=== PATIENT | male | born 1935 ===

== ENCOUNTER 2016-10-01 15:17 | Inpatient (IN) | payer MEDICARE, OTHER ==
[2016-10-01] MEDS ORDERED: Iohexol 240 (50 ml) PO STA (16:13)
[2016-10-01] MEDS ORDERED: Sodium Chloride 0.9% 1,000 ML IV ONE (16:13)
[2016-10-01 16:47] LABS: BASO % 0.3 % (0.0-2.0); EOS % 0.1 % (0.0-4.0); HEMATOCRIT 36.5 % (35.0-51.0); LYMPH # 0.8 K/uL (1.0-4.3); LYMPH % 5.9 % (20.0-40.0); MEAN CORPUSCULAR HEMOGLOBIN 22.5 pg (27.0-31.0); MEAN CORPUSCULAR HGB CONC 31.4 g/dL (33.0-37.0); MEAN PLATELET VOLUME 8.8 fL (7.2-11.7); MONO # 0.7 K/uL (0.0-0.8); MONO % 5.5 % (0.0-10.0); NRBC % 0.1 % (0.0-2.0); PLATELET COUNT 252 K/uL (130-400); RED CELL DISTRIBUTION WIDTH 20.3 % (11.5-14.5)
[2016-10-01 16:48] LABS: MEAN CELL VOLUME 71.8 fL (80.0-94.0); WHITE BLOOD COUNT 13.5 K/uL (4.8-10.8)
[2016-10-01] MEDS ORDERED: Iohexol 240 (50 ml) ONE (16:52)
[2016-10-01] MEDS ORDERED: Sodium Chloride 0.9% 1,000 ML ONE (16:53)
[2016-10-01 16:55] LABS: INR 1.1
[2016-10-01 16:58] LABS: CHLORIDE 99 mmol/L (98-107)
[2016-10-01 16:59] LABS: POTASSIUM 4.8 mmol/L (3.6-5.2); SODIUM 137 mmol/L (132-148)
[2016-10-01 17:01] LABS: ALKALINE PHOSPHATASE 78 U/L (38-126); AST/SGOT 60 U/L (17-59); BILIRUBIN,TOTAL 1.4 mg/dL (0.2-1.3); BLOOD UREA NITROGEN 16 mg/dL (9-20); CARBON DIOXIDE 27 mmol/L (22-30); GFR AFRICAN-AMERICAN > 60; TOTAL PROTEIN 8.8 g/dL (6.3-8.3)
[2016-10-01 17:02] LABS: ALT/SGPT 32 U/L (21-72); CALCIUM 9.3 mg/dl (8.6-10.4); GLUCOSE,RANDOM 104 mg/dL (75-110)
[2016-10-01 17:06] LABS: ALB/GLOB RATIO 1.1 (1.0-2.1)
--- NOTE | 2016-10-01 17:27 | C.PDOC ---
Time Seen by Provider: 10/01/16 15:50 Chief Complaint (Nursing): Abdominal Pain History Per: Patient, Family Onset/Duration Of Symptoms: Hrs (since 11am this morning) Current Symptoms Are (Timing): Still Present Severity: Moderate Location Of Pain/Discomfort: Diffuse Quality Of Discomfort: Unable To Describe, "Pain" Associated Symptoms: Nausea, Vomiting Alleviating Factors: None Last Bowel Movement: Today Additional History Per: Prior Records Past Medical History Reviewed: Historical Data, Nursing Documentation, Vital Signs Vital Signs: Last Vital Signs Temp 98 F 10/01/16 20:00 Pulse 85 10/01/16 20:00 Resp 16 10/01/16 20:00 BP 185/89 H 10/01/16 20:00 Pulse Ox 98 10/01/16 20:38 - Medical History PMH: Asthma, Bronchitis, HTN, Hypercholesterolemia, Pneumonia (2010) Surgical History: Appendectomy, Endoscopy, Hernia Repair Other Surgeries: Colon resection. - [facility] Procedures INSPECTION OF LOWER INTESTINAL TRACT, ENDO (02/18/16) Family History: States: Unknown Family Hx - Social History Hx Tobacco Use: No Hx Alcohol Use: Yes (social ,last drink yesterday,3 beers) Hx Substance Use: No - Immunization History Hx Tetanus Toxoid Vaccination: No Hx Influenza Vaccination: Yes Hx Pneumococcal Vaccination: Yes Review Of Systems Except As Marked, All Systems Reviewed And Found Negative. Constitutional: Negative for: Fever, Weakness Cardiovascular: Negative for: Chest Pain Respiratory: Negative for: Shortness of Breath, Hemoptysis Gastrointestinal: Positive for: Nausea, Vomiting, Abdominal Pain. Negative for : Diarrhea, Constipation, Melena, Hematochezia, Hematemesis Genitourinary: Negative for: Dysuria Musculoskeletal: Positive for: Back Pain. Negative for: Neck Pain Skin: Negative for: Rash Neurological: Negative for: Weakness, Numbness, Seizures, Altered Mental Status , Headache Physical Exam - Physical Exam Appears: Non-toxic, No Acute Distress Skin: Normal Color, Warm, Dry, No Rash Head: Atraumatic, Normacephalic Eye(s): bilateral: PERRL, EOMI Neck: Normal ROM, Supple Cardiovascular: Rhythm Regular Respiratory: Normal Breath Sounds, No Accessory Muscle Use Gastrointestinal/Abdominal: Soft, Tenderness (nonspecific) Back: No CVA Tenderness Male Genital: No Testicular Tenderness, No Testicular Swelling, No Scrotal Swelling Extremity: Normal ROM Neurological/Psych: Oriented x3, Normal Motor, Normal Sensation ED Course And Treatment - Laboratory Results Result Diagrams: 10/01/16 16:42 10/01/16 16:42 O2 Sat by Pulse Oximetry: 98 Pulse Ox Interpretation: Normal - CT Scan/US CT abd/pelv Other Rad Studies (CT/US): Read By Radiologist, Radiology Report Reviewed CT/US Interpretation: SBO. - Physician Consult Information Physician Contacted: Kishore Gracia (Surg.) Outcome Of Conversation: He will consult. Pt also signed out to the neurosurgical nurse practitioner loss prevention representative. Progress - Interventions Interventions:: Observation, Intravenous fluid - Medications Administered Intravenous: Antiemetic, Other (PPI) - Data Reviewed Data Reviewed: Lab, Diagnostic imaging, Old records - Patient Status Patient status: Partially improved - Continuity of Care Discussed patient case with:: Patient, Family-HIPPA compliant, ED Nurse, PMD Discussed pt. case with computer consultant/specialty: General Surgery - Patient Plan Patient Plan: Admission Disposition Discussed With Dr.: Russell Fairbanks Comment: He accepted pt on his service and requested Dr. Gracia be consulted for surgery. Doctor Will See Patient In The: Hospital Counseled Patient/Family Regarding: Studies Performed, Diagnosis - Disposition Disposition: HOSPITALIZED Disposition Time: 21:03 Condition: GUARDED - Clinical Impression Clinical Impression: SBO (small bowel obstruction)
[2016-10-01 17:41] LABS: RBC URINE 3 /hpf (0-3); URINE BACTERIA RARE (<OCC); URINE BILIRUBIN NEGATIVE (NEGATIVE); URINE BLOOD NEGATIVE (NEGATIVE); URINE COLOR Yellow (YELLOW); URINE GLUCOSE (UA) NORMAL (Normal); URINE KETONE NEGATIVE (NEGATIVE); URINE LEUKOCYTE ESTERASE NEG Leu/uL (Negative); URINE PROTEIN 1+ mg/dL (NEGATIVE); URINE UROBILINOGEN NORMAL mg/dL (0.2-1.0); WBC URINE 3 /hpf (0-5)
[2016-10-01 17:50] LABS: EOSINOPHIL 1 % (0-4); NEUTROPHIL 87 % (50-75); TOTAL CELLS COUNTED 100
[2016-10-01] MEDS ORDERED: Iodixanol 320 MG/ML 100 ML BOTTLE IV ONE (18:38)
--- NOTE | 2016-10-01 22:09 | CP.PCM.CON ---
History of Present Illness - History of Present Illness History of Present Illness: Surgery: Dr. Gracia Reason for consult: SBO CC: vomiting, multiple episodes HPI: Patient is an 81 y/o male w/ extensive past surgical history who presents complaining of diffuse abdominal pain, nausea, and multiple episodes of vomiting that started this morning. Patient describes the emesis is bilious, nonbloody. He reports the vomiting started spontaneously this morning without provocating event. He complains of excessive belching and abdominal bloating. He describes the pain in his stomach as dull mostly in the epigastric area radiating to remainder of abdomen and right flank. He reports similar symptoms in the past which required a tube in his nose back in 2014. Eventually his obstruction resolved with conservative treatment only. PMH: HTN, HLD, asthma, colon ca s/p partial colectomy and chemotherapy PSH: partial colectomy w/ reanastomosis, at some point patient had ostomy, possible diverting (patient unsure), in which he developed a para-stomal hernia requiring repair,lap appendectomy, colonoscopy social: lives at home alone, performs all ADLS, denies tobacco use, social ETOH use PMD: Dr. Fairbanks Review of Systems - Review of Systems All systems: reviewed and no additional remarkable complaints except Review of Systems: unless stated in HPI - Constitutional Constitutional: absent: Chills, Fever - EENT Eyes: absent: Blurred Vision, Change in Vision Ears: Dizziness. absent: Disequilibrium Nose/Mouth/Throat: absent: Nasal Congestion, Nasal Trauma - Cardiovascular Cardiovascular: absent: Chest Pain, Syncope - Respiratory Respiratory: absent: Cough, Wheezing - Gastrointestinal Gastrointestinal: Abdominal Pain, Belching, Bloating, Constipation, Cramping, Nausea, Vomiting. absent: Coffee Ground Emesis, Diarrhea - Genitourinary Genitourinary: absent: Dysuria, Hematuria - Musculoskeletal Musculoskeletal: absent: Numbness, Tingling - Psychiatric Psychiatric: absent: Confusion, Depression - Endocrine Endocrine: absent: Polydipsia, Polyphagia - Hematologic/Lymphatic Hematologic: absent: Easy Bleeding, Easy Bruising Past Patient History - Infectious Disease Hx of Infectious Diseases: None - Past Medical History & Family History Past Medical History?: Yes - Past Social History Smoking Status: Never Smoked - CARDIAC Hx Hypercholesterolemia: Yes Hx Hypertension: Yes - PULMONARY Hx Asthma: Yes Hx Bronchitis: Yes Hx Pneumonia: Yes (2010) - NEUROLOGICAL Hx Neurological Disorder: No - HEENT Hx HEENT Problems: Yes Other/Comment: Difficulty hearing of R Ear - RENAL Hx Chronic Kidney Disease: No - ENDOCRINE/METABOLIC Hx Endocrine Disorders: No - HEMATOLOGICAL/ONCOLOGICAL Hx Blood Disorders: Yes Hx Cancer: Yes (colorectal) Hx Chemotherapy: Yes (2002) - INTEGUMENTARY Hx Dermatological Problems: No - MUSCULOSKELETAL/RHEUMATOLOGICAL Hx Musculoskeletal Disorders: No Hx Falls: No - GASTROINTESTINAL Hx Gastrointestinal Disorders: Yes Other/Comment: COLON CANCER - GENITOURINARY/GYNECOLOGICAL Hx Genitourinary Disorders: No - PSYCHIATRIC Hx Substance Use: No - SURGICAL HISTORY Hx Appendectomy: Yes - ANESTHESIA Hx Anesthesia: Yes Hx Anesthesia Reactions: No Hx Malignant Hyperthermia: No Meds Allergies/Adverse Reactions: Allergies Allergy/AdvReac Type Severity Reaction Status Date / Time diphenhydramine HCl AdvReac SHORTNESS Verified 02/19/16 17:11 [From Benadryl] OF BREATH Physical Exam - Constitutional Appears: Non-toxic, No Acute Distress - Head Exam Head Exam: ATRAUMATIC, NORMOCEPHALIC - Eye Exam Eye Exam: EOMI, Normal appearance - ENT Exam ENT Exam: Mucous Membranes Moist - Respiratory Exam Respiratory Exam: NORMAL BREATHING PATTERN. absent: Respiratory Distress - Cardiovascular Exam Cardiovascular Exam: REGULAR RHYTHM. absent: Tachycardia - GI/Abdominal Exam GI & Abdominal Exam: Distended, Soft, Tenderness (mainly epigastric ). absent: Guarding, Rebound, Rigid Additional comments: midline surgical incisions scar noted - Extremities Exam Extremities exam: Positive for: normal inspection. Negative for: calf tenderness - Neurological Exam Neurological exam: Alert - Psychiatric Exam Psychiatric exam: Normal Affect, Normal Mood - Skin Skin Exam: Dry, Intact, Warm Results - Vital Signs Recent Vital Signs: Last Vital Signs Temp 98 F 10/01/16 20:00 Pulse 85 10/01/16 20:00 Resp 16 10/01/16 20:00 BP 185/89 H 10/01/16 20:00 Pulse Ox 98 10/01/16 21:04 - Labs Result Diagrams: 10/01/16 16:42 10/01/16 16:42 Assessment & Plan - Assessment and Plan (Free Text) Assessment: 81 y/o male w/ small bowel obstruction Plan: -CT shows SBO, w/ moderate hiatal hernia -NGT on low continuous suction -NPO -IVFs -electrolyte repletion prn -serial abdominal exams -am labs -zofran for nausea -d/w Dr. Basil Oro
[2016-10-01] MEDS ORDERED: HYDROmorphone 0.5 mg/0.5 ml ISec IVP PRN (22:19)
[2016-10-01] MEDS: Lactated Ringer's 1,000 ML IV SCH (22:50)
[2016-10-02] MEDS: Lactated Ringer's 1,000 ML IV SCH ×3 (06:30→23:30)
--- NOTE | 2016-10-02 07:56 | CP.PCM.PN ---
Subjective - Date & Time of Evaluation Date of Evaluation: 10/02/16 Time of Evaluation: 07:53 - Subjective Subjective: Surgery: Dr. Gracia Pt seen and examined Resting comfortably in bed. Pain controlled. No N/V. Passing flatus no BM. Objective - Vital Signs/Intake and Output Vital Signs (last 24 hours): Temp Pulse Resp BP Pulse Ox 98.3 F 80 20 156/73 H 96 10/02/16 00:00 10/02/16 00:00 10/02/16 00:00 10/02/16 00:00 10/02/16 00:00 Intake and Output: 10/02/16 10/02/16 06:59 18:59 Output Total 1200 Balance -1200 - Medications Medications: Current Medications Heparin Sodium (Porcine) (Heparin) 5,000 units SC Q12 [facility] Hydromorphone HCl (Dilaudid) 0.5 mg IVP Q4H PRN PRN Reason: Pain, moderate (4-7) Lactated Ringer's (Lactated Ringer's) 1,000 mls @ 120 mls/hr IV .Q8H20M [facility] Last Admin: 10/02/16 06:30 Dose: 120 mls/hr Ondansetron HCl (Zofran Inj) 4 mg IVP Q4 [facility] Last Admin: 10/02/16 05:00 Dose: 4 mg Pantoprazole Sodium (Protonix Inj) 40 mg IVP DAILY [facility] - Labs Labs: PT 12.3 SECONDS (9.7-12.2) H 10/01/16 16:42 INR 1.1 10/01/16 16:42 APTT 30 SECONDS (21-34) 10/01/16 16:42 - Constitutional Appears: Non-toxic, No Acute Distress - Head Exam Head Exam: ATRAUMATIC, NORMOCEPHALIC - Eye Exam Eye Exam: EOMI - ENT Exam ENT Exam: Mucous Membranes Moist, Normal External Ear Exam (NGT in place) - Neck Exam Neck Exam: Full ROM - Respiratory Exam Respiratory Exam: NORMAL BREATHING PATTERN. absent: Accessory Muscle Use, Respiratory Distress - GI/Abdominal Exam GI & Abdominal Exam: Firm (B/L lower quadrants), Soft. absent: Distended, Guarding, Rigid, Tenderness, Rebound - Extremities Exam Extremities Exam: absent: Calf Tenderness, Pedal Edema - Neurological Exam Neurological Exam: Alert, Awake, Oriented x3 - Psychiatric Exam Psychiatric exam: Normal Mood Assessment and Plan - Assessment and Plan (Free Text) Assessment: 81M w. SBO -NGT 1100cc initially in ED, 300cs overnight, non-bilious -Keep NGT to suction -NPO -IVF -pain meds -serial exams -monitor bowel fxn -d/w attending Mary PGY2
[2016-10-02 08:20] LABS: BASO % 0.3 % (0.0-2.0); EOS % 0.3 % (0.0-4.0); HEMATOCRIT 32.8 % (35.0-51.0); LYMPH # 1.1 K/uL (1.0-4.3); MEAN CELL VOLUME 70.8 fL (80.0-94.0); MEAN CORPUSCULAR HEMOGLOBIN 22.8 pg (27.0-31.0); MEAN CORPUSCULAR HGB CONC 32.3 g/dL (33.0-37.0); MEAN PLATELET VOLUME 9.1 fL (7.2-11.7); MONO % 11.5 % (0.0-10.0); NRBC % 0.1 % (0.0-2.0); RED CELL DISTRIBUTION WIDTH 20.3 % (11.5-14.5); WHITE BLOOD COUNT 8.5 K/uL (4.8-10.8)
--- NOTE | 2016-10-02 08:54 | CT ---
PROCEDURE: CT Abdomen and Pelvis with contrast HISTORY: Abd pain and vomiting. COMPARISON: None. TECHNIQUE: Contrast dose: 100 mL Visipaque 320 Radiation dose: Total exam DLP = 489.65 mGy-cm. This CT exam was performed using one or more of the following dose reduction techniques: Automated exposure control, adjustment of the mA and/or kV according to patient size, and/or use of iterative reconstruction technique. FINDINGS: LOWER THORAX: Moderate hiatal hernia. 2 mm subpleural nodule anterior segment right upper lobe. 4 mm subpleural nodule in right middle lobe. The 4 mm nodule is evident on prior examinations dating back to 06/24/2014. 4 mm nodule abutting or within the left major fissure, in the superior segment left lower lobe. Possible intrapulmonary lymph node. This is not included on prior examinations. By a Fleischner society criteria, no followup is advised for these nodules, given their size. LIVER: Unremarkable. No gross lesion or ductal dilatation. GALLBLADDER AND BILE DUCTS: Cholelithiasis. No mural thickening or pericholecystic fluid. 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 Unchanged compared to several prior examinations. No other pancreatic mass. No evidence of pancreatitis. No ductal dilatation. . SPLEEN: Unremarkable. ADRENALS: Unremarkable. No mass. KIDNEYS AND URETERS: Right upper pole cortical cyst, 1.6 cm. 10 mm cyst mid left kidney, stable. No calculus or hydronephrosis. VASCULATURE: Unremarkable. No aortic aneurysm. BOWEL: Mechanical small-bowel obstruction. Point of obstruction identified. This can be demonstrated on series 3, image 125 and series 601, image 30. This is approximately at the level of the distal jejunum or jejunoileal junction. Decompressed small bowel loops distal to this point of caliber change. Status post sigmoidectomy with colo rectal anastomosis. Evidence of prior appendectomy. APPENDIX: Status post appendectomy PERITONEUM: Right ventral abdominal mesh noted. No ascites. LYMPH NODES: Unremarkable. No enlarged lymph nodes. BLADDER: Unremarkable. REPRODUCTIVE: Normal prostate BONES: Stable small rounded lucent lesion in the left side of the L1 vertebral body, unchanged compared to 06/24/2014. 6 mm diameter. No other lytic or blastic lesions identified. Nonspecific finding. OTHER FINDINGS: None. IMPRESSION: Mechanical small-bowel obstruction at approximately the level of the jejunoileal junction. Moderate hiatal hernia. Cholelithiasis without evidence of cholecystitis. Additional minor findings as detailed above. Preliminary interpretation of this examination was reported by [facility] at 8:03 p.m. on 10/01/2016. There is concurrence of this report with the preliminary interpretation.
[2016-10-02 09:20] LABS: CHLORIDE 102 mmol/L (98-107); POTASSIUM 3.6 mmol/L (3.6-5.2)
[2016-10-02 09:22] LABS: ALB/GLOB RATIO 1.2 (1.0-2.1); AST/SGOT 29 U/L (17-59); BILIRUBIN,TOTAL 0.9 mg/dL (0.2-1.3); CARBON DIOXIDE 25 mmol/L (22-30); GFR AFRICAN-AMERICAN > 60
[2016-10-02 09:23] LABS: ALKALINE PHOSPHATASE 67 U/L (38-126); ALT/SGPT 30 U/L (21-72); BLOOD UREA NITROGEN 12 mg/dL (9-20); CALCIUM 8.6 mg/dl (8.6-10.4); GLUCOSE,RANDOM 87 mg/dL (75-110); MAGNESIUM 2.3 mg/dL (1.6-2.3)
[2016-10-02 09:36] LABS: SODIUM 137 mmol/L (132-148)
[2016-10-03 07:19] LABS: BASO % 0.4 % (0.0-2.0); EOS # 0.1 K/uL (0.0-0.7); EOS % 2.5 % (0.0-4.0); HEMATOCRIT 32.8 % (35.0-51.0); LYMPH % 17.6 % (20.0-40.0); MEAN CELL VOLUME 71.1 fL (80.0-94.0); MEAN CORPUSCULAR HEMOGLOBIN 22.6 pg (27.0-31.0); MEAN CORPUSCULAR HGB CONC 31.8 g/dL (33.0-37.0); MEAN PLATELET VOLUME 8.8 fL (7.2-11.7); MONO # 0.7 K/uL (0.0-0.8); MONO % 11.7 % (0.0-10.0); RED CELL DISTRIBUTION WIDTH 19.7 % (11.5-14.5); WHITE BLOOD COUNT 5.9 K/uL (4.8-10.8)
--- NOTE | 2016-10-03 07:45 | CARD ---
APPROVED REPORT EKG Measurement Heart [id number] <Conclusion> Normal sinus rhythm Nonspecific ST and T wave abnormality Abnormal ECG
[2016-10-03 07:48] LABS: CHLORIDE 107 mmol/L (98-107); POTASSIUM 3.9 mmol/L (3.6-5.2); SODIUM 138 mmol/L (132-148)
[2016-10-03 07:51] LABS: ALB/GLOB RATIO 1.2 (1.0-2.1); ALKALINE PHOSPHATASE 65 U/L (38-126); ALT/SGPT 24 U/L (21-72); AST/SGOT 28 U/L (17-59); BILIRUBIN,TOTAL 0.8 mg/dL (0.2-1.3); BLOOD UREA NITROGEN 9 mg/dL (9-20); CALCIUM 8.5 mg/dl (8.6-10.4); CARBON DIOXIDE 26 mmol/L (22-30); GFR AFRICAN-AMERICAN > 60; GLUCOSE,RANDOM 83 mg/dL (75-110); TOTAL PROTEIN 6.9 g/dL (6.3-8.3)
[2016-10-03] MEDS: Lactated Ringer's 1,000 ML IV SCH (08:02)
--- NOTE | 2016-10-03 08:19 | HP ---
HISTORY OF PRESENT ILLNESS: This is an 81-years old male with history of multiple medical problems who presented to Emergency Room with abdominal pain and vomiting for 1 days duration. The patient had previous similar presentation CAT scan of the abdomen and pelvis was done in the Emergency Room and was diagnosed with small-bowel obstruction , cholelithiasis without evidence of cholecystitis . REVIEW OF SYSTEMS: Other review of systems is negative. ALLERGIES: NKA. MEDICATIONS: Norvasc 5 mg daily, Ultram 50 mg daily, fenofibrate 200 mg daily, Crestor 10 mg daily and aspirin 81 mg daily. SOCIAL HISTORY: No history of smoking, ETOH or substance abuse. FAMILY HISTORY: Not contributory. PAST MEDICAL HISTORY: History of hypertension . PHYSICAL EXAMINATION: GENERAL: The patient is in bed, comfortable, not in cardiopulmonary distress. VITAL SIGNS: BP 120/70 temperature 98.2, respiratory rate 20 and pulse is 71. HEENT: Pupils equal and reactive to light. Normal-appearing mucosa of the conjunctivae, oropharyngeal and nasal membrane mucosa. NECK: Supple, no JVD, no carotid bruit, no lymph node and no thyromegaly. CHEST AND LUNGS: Bilateral symmetrical expansion, good air exchange, no rales and no rhonchi. CARDIOVASCULAR: PMI not localized. S1, S2. No additional sounds. ABDOMEN: Normoactive bowel sounds, no tenderness, no organomegaly and no masses. EXTREMITIES: No cyanosis, no clubbing , no edema ASSESSMENT: 1. Small bowel obstruction. 2. History of hypertension. 3. Hypertriglyceridemia. PLAN: At this point, we will remove the nasogastric tube as the patient passed flatus and abdominal pain is less. We will advanc diet to clear liquids as tolerated. Russell Fairbanks MD cc: 167 TT: 10/02/2016 21:04:20 sn MTDD
--- NOTE | 2016-10-03 09:20 | CP.PCM.PN ---
Subjective - Date & Time of Evaluation Date of Evaluation: 10/03/16 Time of Evaluation: 09:45 - Subjective Subjective: Surgery: Dr. Gracia Patient doing well today. Patient denies abdominal pain, n/v/f/c. He reports 2 BMs, one last night and 1 this am. + flatus. Tolerating clears. Objective - Vital Signs/Intake and Output Vital Signs (last 24 hours): Temp Pulse Resp BP Pulse Ox 97.8 F 67 20 164/78 H 97 10/03/16 00:00 10/03/16 06:00 10/03/16 06:00 10/03/16 06:00 10/03/16 06:00 Intake and Output: 10/03/16 10/03/16 06:59 18:59 Intake Total 1300 Output Total 900 Balance 400 - Medications Medications: Current Medications Heparin Sodium (Porcine) (Heparin) 5,000 units SC Q12 [facility] Last Admin: 10/02/16 22:26 Dose: 5,000 units Hydromorphone HCl (Dilaudid) 0.5 mg IVP Q4H PRN PRN Reason: Pain, moderate (4-7) Lactated Ringer's (Lactated Ringer's) 1,000 mls @ 120 mls/hr IV .Q8H20M [facility] Last Admin: 10/02/16 23:30 Dose: Not Given Ondansetron HCl (Zofran Inj) 4 mg IVP Q4 [facility] Last Admin: 10/03/16 04:45 Dose: 4 mg Pantoprazole Sodium (Protonix Inj) 40 mg IVP DAILY [facility] Last Admin: 10/02/16 11:35 Dose: 40 mg - Labs Labs: 10/03/16 07:04 10/03/16 07:04 PT 12.3 SECONDS (9.7-12.2) H 10/01/16 16:42 INR 1.1 10/01/16 16:42 APTT 30 SECONDS (21-34) 10/01/16 16:42 - Constitutional Appears: Non-toxic, No Acute Distress - Head Exam Head Exam: ATRAUMATIC, NORMOCEPHALIC - Eye Exam Eye Exam: EOMI, Normal appearance - ENT Exam ENT Exam: Mucous Membranes Moist - Respiratory Exam Respiratory Exam: NORMAL BREATHING PATTERN. absent: Respiratory Distress - Cardiovascular Exam Cardiovascular Exam: REGULAR RHYTHM. absent: Tachycardia - GI/Abdominal Exam GI & Abdominal Exam: Soft. absent: Distended, Guarding, Tenderness, Rebound - Neurological Exam Neurological Exam: Alert, Awake Assessment and Plan - Assessment and Plan (Free Text) Assessment: 81 y/o male w/ SBO-resolving Plan: -ADAT -encourage ambulation -serial abdominal exams -if continues to tolerate diet and have bowel function, is cleared from surgical standpoint -further recs per Dr. Basil Oro PGY1
--- NOTE | 2016-10-03 23:58 | PN ---
DATE: 10/03/2016 SUBJECTIVE: The patient is seen today. He has less abdominal pain, and he is still on liquid diet and IV fluids. PHYSICAL EXAMINATION: VITAL SIGNS: Blood pressure 135/75, temperature 98.7, respiratory rate 20, and pulse 67. HEENT: Pupils equal, reactive to light. Normal-appearing mucosa of the conjunctivae, oropharyngeal, and nasal membrane mucosa. NECK: Supple. No JVD. No carotid bruit. No lymph node. No thyromegaly. CHEST AND LUNGS: Bilateral symmetrical expansion. No rhonchi. CARDIOVASCULAR: PMI not localized. S1, S2. No additional sounds. ABDOMEN: Normoactive bowel sounds. No tenderness. No organomegaly. No masses. EXTREMITIES: No cyanosis. No clubbing. No edema. CENTRAL NERVOUS SYSTEM: Alert, awake, oriented x 3. No neurological deficits could be appreciated. ASSESSMENT: Small-bowel obstruction, which is resolving, and currently the patient is tolerating liquid diet. PLAN: We will advance to regular diet, and if the patient is tolerating, we will discharge home. We will discontinue IV fluid. [facility] cc: 167 TT: 10/03/2016 23:57:56 Confirmation # [id number] Dictation # [id number]
[2016-10-04 00:26] VITALS: RESP 20
[2016-10-04 08:11] VITALS: BP 160/74; PULSE 72; TEMP 98.1; O2SAT 95
--- NOTE | 2016-10-04 08:33 | CP.PCM.PN ---
Subjective - Date & Time of Evaluation Date of Evaluation: 10/04/16 Time of Evaluation: 08:30 - Subjective Subjective: PGY1 Progress Note for Dr. Gracia: Patient seen and examined. Patient states he feels well and denies abdominal pain, nausea, vomiting. Patient reports BM this morning and states he is eating well. Objective - Vital Signs/Intake and Output Vital Signs (last 24 hours): Temp Pulse Resp BP Pulse Ox 98.1 F 72 20 160/74 H 95 10/04/16 08:10 10/04/16 08:10 10/04/16 08:10 10/04/16 08:10 10/04/16 08:10 Intake and Output: 10/04/16 10/04/16 06:59 18:59 Intake Total 240 Balance 240 - Medications Medications: Current Medications Heparin Sodium (Porcine) (Heparin) 5,000 units SC Q12 [facility] Last Admin: 10/03/16 22:00 Dose: 5,000 units Ondansetron HCl (Zofran Inj) 4 mg IVP Q4 [facility] Last Admin: 10/04/16 08:03 Dose: 4 mg Pantoprazole Sodium (Protonix Inj) 40 mg IVP DAILY [facility] Last Admin: 10/04/16 08:03 Dose: 40 mg - Labs Labs: 10/03/16 07:04 10/03/16 07:04 PT 12.3 SECONDS (9.7-12.2) H 10/01/16 16:42 INR 1.1 10/01/16 16:42 APTT 30 SECONDS (21-34) 10/01/16 16:42 - Constitutional Appears: Non-toxic, No Acute Distress - Head Exam Head Exam: ATRAUMATIC, NORMOCEPHALIC - Eye Exam Eye Exam: EOMI - ENT Exam ENT Exam: Mucous Membranes Moist - Respiratory Exam Respiratory Exam: NORMAL BREATHING PATTERN - GI/Abdominal Exam GI & Abdominal Exam: Soft. absent: Distended, Guarding, Tenderness - Neurological Exam Neurological Exam: Alert, Awake - Psychiatric Exam Psychiatric exam: Normal Affect - Skin Skin Exam: Warm Assessment and Plan - Assessment and Plan (Free Text) Assessment: 81 year old male with resolving SBO -patient tolerating regular diet -patient cleared for discharge from surgical standpoint -D/W Dr. Gracia
--- NOTE | 2016-10-04 15:32 | CP.PCM.PN ---
Subjective - Date & Time of Evaluation Date of Evaluation: 10/04/16 Time of Evaluation: 11:00 - Subjective Subjective: Awake, alert, no abdominal pain, tolerating regular diet, NAD. Objective - Vital Signs/Intake and Output Vital Signs (last 24 hours): Temp Pulse Resp BP Pulse Ox 98.1 F 72 20 160/74 H 95 10/04/16 08:10 10/04/16 08:10 10/04/16 08:10 10/04/16 08:10 10/04/16 08:10 Intake and Output: 10/04/16 10/04/16 06:59 18:59 Intake Total 240 500 Balance 240 500 - Labs Labs: 10/03/16 07:04 10/03/16 07:04 PT 12.3 SECONDS (9.7-12.2) H 10/01/16 16:42 INR 1.1 10/01/16 16:42 APTT 30 SECONDS (21-34) 10/01/16 16:42 Assessment and Plan - Assessment and Plan (Free Text) Assessment: Patient admitted with small bowel obstruction, seen and examined, tolerating regular diet, no abdominal pain. Cleared by surgery. D/W DR Fairbanks, plan for discharge home today. Advised to follow up in the office in 1 week.
--- NOTE | 2016-10-06 09:14 | DS ---
This is a late entry for discharge summary done on 10/04/2016. REASON FOR ADMISSION: This is an 81-year-old male with history of multiple medical problems including previous abdominal surgeries who was admitted for small-bowel obstruction. COURSE OF HOSPITALIZATION: The patient was admitted to medical floor, and he had a nasogastric tube placed. The patient had a surgical consultation done by Dr. Gracia. The patient's abdominal pain was relieved, and the patient started to have flatus. The patient's nasogastric tube was removed, a nd started on liquid diet that he tolerated well. Diet was advanced to regular diet, and the patient tolerated and discharged home in a stable condition to continue the preadmission medications. FINAL DIAGNOSES: Mechanical small-bowel obstruction. Vitamin D deficiency. Hypertriglyceridemia. Russell Fairbanks MD cc: 167 TT: 10/06/2016 09:13:56 jn
== END 2016-10-04 15:12 | disposition home or self-care (01) | DRG 390 ==
LOC: C.ER 15:17 → C.3T 21:04
PROVIDERS: ADMIT Internal Medicine; ATTEND Internal Medicine
DX: K56.60 Unspecified intestinal obstruction (principal); I10 Essential (primary) hypertension; E78.1 Pure hyperglyceridemia; E78.5 Hyperlipidemia, unspecified; J45.909 Unspecified asthma, uncomplicated; E55.9 Vitamin D deficiency, unspecified; Z90.49 Acquired absence of other specified parts of digestive tract; Z85.038 Personal history of other malignant neoplasm of large intestine

== ENCOUNTER 2017-01-27 22:34 | Emergency (ER) | payer MEDICARE, OTHER ==
[2017-01-27] MEDS ORDERED: Iohexol 240 (50 ml) PO STA (23:04)
[2017-01-27] MEDS ORDERED: Sodium Chloride 0.9% 500 ML IV ONE (23:04)
[2017-01-27 23:23] LABS: RBC URINE 1 /hpf (0-3); URINE BACTERIA OCC (<OCC); URINE BILIRUBIN NEGATIVE (NEGATIVE); URINE BLOOD NEGATIVE (NEGATIVE); URINE COLOR Yellow (YELLOW); URINE GLUCOSE (UA) NORMAL (Normal); URINE KETONE NEGATIVE (NEGATIVE); URINE LEUKOCYTE ESTERASE NEG Leu/uL (Negative); URINE PROTEIN NEGATIVE (NEGATIVE); URINE UROBILINOGEN NORMAL mg/dL (0.2-1.0); WBC URINE 1 /hpf (0-5)
[2017-01-27] MEDS ORDERED: Iohexol 240 (50 ml) ONE (23:23)
[2017-01-27 23:24] LABS: BASO % 0.2 % (0.0-2.0); EOS % 0.3 % (0.0-4.0); HEMATOCRIT 33.7 % (35.0-51.0); LYMPH # 0.7 K/uL (1.0-4.3); LYMPH % 7.1 % (20.0-40.0); MEAN CELL VOLUME 71.8 fL (80.0-94.0); MEAN CORPUSCULAR HEMOGLOBIN 23.5 pg (27.0-31.0); MEAN CORPUSCULAR HGB CONC 32.7 g/dL (33.0-37.0); MONO # 0.8 K/uL (0.0-0.8); MONO % 8.1 % (0.0-10.0); PLATELET COUNT 245 K/uL (130-400); RED CELL DISTRIBUTION WIDTH 18.9 % (11.5-14.5); WHITE BLOOD COUNT 10.4 K/uL (4.8-10.8)
[2017-01-27] MEDS ORDERED: Sodium Chloride 0.9% 1,000 ML ONE (23:25)
[2017-01-27 23:33] LABS: CHLORIDE 106 mmol/L (98-107); POTASSIUM 4.1 mmol/L (3.6-5.2); SODIUM 144 mmol/L (132-148)
[2017-01-27 23:35] LABS: GFR AFRICAN-AMERICAN > 60
[2017-01-27 23:36] LABS: ALB/GLOB RATIO 1.2 (1.0-2.1); ALKALINE PHOSPHATASE 67 U/L (38-126); ALT/SGPT 28 U/L (21-72); AST/SGOT 24 U/L (17-59); BILIRUBIN,TOTAL 0.6 mg/dL (0.2-1.3); BLOOD UREA NITROGEN 13 mg/dL (9-20); CALCIUM 9.6 mg/dl (8.6-10.4); CARBON DIOXIDE 20 mmol/L (22-30); GLUCOSE,RANDOM 134 mg/dL (75-110); TOTAL PROTEIN 7.6 g/dL (6.3-8.3)
--- NOTE | 2017-01-27 23:39 | C.PDOC ---
Time Seen by Provider: 01/27/17 22:54 Chief Complaint (Nursing): Abdominal Pain History Per: Patient, Family Onset/Duration Of Symptoms: Hrs (this afternoon) Current Symptoms Are (Timing): Better Severity: Moderate Location Of Pain/Discomfort: Periumbilical Quality Of Discomfort: "Pain" Associated Symptoms: Nausea, Vomiting (x2) Alleviating Factors: None Last Bowel Movement: Today Additional History Per: Prior Records Past Medical History Reviewed: Historical Data, Nursing Documentation, Vital Signs Vital Signs: Last Vital Signs Temp 97.4 F L 01/27/17 22:42 Pulse 84 01/28/17 01:30 Resp 16 01/28/17 01:30 BP 158/80 H 01/28/17 01:30 Pulse Ox 98 01/28/17 01:30 - Medical History PMH: Asthma, Bronchitis, HTN, Hypercholesterolemia, Pneumonia (2010) Surgical History: Appendectomy, Endoscopy, Hernia Repair - [facility] Procedures INSPECTION OF LOWER INTESTINAL TRACT, ENDO (02/18/16) Family History: States: Unknown Family Hx - Social History Hx Tobacco Use: No Hx Alcohol Use: No Hx Substance Use: No - Immunization History Hx Tetanus Toxoid Vaccination: Yes Hx Influenza Vaccination: Yes Hx Pneumococcal Vaccination: Yes Review Of Systems Except As Marked, All Systems Reviewed And Found Negative. Constitutional: Negative for: Fever, Weakness Cardiovascular: Negative for: Chest Pain Respiratory: Negative for: Shortness of Breath Gastrointestinal: Negative for: Constipation, Melena, Hematochezia, Hematemesis Genitourinary: Negative for: Dysuria Musculoskeletal: Negative for: Neck Pain, Back Pain Skin: Negative for: Rash Neurological: Negative for: Weakness, Numbness, Seizures, Altered Mental Status Physical Exam - Physical Exam Appears: Non-toxic, No Acute Distress Skin: Normal Color, Warm, Dry Head: Atraumatic, Normacephalic Eye(s): bilateral: PERRL, EOMI Oral Mucosa: Moist Neck: Normal ROM, Supple Cardiovascular: Rhythm Regular Respiratory: Normal Breath Sounds, No Accessory Muscle Use Gastrointestinal/Abdominal: Soft, No Tenderness Back: No CVA Tenderness Extremity: Normal ROM Neurological/Psych: Oriented x3, Normal Motor, Normal Sensation ED Course And Treatment - Laboratory Results Result Diagrams: 01/27/17 23:21 01/27/17 23:21 ECG: Interpreted By Me, Viewed By Me ECG Rhythm: Sinus Rhythm ECG Interpretation: No Acute Changes Rate From EC O2 Sat by Pulse Oximetry: 99 Pulse Ox Interpretation: Normal - CT Scan/US CT abd/pelv Other Rad Studies (CT/US): Read By Radiologist, Radiology Report Reviewed CT/US Interpretation: IMPRESSION: There are a few nondistended loops of small bowel in the pelvis and lower abdomen but it is unclear. if these are peristaltic or represent short strictures. There is however, no holdup of enteric contrast. Additional findings as described above. Progress Note: Pt is tolerating PO. No vomiting or abdominal pain during ED stay. Reassessment Condition: Improved Progress - Interventions Interventions:: Observation, Intravenous fluid - Medications Administered Oral: Antihypertensive Intravenous: Antiemetic - Data Reviewed Data Reviewed: Lab, Diagnostic imaging, EKG, Old records - Patient Status Patient status: Mostly improved - Continuity of Care Discussed patient case with:: Patient, Family-HIPPA compliant, ED Nurse - Patient Plan Patient Plan: Discharge, F/U with PCP, Continue present meds Disposition Counseled Patient/Family Regarding: Studies Performed, Diagnosis, Need For Followup, Rx Given - Disposition Referrals: Russell Fairbanks MD [Staff Provider] - Disposition: HOME/ ROUTINE Disposition Time: 02:09 Condition: IMPROVED Additional Instructions: Follow up with your doctor this week. Return to the ER if you develop fever, vomiting, abdominal pain, worsening of symptoms or if you have any other concerns. Prescriptions: Ondansetron [Zofran] 4 mg PO Q8H PRN #15 tab PRN Reason: Nausea/Vomiting Pantoprazole Sodium [Protonix] 40 mg PO DAILY #14 ect Instructions: Acute Nausea and Vomiting (ED) Forms: [employer] ([place]) Print Language: CHADIAN - Clinical Impression Clinical Impression: Vomiting
[2017-01-27 23:45] LABS: BASOPHIL 1 % (0-2); NEUTROPHIL 85 % (50-75); TOTAL CELLS COUNTED 100
[2017-01-28] MEDS ORDERED: Iodixanol 320 MG/ML 100 ML BOTTLE IV ONE (00:22)
[2017-01-28 02:58] VITALS: BP 139/73; PULSE 76; RESP 18; TEMP 97.9; O2SAT 98
--- NOTE | 2017-01-28 11:14 | CT ---
PROCEDURE: CT abdomen and pelvis dated 2016 HISTORY: Abdominal and vomiting, h/o SBO COMPARISON: Comparison made with the CT scan of the abdomen and pelvis 02/18/2016. TECHNIQUE: Contiguous axial images of the abdomen and performed following oral and intravenous injection of approximately 100 cc Visipaque 320 contrast material. Given. Coronal and Sagittal reformats generated. Radiation dose: Total exam DLP = 444.12 mGy-cm. This CT exam was performed using one or more of the following dose reduction techniques: Automated exposure control, adjustment of the mA and/or kV according to patient size, and/or use of iterative reconstruction technique. FINDINGS: LOWER THORAX: Re- demonstrated small subpleural nodules within the anteromedial aspect of the medial segment right middle lobe and another along the anterolateral convexity. Mild bibasilar atelectasis. No evidence of basilar effusion or pneumothorax. Large hiatal hernia again noted. Heart size within range of normal. No pericardial effusion. LIVER: The liver exhibits normal size measuring 12.4 cm in CC dimension. Mild fatty hepatic infiltration. Portal and splenic veins are opacified. No obvious hepatic mass or collection seen. GALLBLADDER AND BILE DUCTS: Multiple intraluminal gallbladder calculi. Gallbladder appears contracted. No obvious pericholecystic fluid collections seen. . PANCREAS: Unremarkable. No mass. No ductal dilatation. SPLEEN: Spleen exhibits normal size and attenuation pattern. ADRENALS: No adrenal masses. KIDNEYS AND URETERS: . The kidneys demonstrate relatively symmetric nephrograms. No evidence of nephrolithiasis. Prominent extrarenal pelves bilaterally right larger than left. There is mild columnization of both proximal and mid ureters. No evidence of intraluminal urinary. There is a small partially exophytic cyst posterior upper pole left kidney. BLADDER: Urinary bladder is physiologically distended. No evidence of intraluminal urinary bladder calculi. Prostate gland measures REPRODUCTIVE: Prostate gland measures approximately 3.4 cm. APPENDIX: Appendix is not visualized on this study. Clinic correlation with surgical history recommended. BOWEL: Evaluation of the bowel is limited due to incomplete opacification. Stomach is incompletely distended which may in part account thick-walled appearance. Gastritis not excluded. . . Few loops of nondistended small bowel in the lower abdomen exhibit minimal wall thickening nonspecific. This could represent peristaltic waves . Possibility of localized wall thickening due to inflammatory process or stricture not excluded. Clinical correlation recommended. . No evidence of acute complete mechanical small bowel obstruction. There appears to be an anastomosis involving the distal descending/sigmoid colon. Moderate amount. . Moderate amount of stool fluid present within the cecum ascending colon nonspecific. Rule out diarrheal illness. PERITONEUM: No gross free intraperitoneal air. No free fluid. LYMPH NODES: No significant adenopathy. VASCULATURE: Mild atherosclerotic plaque changes seen along the abdominal aorta and iliac arteries. No evidence of abdominal aortic or iliac artery aneurysm. BONES: Mild multilevel degenerative spondylosis of the lumbar and to a lesser degree lower thoracic spine OTHER FINDINGS: None. IMPRESSION: Moderate size hiatal hernia. Mild bibasilar atelectasis. 2 small vague nodular densities right middle lobe. Mild fatty hepatic infiltration. Cholelithiasis. There are a few narrowed the loops of small bowel on the lower abdomen/ pelvis with wall thickening. Findings could represent peristalsis however nonspecific localized inflammatory process/ enteritis or stricture not excluded however there is no evidence of complete small bowel obstruction. Stool fluid and air is present within the large bowel nonspecific. Rule out a diarrheal illness. Apparent postoperative changes of anastomosis involving the distal descending/ proximal sigmoid colon. Correlation with surgical history recommended.
--- NOTE | 2017-01-29 00:16 | CARD ---
APPROVED REPORT EKG Measurement Heart [id number] <Conclusion> Normal sinus rhythm Normal ECG
== END 2017-01-28 02:57 | disposition home or self-care (01) ==
LOC: C.ER 22:34
DX: R11.10 Vomiting, unspecified (principal); I10 Essential (primary) hypertension
CPT/HCPCS: 74177; 80053; 81001; 83690; 85025; 93005; 96374; 96375; 99284; C9113; J2405; J7040; Q9966; Q9967

== ENCOUNTER 2017-04-17 15:58 | Inpatient (IN) | payer MEDICARE, OTHER ==
[2017-04-17] MEDS ORDERED: Sodium Chloride 0.9% 1,000 ML IV ONE (16:44)
[2017-04-17] MEDS ORDERED: Iohexol 240 (50 ml) PO STA (16:44)
--- NOTE | 2017-04-17 16:44 | C.PDOC ---
History Of Present Illness 81-year-old male, presents to the emergency department with complaints of vomiting and epigastric abdominal pain that started at 03:00 this morning, Patient states he has a Hx of appendectomy, colon resection due to colon CA and hernia repair. Denies any fevers or chills. No other complaints at this time. Patient NPO since 12:00 Time Seen by Provider: 04/17/17 16:05 History Per: Patient History/Exam Limitations: no limitations Onset/Duration Of Symptoms: Hrs Past Medical History Reviewed: Historical Data, Nursing Documentation, Vital Signs Vital Signs: Last Vital Signs Temp 97.6 F 04/17/17 16:08 Pulse 78 04/17/17 19:16 Resp 19 04/17/17 18:13 BP 201/88 H 04/17/17 19:16 Pulse Ox 93 L 04/17/17 21:20 - Medical History PMH: Asthma, Bronchitis, HTN, Hypercholesterolemia, Pneumonia (2010) Surgical History: Appendectomy, Endoscopy, Hernia Repair - [facility] Procedures INSPECTION OF LOWER INTESTINAL TRACT, ENDO (02/18/16) Family History: States: No Known Family Hx - Social History Hx Tobacco Use: No Hx Alcohol Use: No Hx Substance Use: No - Immunization History Hx Tetanus Toxoid Vaccination: Yes Hx Influenza Vaccination: Yes Hx Pneumococcal Vaccination: Yes Review Of Systems Except As Marked, All Systems Reviewed And Found Negative. Constitutional: Negative for: Fever, Chills Cardiovascular: Negative for: Chest Pain Respiratory: Negative for: Shortness of Breath Gastrointestinal: Positive for: Nausea, Vomiting, Abdominal Pain. Negative for : Diarrhea Musculoskeletal: Negative for: Back Pain Physical Exam - Physical Exam Appears: Non-toxic, No Acute Distress Skin: Warm, Dry, No Rash Head: Atraumatic, Normacephalic Eye(s): bilateral: Normal Inspection, PERRL Nose: Normal Oral Mucosa: Moist Lips: Normal Appearing Neck: Normal ROM Chest: Symmetrical Cardiovascular: Rhythm Regular, No Murmur Respiratory: Normal Breath Sounds, No Accessory Muscle Use Gastrointestinal/Abdominal: Soft, Tenderness (mild, epigastric), Distention ( mild), No Guarding, No Rebound Extremity: Normal ROM Neurological/Psych: Oriented x3, Normal Speech ED Course And Treatment - Laboratory Results Result Diagrams: 04/17/17 16:53 04/17/17 16:50 O2 Sat by Pulse Oximetry: 93 - Radiology CXR: Interpreted by Me CXR Interpretation: Yes: No Acute Disease Progress - Re-Evaluation Re-evaluation Note: 04/17/17 17:30 APPEARS COMFORTABLE NAD NO VOMIT SINCE PRIOR EXAM 04/17/17 17:57 +VOMIT. LIMITED PO CONTRAST INTAKE. PHENERGAN GIVEN 04/17/17 19:30 RECUR PAIN. UNABLE TO COMPLETE PO CONTRAST. 04/17/17 21:15 CT REPORT REVIEWED. POSSIBLE OBSTRUCTION? PRIOR HO BOWEL OBSTRUCTION D/W DR FAIRBANKS WILL ADMIT - Data Reviewed Data Reviewed: Lab, Diagnostic imaging, EKG, Old records Disposition Counseled Patient/Family Regarding: Studies Performed, Diagnosis - Disposition Disposition: HOSPITALIZED Disposition Time: 21:18 Condition: STABLE - POA Present On Arrival: None - Clinical Impression Clinical Impression: Abdominal pain, Abnormal abdominal CT scan, Vomiting - Scribe Statement The provider has reviewed the documentation as recorded by the Scribe (Agustina Smith) All medical record entries made by the Scribe were at my direction and personally dictated by me. I have reviewed the chart and agree that the record accurately reflects my personal performance of the history, physical exam, medical decision making, and the department course for this patient. I have also personally directed, reviewed, and agree with the discharge instructions and disposition. Decision To Admit - Pt Status Changed To: Hospital Disposition Of: Observation - . Bed Request Type: Regular Admitting Physician: Russell Fairbanks Patient Diagnosis: Abdominal pain, Abnormal abdominal CT scan, Vomiting
[2017-04-17] MEDS ORDERED: Lactated Ringer's 1,000 ML IV ONE (16:51)
[2017-04-17] MEDS ORDERED: Iohexol 240 (50 ml) ONE (16:55)
[2017-04-17 16:56] LABS: BASO % 0.4 % (0.0-2.0); EOS # 0.2 K/uL (0.0-0.7); EOS % 2.5 % (0.0-4.0); LYMPH # 1.3 K/uL (1.0-4.3); LYMPH % 16.6 % (20.0-40.0); MEAN CELL VOLUME 73.4 fL (80.0-94.0); MEAN CORPUSCULAR HEMOGLOBIN 23.8 pg (27.0-31.0); MEAN CORPUSCULAR HGB CONC 32.4 g/dL (33.0-37.0); MEAN PLATELET VOLUME 8.7 fL (7.2-11.7); MONO # 0.7 K/uL (0.0-0.8); MONO % 9.3 % (0.0-10.0); NRBC % 0.1 % (0.0-2.0); RED CELL DISTRIBUTION WIDTH 18.8 % (11.5-14.5); WHITE BLOOD COUNT 7.6 K/uL (4.8-10.8)
[2017-04-17 17:07] LABS: ALB/GLOB RATIO 1.3 (1.0-2.1); ALKALINE PHOSPHATASE 89 U/L (38-126); ALT/SGPT 42 U/L (21-72); AST/SGOT 31 U/L (17-59); BILIRUBIN,TOTAL 0.8 mg/dL (0.2-1.3); BLOOD UREA NITROGEN 12 mg/dL (9-20); CALCIUM 8.9 mg/dl (8.6-10.4); CARBON DIOXIDE 23 mmol/L (22-30); CHLORIDE 100 mmol/L (98-107); GFR AFRICAN-AMERICAN > 60; GLUCOSE,RANDOM 109 mg/dL (75-110); POTASSIUM 3.8 mmol/L (3.6-5.2); SODIUM 136 mmol/L (132-148); TOTAL PROTEIN 8.2 g/dL (6.3-8.3)
[2017-04-17 17:09] LABS: RBC URINE 2 /hpf (0-3); URINE BILIRUBIN NEGATIVE (NEGATIVE); URINE COLOR Yellow (YELLOW); URINE GLUCOSE (UA) NORMAL (Normal); URINE KETONE NEGATIVE (NEGATIVE); URINE LEUKOCYTE ESTERASE NEG Leu/uL (Negative); URINE PROTEIN 1+ mg/dL (NEGATIVE); URINE UROBILINOGEN NORMAL mg/dL (0.2-1.0); WBC URINE < 1 /hpf (0-5)
[2017-04-17 17:10] LABS: URINE BLOOD TRACE (NEGATIVE)
--- NOTE | 2017-04-17 17:37 | RAD ---
PROCEDURE: CHEST RADIOGRAPH, 1 VIEW HISTORY: abd pain COMPARISON: Comparison is made to 02/18/2016 FINDINGS: LUNGS: No evidence of acute pulmonary disease. PLEURA: No pneumothorax or pleural fluid seen. CARDIOVASCULAR: Normal. OSSEOUS STRUCTURES: No significant abnormalities. VISUALIZED UPPER ABDOMEN: Possible retrocardiac hiatus hernia. OTHER FINDINGS: None. IMPRESSION: No evidence of acute pulmonary disease.
[2017-04-17] MEDS ORDERED: Iodixanol 320 MG/ML 100 ML BOTTLE IV ONE (18:16)
[2017-04-17] MEDS ORDERED: Morphine 4 MG/ML VIAL ONE (19:08)
--- NOTE | 2017-04-17 21:09 | CT ---
EXAM: CT Abdomen and Pelvis With Intravenous Contrast CLINICAL HISTORY: 81 years old, male; Pain; Abdominal pain; Generalized; Additional info: Abd pain TECHNIQUE: Axial computed tomography images of the abdomen and pelvis with intravenous contrast. All CT scans at this facility use one or more dose reduction techniques, viz.: automated exposure control; ma/kV adjustment per patient size (including targeted exams where dose is matched to indication; i.e. head); or iterative reconstruction technique. Coronal and sagittal reformatted images were created and reviewed. CONTRAST: 100 mL of VISIPAQUE 320 administered intravenously. COMPARISON: No relevant prior studies available. FINDINGS: Lower thorax: Mild atelectasis/scarring. 0.3 cm subpleural nodule vs focal scarring RIGHT middle lobe. Coronary artery calcifications. Moderate-sized hiatal hernia. ABDOMEN: Liver: Unremarkable. No mass. Gallbladder and bile ducts: Calcified gallstones. No ductal dilation. Pancreas: No ductal dilation. No mass. Spleen: No splenomegaly. Adrenals: No mass. Kidneys and ureters: Few probable renal cysts. No hydronephrosis. Stomach and bowel: Postsurgical changes of sigmoid colon. [id number] stool within nondilated colon proximal to anastomosis. Collapse of sigmoid colon distal to anastomosis. Few scattered diverticula within colon. No associated inflammatory stranding. No definite mural thickening. No obstruction. Appendix: Appendectomy. PELVIS: Bladder: Unremarkable. Reproductive: Unremarkable as visualized. ABDOMEN and PELVIS: Intraperitoneal space: No significant fluid collection. No free air. Bones/joints: Degenerative changes of spine. No acute fracture. Soft tissues: Probable scarring midline anterior abdominal wall. Postsurgical changes of RIGHT anterior abdominal wall. Vasculature: Moderate atherosclerotic disease. No aneurysm. Lymph nodes: No pathologically enlarged lymph nodes. IMPRESSION: 1. Diverticulosis without CT evidence of diverticulitis. 2. Postsurgical changes of sigmoid colon with collapsed bowel distal to anastomosis. Stricture not entirely excluded. Clinical correlation is needed. 3. Cholelithiasis. 4. Incidental/non-acute findings are described above.
[2017-04-18] MEDS: Dextrose 5%/0.9% NS 1,000 ML IV SCH ×2 (02:27→15:19)
--- NOTE | 2017-04-18 02:50 | CP.PCM.CON ---
History of Present Illness - History of Present Illness History of Present Illness: General Surgery Consult Note for Dr. 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 General surgery consulted for suspected SBO based on CT findings. Patient states he has had this pain in the past where he was diagnosed with SBO. He states pain occurred suddenly. He also reported multiple episodes of nonbloody, nonbilious vomiting. Patient reports that symptoms resolved when he arrived at the hospital. He rated pain as moderate. He described the pain as constant as sharp located in the epigastric region. He is currently denying pain and other symptoms. Denies alleviating and exacerbating factors. Patient is having flatus. No other complaints at this time. PMD: Dr. Fairbanks PMH: Smal bowel CA, Asthma, HTN, Hypercholesterolemia Meds: as per EMR Allergy: Diphenhydramine PSH: Appendectomy, Endoscopy, Hernia Repair, small bowel resection FH: unknown Social: denies tobacco/EtOH/illicit drug use Review of Systems - Constitutional Constitutional: absent: Chills, Fever - EENT Eyes: absent: Change in Vision, Discharge, Requires Corrective Lenses Ears: absent: Ear Discharge, Tinnitus, Dizziness Nose/Mouth/Throat: absent: Nasal Discharge, Sore Throat, Neck Mass - Cardiovascular Cardiovascular: absent: Chest Pain, Chest Pain at Rest, Chest Pain with Activity , Diaphoresis, Dyspnea, Dyspnea on Exertion - Respiratory Respiratory: absent: Cough, Dyspnea, Hemoptysis, Wheezing - Gastrointestinal Gastrointestinal: Abdominal Pain, Nausea, Vomiting. absent: Diarrhea - Genitourinary Genitourinary: absent: Change in Urinary Stream, Difficulty Urinating, Dysuria - Musculoskeletal Musculoskeletal: absent: Back Pain, Numbness, Tingling - Integumentary Integumentary: absent: Changing Lesions, New Lesions - Neurological Neurological: absent: Numbness, Tingling, Vertigo, Weakness - Psychiatric Psychiatric: absent: Anxiety, Depression, Homicidal Ideation, Suicidal Ideation - Endocrine Endocrine: absent: Fatigue, Palpitations - Hematologic/Lymphatic Hematologic: absent: Easy Bleeding, Easy Bruising, Lymphadenopathy Past Patient History - Infectious Disease Hx of Infectious Diseases: None - Past Medical History & Family History Past Medical History?: Yes - Past Social History Smoking Status: Never Smoked - CARDIAC Hx Hypercholesterolemia: Yes Hx Hypertension: Yes - PULMONARY Hx Asthma: Yes Hx Bronchitis: Yes Hx Pneumonia: Yes (2010) - NEUROLOGICAL Hx Neurological Disorder: No - HEENT Hx HEENT Problems: Yes Other/Comment: Difficulty hearing of R Ear - RENAL Hx Chronic Kidney Disease: No - ENDOCRINE/METABOLIC Hx Endocrine Disorders: No - HEMATOLOGICAL/ONCOLOGICAL Hx Blood Disorders: Yes Hx Cancer: Yes (colorectal) Hx Chemotherapy: Yes (2002) - INTEGUMENTARY Hx Dermatological Problems: No - MUSCULOSKELETAL/RHEUMATOLOGICAL Hx Musculoskeletal Disorders: No Hx Falls: No - GASTROINTESTINAL Hx Gastrointestinal Disorders: Yes Other/Comment: COLON CANCER - GENITOURINARY/GYNECOLOGICAL Hx Genitourinary Disorders: No - PSYCHIATRIC Hx Substance Use: No - SURGICAL HISTORY Hx Appendectomy: Yes - ANESTHESIA Hx Anesthesia: Yes Hx Anesthesia Reactions: No Hx Malignant Hyperthermia: No Meds Allergies/Adverse Reactions: Allergies Allergy/AdvReac Type Severity Reaction Status Date / Time diphenhydramine HCl AdvReac Verified 04/17/17 16:11 [From Ruben] - Medications Medications: Current Medications Amlodipine Besylate (Norvasc) 5 mg PO DAILY [facility] Aspirin (Ecotrin) 81 mg PO DAILY [facility] Home Med (Fenofibrate) 200 mg PO DAILY [facility] Dextrose/Sodium Chloride (Dextrose 5%/0.9% Ns 1000 Ml) 1,000 mls @ 100 mls/hr IV .Q10H [facility] Last Admin: 04/18/17 02:27 Dose: 100 mls/hr Ondansetron HCl (Zofran Tab) 4 mg PO Q8H PRN PRN Reason: Nausea/Vomiting Pantoprazole Sodium (Protonix Ec Tab) 40 mg PO DAILY [facility] Rosuvastatin Calcium (Crestor) 10 mg PO DAILY [facility] Physical Exam - Constitutional Appears: Non-toxic, No Acute Distress - Head Exam Head Exam: ATRAUMATIC, NORMOCEPHALIC - Eye Exam Eye Exam: Normal appearance - ENT Exam ENT Exam: Mucous Membranes Moist - Respiratory Exam Respiratory Exam: NORMAL BREATHING PATTERN - Cardiovascular Exam Cardiovascular Exam: REGULAR RHYTHM - GI/Abdominal Exam GI & Abdominal Exam: Normal Bowel Sounds, Soft. absent: Distended, Firm, Guarding, Rebound, Rigid, Tenderness Additional comments: midline scar from bowel rection laparoscopic scars from appendectomy - Extremities Exam Extremities exam: Negative for: calf tenderness - Back Exam Back exam: absent: CVA tenderness (L), CVA tenderness (R) - Neurological Exam Neurological exam: Alert, CN II-XII Intact, Oriented x3 - Psychiatric Exam Psychiatric exam: Normal Affect, Normal Mood - Skin Skin Exam: Dry, Intact, Normal Color, Warm Results - Vital Signs Recent Vital Signs: Last Vital Signs Temp 97.7 F 04/18/17 00:25 Pulse 90 04/18/17 00:25 Resp 18 04/18/17 00:25 BP 158/75 H 04/18/17 00:25 Pulse Ox 98 04/18/17 00:25 - Labs Result Diagrams: 04/17/17 16:53 04/17/17 16:50 Labs: Laboratory Results - last 24 hr 04/17/17 04/17/17 04/17/17 16:50 16:50 16:53 WBC 7.6 RBC 4.91 Hgb 11.7 L Hct 36.0 MCV 73.4 L MCH 23.8 L MCHC 32.4 L RDW 18.8 H Plt Count 237 MPV 8.7 Neut % (Auto) 71.2 Lymph % (Auto) 16.6 L [place] % (Auto) 9.3 Eos % (Auto) 2.5 Baso % (Auto) 0.4 Neut # 5.4 Lymph # 1.3 [place] # 0.7 Eos # 0.2 Baso # 0.0 Sodium 136 Potassium 3.8 Chloride 100 Carbon Dioxide 23 Anion Gap 16 BUN 12 Creatinine 1.0 Est GFR ( Amer) > 60 Est GFR (Non-Af Amer) > 60 Random Glucose 109 Calcium 8.9 Total Bilirubin 0.8 AST 31 ALT 42 Alkaline Phosphatase 89 Troponin I < 0.0120 Total Protein 8.2 Albumin 4.6 Globulin 3.6 Albumin/Globulin Ratio 1.3 Lipase 84 Urine Color Yellow Urine Clarity Clear Urine pH 6.0 Ur Specific [place] 1.013 Urine Protein 1+ H Urine Glucose (UA) Normal Urine Ketones Negative Urine Blood Trace H Urine Nitrate Negative Urine Bilirubin Negative Urine Urobilinogen Normal Ur Leukocyte Esterase Neg Urine WBC (Auto) < 1 Urine RBC (Auto) 2 Ur Squamous Epith Cells < 1 Assessment & Plan - Assessment and Plan (Free Text) Plan: 81 M with abdominal pain and nausea/vomiting; CT findings of diverticulosis and collapsed small bowel at presumed anastomosis -Patient asymptomatic currently and passing flatus -ADAT -Iv fluids -Serial abdominal exams -Management as per primary -Will follow -Discussed with Dr. Liz Renee PGY1
[2017-04-18] MEDS: Pantoprazole 40 mg EC Tab PO SCH (09:44)
[2017-04-18] MEDS: Enoxaparin 40 mg Syringe SC SCH (09:44)
[2017-04-18 11:20] LABS: HEMATOCRIT 35.3 % (35.0-51.0); MEAN CELL VOLUME 73.3 fL (80.0-94.0); MEAN CORPUSCULAR HEMOGLOBIN 23.5 pg (27.0-31.0); RED CELL DISTRIBUTION WIDTH 18.1 % (11.5-14.5); WHITE BLOOD COUNT 17.6 K/uL (4.8-10.8)
[2017-04-18 11:30] LABS: INR 1.3
--- NOTE | 2017-04-18 11:38 | CP.PCM.PN ---
Subjective - Date & Time of Evaluation Date of Evaluation: 04/18/17 Time of Evaluation: 11:37 - Subjective Subjective: gb ct scan shows stones this might be cause of pain Objective - Vital Signs/Intake and Output Vital Signs (last 24 hours): Temp Pulse Resp BP Pulse Ox 99.1 F 87 20 150/68 97 04/18/17 09:31 04/18/17 09:31 04/18/17 09:31 04/18/17 09:31 04/18/17 09:31 Intake and Output: 04/18/17 04/18/17 06:59 18:59 Intake Total 500 Output Total 1100 Balance -600 - Medications Medications: Current Medications Amlodipine Besylate (Norvasc) 5 mg PO DAILY [facility] Last Admin: 04/18/17 09:44 Dose: 5 mg Aspirin (Ecotrin) 81 mg PO DAILY [facility] Last Admin: 04/18/17 09:44 Dose: 81 mg Enoxaparin Sodium (Lovenox) 40 mg SC DAILY [facility] Last Admin: 04/18/17 09:44 Dose: 40 mg Fenofibrate (Tricor) 145 mg PO DAILY [facility] Last Admin: 04/18/17 09:45 Dose: 145 mg Dextrose/Sodium Chloride (Dextrose 5%/0.9% Ns 1000 Ml) 1,000 mls @ 100 mls/hr IV .Q10H [facility] Last Admin: 04/18/17 02:27 Dose: 100 mls/hr Ondansetron HCl (Zofran Tab) 4 mg PO Q8H PRN PRN Reason: Nausea/Vomiting Pantoprazole Sodium (Protonix Ec Tab) 40 mg PO DAILY [facility] Last Admin: 04/18/17 09:44 Dose: 40 mg Rosuvastatin Calcium (Crestor) 10 mg PO DAILY [facility] - Labs Labs: 04/18/17 11:15 04/17/17 16:50
[2017-04-18 11:56] LABS: BLOOD UREA NITROGEN 11 mg/dL (9-20); CALCIUM 8.3 mg/dl (8.6-10.4); CARBON DIOXIDE 24 mmol/L (22-30); CHLORIDE 98 mmol/L (98-107); GFR AFRICAN-AMERICAN > 60; GLUCOSE,RANDOM 104 mg/dL (75-110); POTASSIUM 3.7 mmol/L (3.6-5.2); SODIUM 132 mmol/L (132-148)
--- NOTE | 2017-04-18 17:03 | CP.PCM.PN ---
Subjective - Date & Time of Evaluation Date of Evaluation: 04/18/17 Time of Evaluation: 17:01 - Subjective Subjective: DISCUSSED PT CASE W DR. GUILLEN VIA TELEPHONE. PT SEEN BY SURGICAL TEAM. WILL ORDER FULL LIQUIDS PER DR. GUILLEN. ALSO NOTIFIED DR. GUILLEN OF WBC 17.6 FROM 7.6 YESTERDAY (SEE OFFICIAL LAB RESULTS). DR. GUILLEN WAS NEVER INFORMED OF LAB RESULTS. ONE DOSE OF BOTH CIPRO 400 MG IV AND FLAGYL 500 MG IV ORDERED PER MD REQUEST. STAT CBC AND BLOOD CULTURES ORDERED AND DR. GUILLEN TO BE NOTIFIED THIS EVENING OF CBC RESULTS. DISCUSSED THIS WITH PREVIOUS RN DANYELL AND ONCOMING RN KEYSHA. NO FURTHER ORDERS AT THIS TIME. Objective - Vital Signs/Intake and Output Vital Signs (last 24 hours): Temp Pulse Resp BP Pulse Ox 99.1 F 87 20 150/68 97 04/18/17 09:31 04/18/17 09:31 04/18/17 09:31 04/18/17 09:31 04/18/17 09:31 Intake and Output: 04/18/17 04/18/17 06:59 18:59 Intake Total 500 800 Output Total 1100 0 Balance -600 800 - Medications Medications: Current Medications Amlodipine Besylate (Norvasc) 5 mg PO DAILY [facility] Last Admin: 04/18/17 09:44 Dose: 5 mg Aspirin (Ecotrin) 81 mg PO DAILY [facility] Last Admin: 04/18/17 09:44 Dose: 81 mg Enoxaparin Sodium (Lovenox) 40 mg SC DAILY [facility] Last Admin: 04/18/17 09:44 Dose: 40 mg Fenofibrate (Tricor) 145 mg PO DAILY [facility] Last Admin: 04/18/17 09:45 Dose: 145 mg Dextrose/Sodium Chloride (Dextrose 5%/0.9% Ns 1000 Ml) 1,000 mls @ 100 mls/hr IV .Q10H [facility] Last Admin: 04/18/17 15:19 Dose: Not Given Ciprofloxacin (Cipro 400mg/200ml Dsw) 400 mg in 200 mls @ 133 mls/hr IVPB STAT STA Stop: 04/18/17 18:23 Metronidazole (Flagyl) 500 mg in 100 mls @ 100 mls/hr IVPB STAT STA Stop: 04/18/17 17:52 Ondansetron HCl (Zofran Tab) 4 mg PO Q8H PRN PRN Reason: Nausea/Vomiting Pantoprazole Sodium (Protonix Ec Tab) 40 mg PO DAILY [facility] Last Admin: 04/18/17 09:44 Dose: 40 mg Rosuvastatin Calcium (Crestor) 10 mg PO DAILY [facility] - Labs Labs: 04/18/17 11:15 04/18/17 11:15 PT 14.4 SECONDS (9.7-12.2) H 04/18/17 11:15 INR 1.3 04/18/17 11:15 APTT 32 SECONDS (21-34) 04/18/17 11:15
[2017-04-18] MEDS ORDERED: Ciprofloxacin 400mg/200ml D5W 400 MG/200 ML BAG IVPB STA (17:25)
[2017-04-18] MEDS ORDERED: metroNIDAZOLE IV 500 mg/100 ml 500 MG/100 ML BAG IVPB STA (17:26)
[2017-04-18 18:10] LABS: BASO # 0.1 K/uL (0.0-0.2); BASO % 0.5 % (0.0-2.0); EOS % 0.1 % (0.0-4.0); HEMATOCRIT 34.9 % (35.0-51.0); LYMPH % 5.5 % (20.0-40.0); MEAN CORPUSCULAR HEMOGLOBIN 23.3 pg (27.0-31.0); MEAN CORPUSCULAR HGB CONC 31.9 g/dL (33.0-37.0); MONO # 1.8 K/uL (0.0-0.8); MONO % 9.6 % (0.0-10.0); PLATELET COUNT 211 K/uL (130-400); RED CELL DISTRIBUTION WIDTH 18.5 % (11.5-14.5); WHITE BLOOD COUNT 18.5 K/uL (4.8-10.8)
[2017-04-18 18:39] LABS: NEUTROPHIL 83 % (50-75); TOTAL CELLS COUNTED 100
[2017-04-19] MEDS: metroNIDAZOLE IV 500 mg/100 ml 500 MG/100 ML BAG IVPB SCH ×3 (00:22→17:18)
[2017-04-19] MEDS ORDERED: HYDROmorphone 0.5 mg/0.5 ml ISec IVP STA (02:31)
[2017-04-19] MEDS: Ciprofloxacin 400mg/200ml D5W 400 MG/200 ML BAG IVPB SCH ×2 (04:24→17:18)
[2017-04-19] MEDS: Dextrose 5%/0.9% NS 1,000 ML IV SCH ×2 (04:25→10:27)
--- NOTE | 2017-04-19 09:59 | CP.PCM.PN ---
Subjective - Date & Time of Evaluation Date of Evaluation: 04/19/17 Time of Evaluation: 07:15 - Subjective Subjective: General Surgery- Dr. Hill Patient seen and examined at bedside this AM. No acute events overnight. patient abdominal pain localized to RUQ. pain managable w/ current pain regiment. Denies current fevers, chills, chest pain, SOB, N/V/D Objective - Vital Signs/Intake and Output Vital Signs (last 24 hours): Temp Pulse Resp BP Pulse Ox 99.5 F 90 20 147/69 96 04/19/17 08:54 04/19/17 08:54 04/19/17 08:54 04/19/17 08:54 04/19/17 08:54 Intake and Output: 04/19/17 04/19/17 06:59 18:59 Intake Total 800 Output Total 800 Balance 0 - Medications Medications: Current Medications Acetaminophen (Tylenol 325mg Tab) 650 mg PO Q6 PRN PRN Reason: Temperature Last Admin: 04/18/17 17:56 Dose: 650 mg Amlodipine Besylate (Norvasc) 5 mg PO DAILY [facility] Last Admin: 04/18/17 09:44 Dose: 5 mg Aspirin (Ecotrin) 81 mg PO DAILY [facility] Last Admin: 04/18/17 09:44 Dose: 81 mg Enoxaparin Sodium (Lovenox) 40 mg SC DAILY [facility] Last Admin: 04/18/17 09:44 Dose: 40 mg Fenofibrate (Tricor) 145 mg PO DAILY [facility] Last Admin: 04/18/17 09:45 Dose: 145 mg Dextrose/Sodium Chloride (Dextrose 5%/0.9% Ns 1000 Ml) 1,000 mls @ 100 mls/hr IV .Q10H [facility] Last Admin: 04/19/17 04:25 Dose: 100 mls/hr Ciprofloxacin (Cipro 400mg/200ml Dsw) 400 mg in 200 mls @ 133 mls/hr IVPB Q12H [facility] Last Admin: 04/19/17 04:24 Dose: 133 mls/hr Metronidazole (Flagyl) 500 mg in 100 mls @ 100 mls/hr IVPB Q8H [facility] Last Admin: 04/19/17 08:09 Dose: 100 mls/hr Ondansetron HCl (Zofran Tab) 4 mg PO Q8H PRN PRN Reason: Nausea/Vomiting Pantoprazole Sodium (Protonix Ec Tab) 40 mg PO DAILY [facility] Last Admin: 04/18/17 09:44 Dose: 40 mg Rosuvastatin Calcium (Crestor) 10 mg PO DAILY [facility] Last Admin: 04/18/17 21:29 Dose: 10 mg - Labs Labs: 04/18/17 18:06 04/18/17 11:15 PT 14.4 SECONDS (9.7-12.2) H 04/18/17 11:15 INR 1.3 04/18/17 11:15 APTT 32 SECONDS (21-34) 04/18/17 11:15 - Constitutional Appears: Non-toxic, No Acute Distress - Head Exam Head Exam: ATRAUMATIC - Eye Exam Eye Exam: EOMI. absent: Scleral icterus - ENT Exam ENT Exam: Mucous Membranes Moist - Respiratory Exam Respiratory Exam: absent: Accessory Muscle Use, Respiratory Distress - Cardiovascular Exam Cardiovascular Exam: +S1, +S2 - GI/Abdominal Exam GI & Abdominal Exam: Distended, Soft, Tenderness. absent: Firm, Guarding, Rigid Additional comments: tender to palpation in RUQ - Neurological Exam Neurological Exam: Alert, Awake, Oriented x3 - Psychiatric Exam Psychiatric exam: Normal Affect - Skin Skin Exam: Intact, Warm Assessment and Plan - Assessment and Plan (Free Text) Assessment: 81M w/ RUQ pain, cholelithiasis vs acute cholecystitis Plan: - f/u GB US and HIDA scan - pain control and anti-emetic PRN - IVF and Abx - medical management per primary team - further recs per Dr. Liz Ortiz PGY1
[2017-04-19] MEDS: Enoxaparin 40 mg Syringe SC SCH (10:36)
[2017-04-19] MEDS: Pantoprazole 40 mg EC Tab PO SCH (10:36)
--- NOTE | 2017-04-19 13:58 | US ---
HISTORY: Abdominal pain r/o cholecystitis COMPARISON: None. TECHNIQUE: Sonographic evaluation of the right upper quadrant of the abdomen. Study is somewhat limited due to body habitus and bowel gas. FINDINGS: LIVER: Measures approximately 14 cm in length. Liver demonstrates smooth contour though somewhat decreased echotexture nonspecific. Echogenicity of the liver parenchyma. No mass. No intrahepatic bile duct dilatation. GALLBLADDER: The gallbladder is physiologically distended. Intraluminal gallbladder calculi. Gallbladder wall is mildly thickened and edematous in appearance measuring approximately 6 mm. No pericholecystic fluid collections. Technologist indicates positive sonographic Torrez sign elicited during this procedure. COMMON BILE DUCT: Mildly dilated measuring approximately 7.2 mm. Mm. No stones. No dilatation. PANCREAS: Unremarkable as visualized. No mass. No ductal dilatation. RIGHT KIDNEY: Measures approximately 9.9 x 5.8 x 4.7 cm in length. Normal echogenicity. No calculus, mass, or hydronephrosis. AORTA: Poorly visualized IVC: Not visualized OTHER FINDINGS: None . IMPRESSION: Cholelithiasis with mild gallbladder wall edema/thickening and positive sonographic Torrez sign.
[2017-04-20] MEDS: metroNIDAZOLE IV 500 mg/100 ml 500 MG/100 ML BAG IVPB SCH ×3 (00:01→17:40)
--- NOTE | 2017-04-20 00:24 | PN ---
DAILY PROGRESS NOTE DATE: 04/19/2017 SUBJECTIVE: The patient is seen today 04/19/2017. He stated that he is not nauseous and he was given liquid diet, without any nausea or vomiting. PHYSICAL EXAMINATION: VITAL SIGNS: Blood pressure is 146/72, temperature 99.5, respiratory rate 20 and pulse 99. HEENT: Pupils equal, reactive to light. Normal-appearing mucosa of the conjunctivae, oropharyngeal and nasal membrane mucosa. NECK: Supple. No JVD. No carotid bruit. No lymph node. No thyromegaly. CHEST AND LUNGS: Bilateral symmetrical expansion. Good air exchange. No rales, no rhonchi. CARDIOVASCULAR SYSTEM: PMI not localized. S1 and S2. No additional sounds. ABDOMEN: Slightly distended, but good bowel sounds. No tenderness. No organomegaly. No masses. EXTREMITIES: No cyanosis, no clubbing. No edema. CENTRAL NERVOUS SYSTEMS: Alert, awake, oriented x2. No neurological deficit could be appreciated. ASSESSMENT: 1. Possible small bowel obstruction with leukocytosis. 2. Hypertension. 3. Hypercholesterolemia. PLAN: Will follow surgical recommendations. Advance diet as tolerated. Continue current IV antibiotics and repeat blood work in the morning. Russell Fairbanks MD
[2017-04-20] MEDS: Ciprofloxacin 400mg/200ml D5W 400 MG/200 ML BAG IVPB SCH ×2 (04:57→17:40)
[2017-04-20] MEDS: Dextrose 5%/0.9% NS 1,000 ML IV SCH ×3 (04:58→21:01)
--- NOTE | 2017-04-20 06:49 | HP ---
LATE ENTRY FOR HISTORY AND PHYSICAL HISTORY OF PRESENT ILLNESS: The patient was seen on 04/18/2017. He is an 81-year-old male with history of multiple medical problems including multiple admissions for small bowel obstruction. Patient presented to the emergency room with symptoms of abdominal pain and vomiting. Patient was evaluated in the emergency room and he was found to have; 1. Diverticulosis without CT evidence of diverticulitis, post-surgical changes of sigmoid colon with collapsed bowel, distal to the anastomosis; stricture not entirely excluded. 2. Cholelithiasis. Patient was complaining of these symptoms for 1 day. Patient was admitted for further management after he was started on IV fluid and was kept n.p.o. Surgical consult also was called by emergency room doctor. REVIEW OF SYSTEMS: Other review of systems is negative. ALLERGIES: NO KNOWN ALLERGIES. HOME MEDICATIONS: Norvasc 5 mg daily, Crestor 10 mg daily, Protonix 40 mg daily, fenofibrate 200 mg daily, aspirin 81 mg daily. SOCIAL HISTORY: No history of smoking, EtOH or substance abuse. FAMILY HISTORY: Noncontributory. ASSESSMENT: 1. Hypercholesterolemia. 2. Gastritis/gastroesophageal reflux disease. 3. Hypertension. 4. Status post partial colectomy. 5. Small bowel obstruction symptoms that have been happened intermittently. PLAN: Follow surgical recommendations. We will give the patient Cipro and Flagyl IV due to the leukocytosis. We will repeat blood work. Resume patient's home medications. Russell Fairbanks MD
[2017-04-20 09:12] LABS: BASO % 0.3 % (0.0-2.0); EOS % 0.1 % (0.0-4.0); HEMATOCRIT 31.3 % (35.0-51.0); LYMPH # 0.8 K/uL (1.0-4.3); LYMPH % 5.3 % (20.0-40.0); MEAN CELL VOLUME 72.8 fL (80.0-94.0); MEAN CORPUSCULAR HEMOGLOBIN 23.6 pg (27.0-31.0); MEAN CORPUSCULAR HGB CONC 32.5 g/dL (33.0-37.0); MONO # 1.2 K/uL (0.0-0.8); MONO % 7.6 % (0.0-10.0); PLATELET COUNT 185 K/uL (130-400); RED CELL DISTRIBUTION WIDTH 18.7 % (11.5-14.5); WHITE BLOOD COUNT 16.1 K/uL (4.8-10.8)
[2017-04-20 09:13] LABS: ALB/GLOB RATIO 1.1 (1.0-2.1); ALKALINE PHOSPHATASE 79 U/L (38-126); ALT/SGPT 42 U/L (21-72); AST/SGOT 31 U/L (17-59); BILIRUBIN,TOTAL 1.2 mg/dL (0.2-1.3); BLOOD UREA NITROGEN 8 mg/dL (9-20); CALCIUM 7.9 mg/dl (8.6-10.4); CARBON DIOXIDE 20 mmol/L (22-30); CHLORIDE 104 mmol/L (98-107); GFR AFRICAN-AMERICAN > 60; GLUCOSE,RANDOM 100 mg/dL (75-110); POTASSIUM 3.6 mmol/L (3.6-5.2); SODIUM 134 mmol/L (132-148); TOTAL PROTEIN 6.2 g/dL (6.3-8.3)
[2017-04-20] MEDS: Pantoprazole 40 mg EC Tab PO SCH (09:24)
[2017-04-20] MEDS: Enoxaparin 40 mg Syringe SC SCH (09:24)
[2017-04-20 10:58] LABS: NEUTROPHIL 84 % (50-75); TOTAL CELLS COUNTED 100
--- NOTE | 2017-04-20 12:05 | CP.PCM.PN ---
Subjective - Date & Time of Evaluation Date of Evaluation: 04/20/17 Time of Evaluation: 06:15 - Subjective Subjective: General Surgery- Dr. Hill Patient seen and examined at bedside this AM. NAEO. tolerating diet, passing flatus. pain localized in RUQ well controlled on current pain regiment. Denies F /C CP/SOB N/V/D Objective - Vital Signs/Intake and Output Vital Signs (last 24 hours): Temp Pulse Resp BP Pulse Ox 98.7 F 91 H 20 145/71 97 04/20/17 09:57 04/20/17 09:57 04/20/17 09:57 04/20/17 09:57 04/20/17 09:57 Intake and Output: 04/20/17 04/20/17 06:59 18:59 Intake Total 1000 Output Total 150 Balance 850 - Medications Medications: Current Medications Acetaminophen (Tylenol 325mg Tab) 650 mg PO Q6 PRN PRN Reason: Temperature Last Admin: 04/19/17 18:51 Dose: 650 mg Amlodipine Besylate (Norvasc) 5 mg PO DAILY [facility] Last Admin: 04/20/17 09:24 Dose: 5 mg Aspirin (Ecotrin) 81 mg PO DAILY [facility] Last Admin: 04/20/17 09:24 Dose: 81 mg Docusate Sodium (Colace) 100 mg PO BID [facility] Last Admin: 04/20/17 09:24 Dose: 100 mg Enoxaparin Sodium (Lovenox) 40 mg SC DAILY [facility] Last Admin: 04/20/17 09:24 Dose: 40 mg Fenofibrate (Tricor) 145 mg PO DAILY [facility] Last Admin: 04/20/17 09:24 Dose: 145 mg Dextrose/Sodium Chloride (Dextrose 5%/0.9% Ns 1000 Ml) 1,000 mls @ 100 mls/hr IV .Q10H [facility] Last Admin: 04/20/17 04:58 Dose: 100 mls/hr Ciprofloxacin (Cipro 400mg/200ml Dsw) 400 mg in 200 mls @ 133 mls/hr IVPB Q12H [facility] Last Admin: 04/20/17 04:57 Dose: 133 mls/hr Metronidazole (Flagyl) 500 mg in 100 mls @ 100 mls/hr IVPB Q8H [facility] Last Admin: 04/20/17 08:39 Dose: 100 mls/hr Ondansetron HCl (Zofran Tab) 4 mg PO Q8H PRN PRN Reason: Nausea/Vomiting Last Admin: 04/19/17 17:18 Dose: 4 mg Pantoprazole Sodium (Protonix Ec Tab) 40 mg PO DAILY [facility] Last Admin: 04/20/17 09:24 Dose: 40 mg Rosuvastatin Calcium (Crestor) 10 mg PO HS [facility] Last Admin: 04/19/17 21:44 Dose: 10 mg - Labs Labs: 04/20/17 08:49 04/20/17 08:49 PT 14.4 SECONDS (9.7-12.2) H 04/18/17 11:15 INR 1.3 04/18/17 11:15 APTT 32 SECONDS (21-34) 04/18/17 11:15 - Constitutional Appears: Non-toxic, No Acute Distress - Head Exam Head Exam: ATRAUMATIC - Eye Exam Eye Exam: EOMI - ENT Exam ENT Exam: Mucous Membranes Moist - Respiratory Exam Respiratory Exam: NORMAL BREATHING PATTERN. absent: Accessory Muscle Use, Respiratory Distress - Cardiovascular Exam Cardiovascular Exam: +S1, +S2. absent: Bradycardia, Tachycardia - GI/Abdominal Exam GI & Abdominal Exam: Soft, Tenderness. absent: Distended, Firm, Guarding, Rigid , Rebound Additional comments: tender to palpation in right upper quadrant - Extremities Exam Extremities Exam: Normal Inspection. absent: Calf Tenderness - Neurological Exam Neurological Exam: Alert, Awake, Oriented x3 - Skin Skin Exam: Intact, Warm Assessment and Plan - Assessment and Plan (Free Text) Assessment: 81M RUQ pain; cholelithiasis vs cholecystitis Plan: - HIDA scan pending - continue CLD - will make NPO at midnight - anti-emetic and pain control PRN - IVR - GI/DVT ppx - d/w Dr. Liz Ortiz PGY1
--- NOTE | 2017-04-20 14:56 | CP.PCM.PN ---
Subjective - Date & Time of Evaluation Date of Evaluation: 04/20/17 Time of Evaluation: 14:55 - Subjective Subjective: awaiting hida scan Objective - Vital Signs/Intake and Output Vital Signs (last 24 hours): Temp Pulse Resp BP Pulse Ox 98.7 F 91 H 20 145/71 97 04/20/17 09:57 04/20/17 09:57 04/20/17 09:57 04/20/17 09:57 04/20/17 09:57 Intake and Output: 04/20/17 04/20/17 06:59 18:59 Intake Total 1000 1050 Output Total 150 600 Balance 850 450 - Medications Medications: Current Medications Acetaminophen (Tylenol 325mg Tab) 650 mg PO Q6 PRN PRN Reason: Temperature Last Admin: 04/19/17 18:51 Dose: 650 mg Amlodipine Besylate (Norvasc) 5 mg PO DAILY [facility] Last Admin: 04/20/17 09:24 Dose: 5 mg Aspirin (Ecotrin) 81 mg PO DAILY [facility] Last Admin: 04/20/17 09:24 Dose: 81 mg Docusate Sodium (Colace) 100 mg PO BID [facility] Last Admin: 04/20/17 09:24 Dose: 100 mg Enoxaparin Sodium (Lovenox) 40 mg SC DAILY [facility] Last Admin: 04/20/17 09:24 Dose: 40 mg Fenofibrate (Tricor) 145 mg PO DAILY [facility] Last Admin: 04/20/17 09:24 Dose: 145 mg Dextrose/Sodium Chloride (Dextrose 5%/0.9% Ns 1000 Ml) 1,000 mls @ 100 mls/hr IV .Q10H [facility] Last Admin: 04/20/17 14:47 Dose: Not Given Ciprofloxacin (Cipro 400mg/200ml Dsw) 400 mg in 200 mls @ 133 mls/hr IVPB Q12H [facility] Last Admin: 04/20/17 04:57 Dose: 133 mls/hr Metronidazole (Flagyl) 500 mg in 100 mls @ 100 mls/hr IVPB Q8H [facility] Last Admin: 04/20/17 08:39 Dose: 100 mls/hr Ondansetron HCl (Zofran Tab) 4 mg PO Q8H PRN PRN Reason: Nausea/Vomiting Last Admin: 04/19/17 17:18 Dose: 4 mg Pantoprazole Sodium (Protonix Ec Tab) 40 mg PO DAILY [facility] Last Admin: 04/20/17 09:24 Dose: 40 mg Rosuvastatin Calcium (Crestor) 10 mg PO HS [facility] Last Admin: 04/19/17 21:44 Dose: 10 mg - Labs Labs: 04/20/17 08:49 04/20/17 08:49 PT 14.4 SECONDS (9.7-12.2) H 04/18/17 11:15 INR 1.3 04/18/17 11:15 APTT 32 SECONDS (21-34) 04/18/17 11:15
[2017-04-21] MEDS: Dextrose 5%/0.9% NS 1,000 ML IV SCH
[2017-04-21] MEDS: metroNIDAZOLE IV 500 mg/100 ml 500 MG/100 ML BAG IVPB SCH ×3 (00:35→17:37)
[2017-04-21] MEDS: Ciprofloxacin 400mg/200ml D5W 400 MG/200 ML BAG IVPB SCH ×2 (04:45→17:38)
[2017-04-21] MEDS: Enoxaparin 40 mg Syringe SC SCH (10:49)
--- NOTE | 2017-04-21 12:06 | CP.PCM.PN ---
Subjective - Date & Time of Evaluation Date of Evaluation: 04/21/17 Time of Evaluation: 12:05 - Subjective Subjective: Surgery: Dr. Hill Pt seen and examined. Resting comfortably in bed. No complaints of pain. No N/ V. No F/C. Objective - Vital Signs/Intake and Output Vital Signs (last 24 hours): Temp Pulse Resp BP Pulse Ox 98.5 F 86 20 146/57 L 96 04/21/17 08:25 04/21/17 08:25 04/21/17 08:25 04/21/17 08:25 04/21/17 08:25 Intake and Output: 04/21/17 04/21/17 06:59 18:59 Intake Total 900 Output Total 850 40 Balance -850 860 - Medications Medications: Current Medications Acetaminophen (Tylenol 325mg Tab) 650 mg PO Q6 PRN PRN Reason: Temperature Last Admin: 04/19/17 18:51 Dose: 650 mg Amlodipine Besylate (Norvasc) 5 mg PO DAILY [facility] Last Admin: 04/20/17 09:24 Dose: 5 mg Aspirin (Ecotrin) 81 mg PO DAILY [facility] Last Admin: 04/20/17 09:24 Dose: 81 mg Docusate Sodium (Colace) 100 mg PO BID [facility] Last Admin: 04/21/17 10:56 Dose: Not Given Enoxaparin Sodium (Lovenox) 40 mg SC DAILY [facility] Last Admin: 04/21/17 10:49 Dose: 40 mg Fenofibrate (Tricor) 145 mg PO DAILY [facility] Last Admin: 04/20/17 09:24 Dose: 145 mg Ciprofloxacin (Cipro 400mg/200ml Dsw) 400 mg in 200 mls @ 133 mls/hr IVPB Q12H [facility] Last Admin: 04/21/17 04:45 Dose: 133 mls/hr Metronidazole (Flagyl) 500 mg in 100 mls @ 100 mls/hr IVPB Q8H [facility] Last Admin: 04/21/17 10:50 Dose: 100 mls/hr Ondansetron HCl (Zofran Tab) 4 mg PO Q8H PRN PRN Reason: Nausea/Vomiting Last Admin: 04/19/17 17:18 Dose: 4 mg Pantoprazole Sodium (Protonix Ec Tab) 40 mg PO DAILY [facility] Last Admin: 04/20/17 09:24 Dose: 40 mg Rosuvastatin Calcium (Crestor) 10 mg PO HS [facility] Last Admin: 04/20/17 22:03 Dose: 10 mg - Labs Labs: 04/20/17 08:49 04/20/17 08:49 PT 14.4 SECONDS (9.7-12.2) H 04/18/17 11:15 INR 1.3 04/18/17 11:15 APTT 32 SECONDS (21-34) 04/18/17 11:15 - Constitutional Appears: Non-toxic, No Acute Distress - Head Exam Head Exam: ATRAUMATIC, NORMOCEPHALIC - Eye Exam Eye Exam: EOMI - ENT Exam ENT Exam: Mucous Membranes Moist - Neck Exam Neck Exam: Full ROM - Respiratory Exam Respiratory Exam: NORMAL BREATHING PATTERN. absent: Accessory Muscle Use, Respiratory Distress - GI/Abdominal Exam GI & Abdominal Exam: Soft. absent: Distended, Firm, Guarding, Rigid, Tenderness , Rebound - Extremities Exam Extremities Exam: absent: Calf Tenderness, Pedal Edema - Neurological Exam Neurological Exam: Alert, Awake, Oriented x3 - Skin Skin Exam: Dry, Normal Color, Warm Assessment and Plan - Assessment and Plan (Free Text) Assessment: 81M w. cholecystitis -HIDA scan: official read pending, appears to be positive -c/w abx -c/w pain meds -will plan for OR tomorrow -NPO at midnight -d/w attending Zemaitis PGY3
[2017-04-21] MEDS: Pantoprazole 40 mg EC Tab PO SCH (12:31)
[2017-04-21] MEDS ORDERED: Dextrose 5%/0.9% NS 1,000 ML IV SCH (16:30)
--- NOTE | 2017-04-21 17:33 | NM ---
PROCEDURE: Nuclear Medicine Hepatobiliary Scan HISTORY: ABD pain w/ gallstones COMPARISON: No prior nuclear HIDA scan available. Correlation is made with an ultrasound 10/12/2016 as well as abdomen and pelvis CT with contrast 04/17/2017. TECHNIQUE: 5.1 mCi of technetium 99m Mebrofenin was administered intravenously. Planar images of the abdomen were obtained at 5 min intervals to 60 mins. Delayed images were also obtained. FINDINGS: LIVER: Timely and homogenous uptake. COMMON BILE DUCT: identified at 5-10 mins. GALLBLADDER: Not identified up to 3 hours post isotope administration. SMALL BOWEL: Identified at 10 mins. IMPRESSION: 1. Findings suggestive of acute cystic duct obstruction. 2. No nuclear evidence of common bile duct obstruction.
[2017-04-22] MEDS: metroNIDAZOLE IV 500 mg/100 ml 500 MG/100 ML BAG IVPB SCH ×3 (01:00→17:29)
[2017-04-22] MEDS: Ciprofloxacin 400mg/200ml D5W 400 MG/200 ML BAG IVPB SCH ×2 (04:46→17:29)
[2017-04-22 07:43] LABS: BASO % 0.2 % (0.0-2.0); EOS # 0.1 K/uL (0.0-0.7); EOS % 1.5 % (0.0-4.0); HEMATOCRIT 30.4 % (35.0-51.0); LYMPH # 0.7 K/uL (1.0-4.3); LYMPH % 8.3 % (20.0-40.0); MEAN CELL VOLUME 71.8 fL (80.0-94.0); MEAN CORPUSCULAR HEMOGLOBIN 23.9 pg (27.0-31.0); MEAN CORPUSCULAR HGB CONC 33.3 g/dL (33.0-37.0); MEAN PLATELET VOLUME 8.7 fL (7.2-11.7); PLATELET COUNT 229 K/uL (130-400); RED CELL DISTRIBUTION WIDTH 18.8 % (11.5-14.5); WHITE BLOOD COUNT 8.9 K/uL (4.8-10.8)
[2017-04-22 07:57] LABS: ALB/GLOB RATIO 1.1 (1.0-2.1); ALKALINE PHOSPHATASE 104 U/L (38-126); ALT/SGPT 42 U/L (21-72); AST/SGOT 30 U/L (17-59); BILIRUBIN,TOTAL 0.8 mg/dL (0.2-1.3); BLOOD UREA NITROGEN 8 mg/dL (9-20); CALCIUM 7.9 mg/dl (8.6-10.4); CARBON DIOXIDE 20 mmol/L (22-30); CHLORIDE 105 mmol/L (98-107); GFR AFRICAN-AMERICAN > 60; GLUCOSE,RANDOM 112 mg/dL (75-110); POTASSIUM 3.2 mmol/L (3.6-5.2); SODIUM 134 mmol/L (132-148); TOTAL PROTEIN 6.2 g/dL (6.3-8.3)
[2017-04-22] MEDS ORDERED: Potassium Chloride 40 MEQ in Sodium Chloride 0.9% 500 ML IV SCH (09:00)
--- NOTE | 2017-04-22 09:27 | PN ---
DAILY PROGRESS NOTE DATE: 04/21/2017 SUBJECTIVE: The patient is seen today on 04/21/2017. He is not in any cardiopulmonary distress. PHYSICAL EXAMINATION: VITAL SIGNS: Blood pressure 146/57, temperature 98.5, respiratory rate 20 and pulse 86. HEENT: Pupils equal, reactive to light. Normal-appearing mucosa of the conjunctivae, oropharyngeal and nasal membrane mucosa. NECK: Supple. No JVD. No carotid bruit. No lymph node. No thyromegaly. CHEST AND LUNGS: Bilateral symmetrical expansion. Good air exchange. No rales. No rhonchi. CARDIOVASCULAR SYSTEM: PMI not localized. S1 and S2. No additional sounds. ABDOMEN: Normoactive bowel sounds. No tenderness. No organomegaly. No masses. EXTREMITIES: No cyanosis. No clubbing. No edema. CENTRAL NERVOUS SYSTEM: Alert, awake, oriented x2. No neurological deficit could be appreciated. LABORATORY DATA: The hepatobiliary scan today showed obstruction of the cystic duct suggestive of acute cholecystitis. ASSESSMENT: 1. Acute cholecystitis. 2. Hypertension. 3. Hypercholesterolemia. PLAN: The patient is scheduled for lap cholecystectomy by Dr. Hill tomorrow morning. Continue current medications. Russell Fairbanks MD cc:
[2017-04-22 10:26] LABS: EOSINOPHIL 5 % (0-4); NEUTROPHIL 76 % (50-75); TOTAL CELLS COUNTED 100
[2017-04-22] MEDS: Pantoprazole 40 mg EC Tab PO SCH (10:35)
[2017-04-22] MEDS ORDERED: Rocuronium 10 mg/ml (5 ml) ONE (11:51)
[2017-04-22] MEDS ORDERED: Propofol 10 mg/ml Inj (20 ML) ONE (11:51)
[2017-04-22] MEDS ORDERED: Phenylephrine 10 mg/ml Inj ONE (11:51)
[2017-04-22] MEDS ORDERED: Iohexol 240 (50 ml) ONE (12:00)
[2017-04-22] MEDS ORDERED: Lactated Ringer's 1,000 ML IV ONE (12:10)
[2017-04-22] MEDS ORDERED: Ciprofloxacin 400mg/200ml D5W 400 MG/200 ML BAG IVPB ONE (12:28)
[2017-04-22] MEDS ORDERED: Neostigmine Methylsulfate 3mg/3ml Syringe IV ONE (14:30)
[2017-04-22] MEDS ORDERED: Dexamethasone 4 mg/1 ml IVP PRN (14:45)
[2017-04-22] MEDS ORDERED: HYDROmorphone 0.5 mg/0.5 ml ISec IVP PRN (14:46)
--- NOTE | 2017-04-22 14:47 | PCM.SURG1 ---
Surgeon's Initial Post Op Note - Surgeon's Notes Surgeon: Dr. Hill Improvement Advisor: Dr. Priest PGY3, Dioni OMS3 Type of Anesthesia: General Endo Pre-Operative Diagnosis: Cholecystitis Operative Findings: Dense adhesions, bowel stuck to previous mesh, unable to visualize gallbladder causing conversion to open. Once open, gangrenous gallbadder visualized. Post-Operative Diagnosis: Gangrenous cholecystitis Operation Performed: Laparoscopic converted to open cholecystectomy with intraoperative cholangiogram. Specimen/Specimens Removed: Gallbladder with gallstones. Estimated Blood Loss: EBL {In ML}: 300 Blood Products Given: N/A Drains Used: Delroy Post-Op Condition: Fair Date of Surgery/Procedure: 04/22/17 Time of Surgery/Procedure: 14:53
[2017-04-22] MEDS ORDERED: Albuterol-Ipratrop 3 mg / 0.5 (3 ml) UD ONE (14:53)
[2017-04-22] MEDS ORDERED: Albuterol-Ipratrop 3 mg / 0.5 (3 ml) UD INH ONE (15:13)
[2017-04-22] MEDS ORDERED: Dextrose 5%/0.45% NS 1,000 ML IV SCH ×2 (15:15)
[2017-04-22] MEDS: HYDROmorphone 0.5 mg/0.5 ml ISec IVP PRN ×2 (18:40→23:38)
[2017-04-23] MEDS: metroNIDAZOLE IV 500 mg/100 ml 500 MG/100 ML BAG IVPB SCH ×3 (00:22→17:51)
--- NOTE | 2017-04-23 00:58 | PN ---
DATE: 04/22/2017 SUBJECTIVE: The patient is seen today 04/22/2017 postoperative, status post open cholecystectomy with lysis of adhesions. PHYSICAL EXAMINATION VITAL SIGNS: Blood pressure 136/74, temperature 98.0, respiratory rate 20 and pulse 90. HEENT: Pupils equal, reactive to light. Normal-appearing mucosa of the conjunctivae, oropharynx, and nasal membrane mucosa. NECK: Supple. No JVD. No carotid bruit. No lymph node. No thyromegaly. CHEST AND LUNGS: Bilateral symmetrical expansion. Good air exchange. No rales. No rhonchi. CARDIOVASCULAR SYSTEM: PMI not localized. S1, S2. No additional sounds. ABDOMEN: Normoactive bowel sounds. No tenderness. No organomegaly. No masses. EXTREMITIES: No cyanosis, no clubbing, no edema. CENTRAL NERVOUS SYSTEM: Alert, awake, oriented x2. No neurological deficit could be appreciated. ASSESSMENT: 1. Status post open cholecystectomy. 2. Status post small bowel obstruction. 3. Hypertension. 4. Hypercholesterolemia. PLAN: Continue IV fluids, monitor electrolytes, continue current antibiotics. Guarded prognosis. Repeat blood work in the morning. Russell Fairbanks MD
--- NOTE | 2017-04-23 02:41 | OP ---
PROCEDURE DATE: 04/22/2017 PREOPERATIVE DIAGNOSIS: Acute cholecystitis. POSTOPERATIVE DIAGNOSIS: Gangrenous cholecystitis. PROCEDURE CARRIED OUT: Attempted laparoscopic and then open cholecystectomy with intraoperative cholangiogram. SURGEON: Dr. Liz Dougherty. HEALTH RESEARCHER: Dr. Priest, resident. ANESTHESIOLOGIST: Stella Peguero CRNA. TYPE OF ANESTHESIA: General anesthesia. ESTIMATED BLOOD LOSS: 300 mL. HISTORY: An 81-year-old man, multiple previous abdominal operations, primarily the umbilicus descended lower. OPERATIVE FINDINGS: Gangrenous gallbladder, multiple adhesions, we were despite placing two 5 mm trocars unable to clearly visualize the gallbladder and there were numerous adhesions which prevented us from doing this further. There was a previous mesh repair at the umbilicus. PROCEDURE: The patient was given general anesthesia, intravenous antibiotics. Venodyne boots were applied. We attempted using Veress needle. We created pneumoperitoneum. We placed a 5 mm trocar in the left upper quadrant just off the midline. We then placed another one in the right upper quadrant. Despite doing this, we were unable to visualize everything satisfactorily, because of this, we converted to an open operation. We converted the subcostal incision. He had very dense adhesions around the gallbladder. We carried out a cholangiogram which showed free-flow into the duodenum, visualization of the hepatic radicals and no evidence of any stones or strictures. After this had been done, I packed the area and controlled the bleeding. We placed a drain, we irrigated this out, checked again for hemostasis on two separate occasions. Both the cystic duct and the cystic artery were clipped, although these were clipped in tandem together. We then placed the drain, closed the abdomen with running sutures of #1 PDS and closed the skin with skin clips. There was no evidence of any bowel injury. There was no evidence of any adhesions immediately in the area which would prevent us from carrying out the closure which we accomplished. Operation carried out, open cholecystectomy with cholangiogram. Baljeet Hill Jr., MD cc: Russell Fairbanks MD
[2017-04-23] MEDS: HYDROmorphone 0.5 mg/0.5 ml ISec IVP PRN ×3 (03:50→17:48)
[2017-04-23] MEDS: Ciprofloxacin 400mg/200ml D5W 400 MG/200 ML BAG IVPB SCH ×2 (04:09→17:50)
[2017-04-23 07:31] LABS: BASO % 0.1 % (0.0-2.0); HEMATOCRIT 30.7 % (35.0-51.0); LYMPH # 0.6 K/uL (1.0-4.3); LYMPH % 4.1 % (20.0-40.0); MEAN CORPUSCULAR HEMOGLOBIN 23.5 pg (27.0-31.0); MEAN CORPUSCULAR HGB CONC 32.6 g/dL (33.0-37.0); MEAN PLATELET VOLUME 8.2 fL (7.2-11.7); MONO # 1.8 K/uL (0.0-0.8); MONO % 12.8 % (0.0-10.0); NRBC % 0.2 % (0.0-2.0); PLATELET COUNT 298 K/uL (130-400); RED CELL DISTRIBUTION WIDTH 18.4 % (11.5-14.5)
[2017-04-23 07:33] LABS: WHITE BLOOD COUNT 14.1 K/uL (4.8-10.8)
[2017-04-23 07:57] LABS: ALB/GLOB RATIO 1.1 (1.0-2.1); ALKALINE PHOSPHATASE 104 U/L (38-126); ALT/SGPT 68 U/L (21-72); AST/SGOT 98 U/L (17-59); BILIRUBIN,TOTAL 0.7 mg/dL (0.2-1.3); BLOOD UREA NITROGEN 12 mg/dL (9-20); CALCIUM 7.5 mg/dl (8.6-10.4); CARBON DIOXIDE 15 mmol/L (22-30); CHLORIDE 105 mmol/L (98-107); GFR AFRICAN-AMERICAN > 60; GLUCOSE,RANDOM 143 mg/dL (75-110); POTASSIUM 3.8 mmol/L (3.6-5.2); SODIUM 134 mmol/L (132-148); TOTAL PROTEIN 6.3 g/dL (6.3-8.3)
[2017-04-23 09:35] LABS: NEUTROPHIL 83 % (50-75); TOTAL CELLS COUNTED 100
--- NOTE | 2017-04-23 09:36 | RAD ---
PROCEDURE: Intraoperative fluoroscopy HISTORY: SYMPTOMATIC CHOLEITHIASIS COMPARISON: Not available TECHNIQUE: Intraoperative fluoroscopy was provided for performance of an intraoperative cholangiogram. Total time of fluoroscopy was 30.1 seconds. FINDINGS: Multiple fluoroscopic spot films are submitted. Films are on file for review. IMPRESSION: Fluoroscopy provided.
[2017-04-23] MEDS: Pantoprazole 40 mg EC Tab PO SCH (09:44)
--- NOTE | 2017-04-23 13:39 | CP.PCM.PN ---
Subjective - Date & Time of Evaluation Date of Evaluation: 04/23/17 Time of Evaluation: 13:37 - Subjective Subjective: hct 30 wbc 14 findings discussed with patient stable Objective - Vital Signs/Intake and Output Vital Signs (last 24 hours): Temp Pulse Resp BP Pulse Ox 98.3 F 93 H 20 136/42 L 95 04/23/17 08:00 04/23/17 08:00 04/23/17 08:00 04/23/17 08:00 04/23/17 08:00 Intake and Output: 04/23/17 04/23/17 06:59 18:59 Intake Total 1600 Output Total 630 Balance 970 - Medications Medications: Current Medications Acetaminophen (Tylenol 325mg Tab) 650 mg PO Q6 PRN PRN Reason: Temperature Last Admin: 04/21/17 20:24 Dose: 650 mg Amlodipine Besylate (Norvasc) 5 mg PO DAILY [facility] Last Admin: 04/23/17 09:44 Dose: 5 mg Aspirin (Ecotrin) 81 mg PO DAILY [facility] Last Admin: 04/23/17 09:44 Dose: 81 mg Docusate Sodium (Colace) 100 mg PO BID [facility] Last Admin: 04/23/17 09:44 Dose: 100 mg Fenofibrate (Tricor) 145 mg PO DAILY [facility] Last Admin: 04/23/17 09:44 Dose: 145 mg Hydromorphone HCl (Dilaudid) 0.5 mg IVP Q4H PRN PRN Reason: Pain, moderate (4-7) Last Admin: 04/23/17 08:38 Dose: 0.5 mg Ciprofloxacin (Cipro 400mg/200ml Dsw) 400 mg in 200 mls @ 133 mls/hr IVPB Q12H [facility] Last Admin: 04/23/17 04:09 Dose: 133 mls/hr Metronidazole (Flagyl) 500 mg in 100 mls @ 100 mls/hr IVPB Q8H [facility] Last Admin: 04/23/17 08:23 Dose: 100 mls/hr Potassium Chloride 40 meq/ (Sodium Chloride) 1,020 mls @ 125 mls/hr IV .Q8H10M [facility] Last Admin: 04/23/17 03:53 Dose: 125 mls/hr Ondansetron HCl (Zofran Tab) 4 mg PO Q6 PRN PRN Reason: Nausea/Vomiting Pantoprazole Sodium (Protonix Ec Tab) 40 mg PO DAILY [facility] Last Admin: 04/23/17 09:44 Dose: 40 mg Rosuvastatin Calcium (Crestor) 10 mg PO HS [facility] Last Admin: 04/22/17 21:41 Dose: Not Given - Labs Labs: 04/23/17 07:12 04/23/17 07:12 PT 14.4 SECONDS (9.7-12.2) H 04/18/17 11:15 INR 1.3 04/18/17 11:15 APTT 32 SECONDS (21-34) 04/18/17 11:15
[2017-04-23] MEDS: Albuterol 0.042% Inhal Sol (1.25 mg/3 mL) UD INH SCH (18:47)
[2017-04-23] MEDS ORDERED: Albuterol 0.042% Inhal Sol (1.25 mg/3 mL) UD INH SCH (20:00)
[2017-04-24] MEDS: Albuterol 0.042% Inhal Sol (1.25 mg/3 mL) UD INH SCH ×5 (00:20→19:31)
[2017-04-24] MEDS: metroNIDAZOLE IV 500 mg/100 ml 500 MG/100 ML BAG IVPB SCH ×3 (00:36→17:38)
[2017-04-24] MEDS: Ciprofloxacin 400mg/200ml D5W 400 MG/200 ML BAG IVPB SCH ×2 (05:36→17:39)
[2017-04-24] MEDS: HYDROmorphone 0.5 mg/0.5 ml ISec IVP PRN (05:41)
[2017-04-24 08:14] LABS: BASO % 0.3 % (0.0-2.0); EOS % 0.1 % (0.0-4.0); HEMATOCRIT 26.3 % (35.0-51.0); LYMPH # 0.9 K/uL (1.0-4.3); LYMPH % 6.1 % (20.0-40.0); MEAN CELL VOLUME 71.9 fL (80.0-94.0); MEAN CORPUSCULAR HEMOGLOBIN 23.8 pg (27.0-31.0); MEAN CORPUSCULAR HGB CONC 33.1 g/dL (33.0-37.0); MEAN PLATELET VOLUME 8.1 fL (7.2-11.7); MONO # 1.9 K/uL (0.0-0.8); MONO % 12.5 % (0.0-10.0); PLATELET COUNT 289 K/uL (130-400); RED CELL DISTRIBUTION WIDTH 18.9 % (11.5-14.5)
[2017-04-24 09:12] LABS: BLOOD UREA NITROGEN 14 mg/dL (9-20); CALCIUM 7.6 mg/dl (8.6-10.4); CARBON DIOXIDE 20 mmol/L (22-30); CHLORIDE 104 mmol/L (98-107); GFR AFRICAN-AMERICAN > 60; GLUCOSE,RANDOM 126 mg/dL (75-110); POTASSIUM 3.7 mmol/L (3.6-5.2); SODIUM 136 mmol/L (132-148)
--- NOTE | 2017-04-24 09:17 | PN ---
DATE: 04/23/2017 SUBJECTIVE: The patient is seen today, 04/23/2017, postoperative day #1. PHYSICAL EXAMINATION VITAL SIGNS: Blood pressure 163/81, temperature 98.5, respiratory rate 20, and pulse 108. HEENT: Pupils are equal and reactive to light. Normal-appearing mucosa of the conjunctivae, oropharynx, and nasal membrane mucosa. NECK: Supple. No JVD, no carotid bruit, no lymph node, and no thyromegaly. CHEST AND LUNGS: Bilaterally symmetrical expansion. Good air exchange. No rales. No rhonchi. CARDIOVASCULAR SYSTEM: PMI is not localized. S1, S2. No additional sounds. ABDOMEN: Normoactive bowel sounds. No tenderness. No organomegaly. No masses. EXTREMITIES: No cyanosis. No clubbing. No edema. CENTRAL NERVOUS SYSTEM: Alert, awake, and oriented x2. No neurological deficits could be appreciated. ASSESSMENT: 1. Postoperative day #1, status post cholecystectomy. 2. Status post small bowel obstruction. 3. Hypertension. 4. Hypercholesterolemia. PLAN: Advance diet as tolerated as per Surgery. Physical therapy. We will discontinue IV fluid and give the patient nebulizer treatment due to shortness of breath and wheezing. Russell Fairbanks MD
[2017-04-24] MEDS: Pantoprazole 40 mg EC Tab PO SCH (09:26)
[2017-04-24 10:22] LABS: METAMYELOCYTE 1 % (0-0); NEUTROPHIL 72 % (50-75); TOTAL CELLS COUNTED 100
--- NOTE | 2017-04-24 15:37 | CP.PCM.PN ---
Subjective - Date & Time of Evaluation Date of Evaluation: 04/24/17 Time of Evaluation: 06:30 - Subjective Subjective: SURGERY PROGRESS NOTE FOR DR. HUDDLESTON Patient seen and examined at bedside. Pain is well controlled. He denies any problems with full liquid diet. Denies nausea or vomiting. He is passing flatus but denies BM after surgery. He states that he is urinating a lot. Had PT last on 04/22. Objective - Vital Signs/Intake and Output Vital Signs (last 24 hours): Temp Pulse Resp BP Pulse Ox 98.3 F 69 20 142/71 94 L 04/24/17 07:05 04/24/17 07:05 04/24/17 07:05 04/24/17 07:05 04/24/17 07:05 Intake and Output: 04/24/17 04/24/17 06:59 18:59 Intake Total 900 240 Output Total 365 300 Balance 535 -60 - Medications Medications: Current Medications Acetaminophen (Tylenol 325mg Tab) 650 mg PO Q6 PRN PRN Reason: Temperature Last Admin: 04/21/17 20:24 Dose: 650 mg Albuterol Sulfate (Albuterol 0.042% Inhal Beatrice (1.25mg/3ml) Ud) 1.25 mg INH RQ6 [facility] Last Admin: 04/24/17 13:23 Dose: 1.25 mg Amlodipine Besylate (Norvasc) 5 mg PO DAILY [facility] Last Admin: 04/24/17 09:26 Dose: 5 mg Aspirin (Ecotrin) 81 mg PO DAILY [facility] Last Admin: 04/24/17 09:26 Dose: 81 mg Docusate Sodium (Colace) 100 mg PO BID [facility] Last Admin: 04/24/17 09:26 Dose: 100 mg Fenofibrate (Tricor) 145 mg PO DAILY [facility] Last Admin: 04/24/17 09:26 Dose: 145 mg Heparin Sodium (Porcine) (Heparin) 5,000 units SC Q8 [facility] Last Admin: 04/24/17 14:54 Dose: 5,000 units Hydromorphone HCl (Dilaudid) 0.5 mg IVP Q4H PRN PRN Reason: Pain, moderate (4-7) Last Admin: 04/24/17 05:41 Dose: 0.5 mg Ciprofloxacin (Cipro 400mg/200ml Dsw) 400 mg in 200 mls @ 133 mls/hr IVPB Q12H [facility] Last Admin: 04/24/17 05:36 Dose: 133 mls/hr Metronidazole (Flagyl) 500 mg in 100 mls @ 100 mls/hr IVPB Q8H [facility] Last Admin: 04/24/17 09:27 Dose: 100 mls/hr Ondansetron HCl (Zofran Tab) 4 mg PO Q6 PRN PRN Reason: Nausea/Vomiting Pantoprazole Sodium (Protonix Ec Tab) 40 mg PO DAILY [facility] Last Admin: 04/24/17 09:26 Dose: 40 mg Rosuvastatin Calcium (Crestor) 10 mg PO HS [facility] Last Admin: 04/23/17 21:23 Dose: 10 mg - Labs Labs: 04/24/17 08:04 04/24/17 08:04 PT 14.4 SECONDS (9.7-12.2) H 04/18/17 11:15 INR 1.3 04/18/17 11:15 APTT 32 SECONDS (21-34) 04/18/17 11:15 - Constitutional Appears: Well, Non-toxic, No Acute Distress - Head Exam Head Exam: ATRAUMATIC, NORMAL INSPECTION - Respiratory Exam Respiratory Exam: NORMAL BREATHING PATTERN. absent: Respiratory Distress - Cardiovascular Exam Cardiovascular Exam: +S1, +S2 - GI/Abdominal Exam GI & Abdominal Exam: Soft. absent: Distended, Firm, Guarding, Rigid, Tenderness , Rebound Additional comments: Dressing clean/dry/intact Delroy drain with 35cc output over past 24 hours - Neurological Exam Neurological Exam: Alert, Awake, Oriented x3 - Psychiatric Exam Psychiatric exam: Normal Affect, Normal Mood - Skin Skin Exam: Dry, Normal Color, Warm Assessment and Plan - Assessment and Plan (Free Text) Assessment: 81yo M with acute gangrenous cholecystitis s/p laparoscopic converted to open cholecystectomy with IOC POD#2 - Afebrile, mild tachycardic overnight, now normal HR - Hgb 8.7 today (10.0 yesterday) - will recheck labs in AM - Continue IV Abx - Advanced to heart healthy diet - Encouraged ambulation and IS use - Possible DC drain tomorrow - Discussed plan with Dr. Liz Priest PGY-3
[2017-04-25] MEDS: HYDROmorphone 0.5 mg/0.5 ml ISec IVP PRN ×3 (00:14→13:31)
[2017-04-25] MEDS: metroNIDAZOLE IV 500 mg/100 ml 500 MG/100 ML BAG IVPB SCH ×3 (00:15→17:19)
[2017-04-25] MEDS: Albuterol 0.042% Inhal Sol (1.25 mg/3 mL) UD INH SCH ×4 (01:18→19:19)
[2017-04-25] MEDS: Ciprofloxacin 400mg/200ml D5W 400 MG/200 ML BAG IVPB SCH (05:21)
[2017-04-25 07:06] LABS: ALB/GLOB RATIO 0.8 (1.0-2.1); ALKALINE PHOSPHATASE 96 U/L (38-126); ALT/SGPT 65 U/L (21-72); AST/SGOT 56 U/L (17-59); BILIRUBIN,TOTAL 0.4 mg/dL (0.2-1.3); BLOOD UREA NITROGEN 13 mg/dL (9-20); CALCIUM 7.8 mg/dl (8.6-10.4); CARBON DIOXIDE 23 mmol/L (22-30); CHLORIDE 105 mmol/L (98-107); GFR AFRICAN-AMERICAN > 60; GLUCOSE,RANDOM 110 mg/dL (75-110); POTASSIUM 3.4 mmol/L (3.6-5.2); SODIUM 135 mmol/L (132-148); TOTAL PROTEIN 6.8 g/dL (6.3-8.3)
[2017-04-25 07:51] LABS: BASO # 0.1 K/uL (0.0-0.2); BASO % 0.5 % (0.0-2.0); EOS # 0.2 K/uL (0.0-0.7); EOS % 1.6 % (0.0-4.0); HEMATOCRIT 26.3 % (35.0-51.0); LYMPH # 1.2 K/uL (1.0-4.3); LYMPH % 10.2 % (20.0-40.0); MEAN CELL VOLUME 72.3 fL (80.0-94.0); MEAN CORPUSCULAR HEMOGLOBIN 23.3 pg (27.0-31.0); MEAN CORPUSCULAR HGB CONC 32.2 g/dL (33.0-37.0); MEAN PLATELET VOLUME 7.9 fL (7.2-11.7); MONO # 1.4 K/uL (0.0-0.8); MONO % 12.1 % (0.0-10.0); NRBC % 0.1 % (0.0-2.0); RED CELL DISTRIBUTION WIDTH 18.9 % (11.5-14.5); WHITE BLOOD COUNT 11.6 K/uL (4.8-10.8)
[2017-04-25] MEDS: Pantoprazole 40 mg EC Tab PO SCH (09:39)
--- NOTE | 2017-04-25 13:14 | CP.PCM.PN ---
Subjective - Date & Time of Evaluation Date of Evaluation: 04/25/17 Time of Evaluation: 13:12 - Subjective Subjective: Surgery progress note. Dr. Hill Pt seen and examined at bedside. no acute events overnight. Pain well tolerated. no N/V/D. Denies ambulation. No new complaints. Objective - Vital Signs/Intake and Output Vital Signs (last 24 hours): Temp Pulse Resp BP Pulse Ox 97.7 F 100 H 20 153/82 H 97 04/25/17 08:41 04/25/17 08:41 04/25/17 08:41 04/25/17 08:41 04/25/17 08:41 Intake and Output: 04/25/17 04/25/17 06:59 18:59 Output Total 205 Balance -205 - Medications Medications: Current Medications Acetaminophen (Tylenol 325mg Tab) 650 mg PO Q6 PRN PRN Reason: Temperature Last Admin: 04/21/17 20:24 Dose: 650 mg Albuterol Sulfate (Albuterol 0.042% Inhal Beatrice (1.25mg/3ml) Ud) 1.25 mg INH RQ6 [facility] Last Admin: 04/25/17 07:36 Dose: 1.25 mg Amlodipine Besylate (Norvasc) 5 mg PO DAILY [facility] Last Admin: 04/25/17 09:39 Dose: 5 mg Aspirin (Ecotrin) 81 mg PO DAILY [facility] Last Admin: 04/25/17 09:40 Dose: 81 mg Docusate Sodium (Colace) 100 mg PO BID [facility] Last Admin: 04/25/17 09:39 Dose: 100 mg Fenofibrate (Tricor) 145 mg PO DAILY [facility] Last Admin: 04/25/17 09:39 Dose: 145 mg Heparin Sodium (Porcine) (Heparin) 5,000 units SC Q8 [facility] Last Admin: 04/25/17 05:20 Dose: 5,000 units Hydromorphone HCl (Dilaudid) 0.5 mg IVP Q4H PRN PRN Reason: Pain, moderate (4-7) Last Admin: 04/25/17 05:47 Dose: 0.5 mg Ciprofloxacin (Cipro 400mg/200ml Dsw) 400 mg in 200 mls @ 133 mls/hr IVPB Q12H [facility] Last Admin: 04/25/17 05:21 Dose: 133 mls/hr Metronidazole (Flagyl) 500 mg in 100 mls @ 100 mls/hr IVPB Q8H [facility] Last Admin: 04/25/17 09:00 Dose: 100 mls/hr Ondansetron HCl (Zofran Tab) 4 mg PO Q6 PRN PRN Reason: Nausea/Vomiting Pantoprazole Sodium (Protonix Ec Tab) 40 mg PO DAILY [facility] Last Admin: 04/25/17 09:39 Dose: 40 mg Rosuvastatin Calcium (Crestor) 10 mg PO HS [facility] Last Admin: 04/24/17 21:20 Dose: 10 mg - Labs Labs: 04/25/17 06:42 04/25/17 06:42 PT 14.4 SECONDS (9.7-12.2) H 04/18/17 11:15 INR 1.3 04/18/17 11:15 APTT 32 SECONDS (21-34) 04/18/17 11:15 - Constitutional Appears: Non-toxic, No Acute Distress - Head Exam Head Exam: ATRAUMATIC, NORMAL INSPECTION, NORMOCEPHALIC - Eye Exam Eye Exam: EOMI, Normal appearance. absent: Scleral icterus - ENT Exam ENT Exam: Mucous Membranes Moist - Cardiovascular Exam Cardiovascular Exam: RRR, +S1, +S2. absent: JVD - GI/Abdominal Exam GI & Abdominal Exam: Soft. absent: Guarding, Rigid, Tenderness, Rebound Additional comments: Dressing clean, dry and intact. Drain in place with minimal output. - Extremities Exam Extremities Exam: Normal Inspection. absent: Calf Tenderness - Neurological Exam Neurological Exam: Alert, Awake, Oriented x3 Assessment and Plan - Assessment and Plan (Free Text) Assessment: 81yo M with acute gangrenous cholecystitis s/p lap converted to open cholecystectomy with IOC POD#3 - Afebrile, mild tachycardia. No distress - Leukocytosis down-trending - H/H stable. Will continue to monitor - Drain will be removed today - Continue IV Abx - Encourage ambulation and IS use Further recs as per Dr. Liz Garvin PGY1 surgery pager: [phone]
--- NOTE | 2017-04-25 15:17 | CP.PCM.PN ---
Subjective - Date & Time of Evaluation Date of Evaluation: 04/25/17 Time of Evaluation: 15:15 - Subjective Subjective: PLAN DURING ROUNDS TODAY WERE TO D/C PT TO TCU IF ACCEPTED. UPON REVIEW OF THE CHART, PT HAS LEUKOCYTOSIS, IS TACHYCARDIC, AND HAS A POSITIVE CULTURE ( SEE MICRO REPORT) FORM THE GALLBLADDER SENT FROM THE OR. SENSITIVITY REPORT REVIEWED AND DISCUSSED ALL FINDINGS WITH Ora GUILLEN. DR. BRADEN NOTIFIED FOR ID CONSULT. CIPRO D/C'D, VANCO STARTED, CONTINUE FLAGYL, BLOOD CULTURE STAT, AND AM LABS ALL ORDERED. DR. BRADEN TO SEE THE PT DURING HER ROUNDS. NO FURTHER ORDERS. Objective - Vital Signs/Intake and Output Vital Signs (last 24 hours): Temp Pulse Resp BP Pulse Ox 97.7 F 100 H 20 153/82 H 97 04/25/17 08:41 04/25/17 08:41 04/25/17 08:41 04/25/17 08:41 04/25/17 08:41 Intake and Output: 04/25/17 04/25/17 06:59 18:59 Output Total 205 Balance -205 - Medications Medications: Current Medications Acetaminophen (Tylenol 325mg Tab) 650 mg PO Q6 PRN PRN Reason: Temperature Last Admin: 04/21/17 20:24 Dose: 650 mg Albuterol Sulfate (Albuterol 0.042% Inhal Beatrice (1.25mg/3ml) Ud) 1.25 mg INH RQ6 [facility] Last Admin: 04/25/17 13:48 Dose: Not Given Amlodipine Besylate (Norvasc) 5 mg PO DAILY [facility] Last Admin: 04/25/17 09:39 Dose: 5 mg Aspirin (Ecotrin) 81 mg PO DAILY [facility] Last Admin: 04/25/17 09:40 Dose: 81 mg Docusate Sodium (Colace) 100 mg PO BID [facility] Last Admin: 04/25/17 09:39 Dose: 100 mg Fenofibrate (Tricor) 145 mg PO DAILY [facility] Last Admin: 04/25/17 09:39 Dose: 145 mg Heparin Sodium (Porcine) (Heparin) 5,000 units SC Q8 [facility] Last Admin: 04/25/17 13:30 Dose: 5,000 units Hydromorphone HCl (Dilaudid) 0.5 mg IVP Q4H PRN PRN Reason: Pain, moderate (4-7) Last Admin: 04/25/17 13:31 Dose: 0.5 mg Metronidazole (Flagyl) 500 mg in 100 mls @ 100 mls/hr IVPB Q8H [facility] Last Admin: 04/25/17 09:00 Dose: 100 mls/hr Vancomycin HCl 1 gm/ Sodium (Chloride) 250 mls @ 166.7 mls/hr IVPB Q24H [facility] Ondansetron HCl (Zofran Tab) 4 mg PO Q6 PRN PRN Reason: Nausea/Vomiting Pantoprazole Sodium (Protonix Ec Tab) 40 mg PO DAILY [facility] Last Admin: 04/25/17 09:39 Dose: 40 mg Rosuvastatin Calcium (Crestor) 10 mg PO HS [facility] Last Admin: 04/24/17 21:20 Dose: 10 mg - Labs Labs: 04/25/17 06:42 04/25/17 06:42 PT 14.4 SECONDS (9.7-12.2) H 04/18/17 11:15 INR 1.3 04/18/17 11:15 APTT 32 SECONDS (21-34) 04/18/17 11:15
--- NOTE | 2017-04-25 17:27 | CP.PCM.CON ---
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 Pain subsided once he came to the hospital but workup revealed with gallbladder sono and HIDA scan that patient has acute cystic duct obstruction and cholelithiasis. Patient was started on IV Cipro and Flagyl by the PMD. PATIENT IS S/P Laparoscopic converted to open cholecystectomy with intraoperative cholangiogram. 04/22/17. PATIENT WAS FOUND TO HAVE A GANGRENOUS GALLBLADDER WITH ADHESIONS TO THE PREVIOUS MESH REPORTED IN THE POSTOPERATIVE REPORT. TISSUE CULTURES REPORTED TODAY FOR +VE STREP VIRIDANS. INFECTIOUS DISEASE CONSULTATION THEREFORE REQUESTED BY PMD PATIENT WAS FOUND TO HAVE ALSO INCREASING LEUKOCYTOSIS POSTOPERATIVELY. PATIENT WAS STARTED ON IV VANCOMYCIN 1 G DAILY NOTED. PATIENT CONTINUES TO HAVE POSTOPERATIVE PAIN. PATIENT ALSO REPORTS THAT Jarred- Maharaj WAS REMOVED TODAY. PMD: Dr. Fairbanks PMH: Smal bowel CA, Asthma, HTN, Hypercholesterolemia Meds: as per EMR Allergy: Diphenhydramine PSH: Appendectomy, Endoscopy, Hernia Repair, small bowel resection FH: unknown Social: denies tobacco/EtOH/illicit drug use Review of Systems - Constitutional Constitutional: absent: Chills, Fever - EENT Eyes: absent: Blurred Vision Nose/Mouth/Throat: absent: Mouth Lesions - Cardiovascular Cardiovascular: absent: Chest Pain, Dyspnea, Pedal Edema - Respiratory Respiratory: absent: Cough, Hemoptysis - Gastrointestinal Gastrointestinal: Abdominal Pain (postoperative site.). absent: Nausea, Vomiting - Genitourinary Genitourinary: absent: Difficulty Urinating, Dysuria, Freq UTI - Neurological Neurological: absent: Headaches - Hematologic/Lymphatic Hematologic: As Per HPI. absent: Easy Bruising Past Patient History - Infectious Disease Hx of Infectious Diseases: None - Past Medical History & Family History Past Medical History?: Yes - Past Social History Smoking Status: Never Smoked - CARDIAC Hx Hypercholesterolemia: Yes Hx Hypertension: Yes - PULMONARY Hx Asthma: Yes Hx Bronchitis: Yes Hx Pneumonia: Yes (2010) - NEUROLOGICAL Hx Neurological Disorder: No - HEENT Hx HEENT Problems: Yes Other/Comment: Difficulty hearing of R Ear - RENAL Hx Chronic Kidney Disease: No - ENDOCRINE/METABOLIC Hx Endocrine Disorders: No - HEMATOLOGICAL/ONCOLOGICAL Hx Blood Disorders: Yes Hx Cancer: Yes (colorectal) Hx Chemotherapy: Yes (2002) - INTEGUMENTARY Hx Dermatological Problems: No - MUSCULOSKELETAL/RHEUMATOLOGICAL Hx Musculoskeletal Disorders: No Hx Falls: No - GASTROINTESTINAL Hx Gastrointestinal Disorders: Yes Other/Comment: COLON CANCER - GENITOURINARY/GYNECOLOGICAL Hx Genitourinary Disorders: No - PSYCHIATRIC Hx Substance Use: No - SURGICAL HISTORY Hx Appendectomy: Yes - ANESTHESIA Hx Anesthesia: Yes Hx Anesthesia Reactions: No Hx Malignant Hyperthermia: No Meds Allergies/Adverse Reactions: Allergies Allergy/AdvReac Type Severity Reaction Status Date / Time diphenhydramine HCl AdvReac Verified 04/17/17 16:11 [From Benadryl] - Medications Medications: Current Medications Acetaminophen (Tylenol 325mg Tab) 650 mg PO Q6 PRN PRN Reason: Temperature Last Admin: 04/21/17 20:24 Dose: 650 mg Albuterol Sulfate (Albuterol 0.042% Inhal Beatrice (1.25mg/3ml) Ud) 1.25 mg INH RQ6 [facility] Last Admin: 04/25/17 13:48 Dose: Not Given Amlodipine Besylate (Norvasc) 5 mg PO DAILY [facility] Last Admin: 04/25/17 09:39 Dose: 5 mg Aspirin (Ecotrin) 81 mg PO DAILY [facility] Last Admin: 04/25/17 09:40 Dose: 81 mg Docusate Sodium (Colace) 100 mg PO BID [facility] Last Admin: 04/25/17 09:39 Dose: 100 mg Fenofibrate (Tricor) 145 mg PO DAILY [facility] Last Admin: 04/25/17 09:39 Dose: 145 mg Heparin Sodium (Porcine) (Heparin) 5,000 units SC Q8 [facility] Last Admin: 04/25/17 13:30 Dose: 5,000 units Hydromorphone HCl (Dilaudid) 0.5 mg IVP Q4H PRN PRN Reason: Pain, moderate (4-7) Last Admin: 04/25/17 13:31 Dose: 0.5 mg Metronidazole (Flagyl) 500 mg in 100 mls @ 100 mls/hr IVPB Q8H [facility] Last Admin: 04/25/17 17:19 Dose: 100 mls/hr Piperacillin Sod/Tazobactam Sod (Zosyn 3.375 Gm Iv Premix) 3.375 gm in 50 mls @ 100 mls/hr IVPB Q8H [facility] Ondansetron HCl (Zofran Tab) 4 mg PO Q6 PRN PRN Reason: Nausea/Vomiting Pantoprazole Sodium (Protonix Ec Tab) 40 mg PO DAILY [facility] Last Admin: 04/25/17 09:39 Dose: 40 mg Rosuvastatin Calcium (Crestor) 10 mg PO HS [facility] Last Admin: 04/24/17 21:20 Dose: 10 mg Physical Exam - Constitutional Appears: No Acute Distress - Head Exam Head Exam: NORMAL INSPECTION - Eye Exam Eye Exam: EOMI, PERRL - ENT Exam ENT Exam: Normal Oropharynx - Neck Exam Neck exam: Positive for: Normal Inspection - Respiratory Exam Respiratory Exam: Clear to Auscultation Bilateral - GI/Abdominal Exam GI & Abdominal Exam: Normal Bowel Sounds, Soft, Tenderness (postoperative wound site. Dressing in place which is dry.) - Extremities Exam Extremities exam: Positive for: pedal pulses present. Negative for: calf tenderness, pedal edema - Neurological Exam Neurological exam: Alert, CN II-XII Intact, Oriented x3, Reflexes Normal - Psychiatric Exam Psychiatric exam: Normal Mood - Skin Skin Exam: Normal Color, Warm Results - Vital Signs Recent Vital Signs: Last Vital Signs Temp 98.6 F 04/25/17 15:14 Pulse 105 H 04/25/17 15:14 Resp 20 04/25/17 15:14 BP 117/62 04/25/17 15:14 Pulse Ox 94 L 04/25/17 15:14 - Labs Result Diagrams: 04/25/17 06:42 04/25/17 06:42 Labs: Laboratory Results - last 24 hr 04/25/17 04/25/17 06:42 06:42 WBC 11.6 H RBC 3.63 L Hgb 8.4 L Hct 26.3 L MCV 72.3 L MCH 23.3 L MCHC 32.2 L RDW 18.9 H Plt Count 303 MPV 7.9 Neut % (Auto) 75.6 H Lymph % (Auto) 10.2 L [place] % (Auto) 12.1 H Eos % (Auto) 1.6 Baso % (Auto) 0.5 Neut # 8.8 H Lymph # 1.2 [place] # 1.4 H Eos # 0.2 Baso # 0.1 Sodium 135 Potassium 3.4 L Chloride 105 Carbon Dioxide 23 Anion Gap 10 BUN 13 Creatinine 1.0 Est GFR ( Amer) > 60 Est GFR (Non-Af Amer) > 60 Random Glucose 110 Calcium 7.8 L Total Bilirubin 0.4 AST 56 ALT 65 Alkaline Phosphatase 96 Total Protein 6.8 Albumin 3.1 L Globulin 3.8 Albumin/Globulin Ratio 0.8 L - Imaging and Cardiology Chest x-ray Status: Report reviewed by me (chest x-ray 04/17/17 no active disease.) Assessment & Plan (1) Acute gangrenous cholecystitis Assessment and Plan: Patient Postoperative # day 3 Tissue cultures positive for Strep Viridans. DC IV vancomycin. Start IV Zosyn 3.375 every 8 hourly for broader gram-positive and strep coverage.04/25/17. Continue IV Flagyl 500 mg every 8 hourly. 04/20/17 Status: Acute (2) Status post cholecystectomy Assessment and Plan: S/P OPEN CHOLYCYSTECTOMY 04/22/17. PATIENT FOUND TO HAVE GANGRENOUS GALLBLADDER, AND MANY ADHESIONS WITH PREVIOUS MESH INSERTED. Status: Acute (3) Abdominal pain Assessment and Plan: POSTOPERATIVE PAIN. DRESSING IN PLACE Status: Acute (4) Asthma Assessment and Plan: SPIROMETRY AT BEDSIDE. Status: Acute
[2017-04-25] MEDS ORDERED: Piperacillin/Tazobact 3.375 GM in Sodium Chloride 100 ML IVPB SCH (18:00)
[2017-04-25] MEDS: Piperacill/Tazo 3.375gm in Dex 3.375 GM/50 ML BAG IVPB SCH (18:41)
[2017-04-26] MEDS: HYDROmorphone 0.5 mg/0.5 ml ISec IVP PRN (00:40)
[2017-04-26] MEDS: metroNIDAZOLE IV 500 mg/100 ml 500 MG/100 ML BAG IVPB SCH ×3 (00:41→16:41)
[2017-04-26] MEDS: Albuterol 0.042% Inhal Sol (1.25 mg/3 mL) UD INH SCH ×4 (01:07→19:44)
[2017-04-26] MEDS: Piperacill/Tazo 3.375gm in Dex 3.375 GM/50 ML BAG IVPB SCH ×3 (01:56→17:26)
[2017-04-26 08:18] LABS: BASO # 0.1 K/uL (0.0-0.2); BASO % 0.5 % (0.0-2.0); EOS # 0.2 K/uL (0.0-0.7); EOS % 2.1 % (0.0-4.0); HEMATOCRIT 26.9 % (35.0-51.0); LYMPH # 1.6 K/uL (1.0-4.3); LYMPH % 13.6 % (20.0-40.0); MEAN CELL VOLUME 71.5 fL (80.0-94.0); MEAN CORPUSCULAR HEMOGLOBIN 23.3 pg (27.0-31.0); MEAN CORPUSCULAR HGB CONC 32.5 g/dL (33.0-37.0); MEAN PLATELET VOLUME 7.3 fL (7.2-11.7); MONO # 1.2 K/uL (0.0-0.8); MONO % 10.3 % (0.0-10.0); NRBC % 0.1 % (0.0-2.0); PLATELET COUNT 392 K/uL (130-400); RED CELL DISTRIBUTION WIDTH 18.7 % (11.5-14.5); WHITE BLOOD COUNT 11.7 K/uL (4.8-10.8)
[2017-04-26 08:55] LABS: ALKALINE PHOSPHATASE 99 U/L (38-126); ALT/SGPT 60 U/L (21-72); AST/SGOT 58 U/L (17-59); BILIRUBIN,TOTAL 0.8 mg/dL (0.2-1.3); BLOOD UREA NITROGEN 13 mg/dL (9-20); CALCIUM 7.8 mg/dl (8.6-10.4); CARBON DIOXIDE 23 mmol/L (22-30); CHLORIDE 105 mmol/L (98-107); GFR AFRICAN-AMERICAN > 60; GLUCOSE,RANDOM 121 mg/dL (75-110); POTASSIUM 3.3 mmol/L (3.6-5.2); SODIUM 137 mmol/L (132-148); TOTAL PROTEIN 6.4 g/dL (6.3-8.3)
[2017-04-26] MEDS: Pantoprazole 40 mg EC Tab PO SCH (09:19)
[2017-04-26 11:15] LABS: EOSINOPHIL 4 % (0-4); METAMYELOCYTE 2 % (0-0); MYELOCYTE 4 % (0-0); NEUTROPHIL 63 % (50-75); TOTAL CELLS COUNTED 100
[2017-04-26] MEDS ORDERED: Potassium Chloride 20 mEq/15 ml LIQ UD PO ONE (12:44)
--- NOTE | 2017-04-26 21:02 | CP.PCM.PN ---
Subjective - Date & Time of Evaluation Date of Evaluation: 04/26/17 Time of Evaluation: 21:02 - Subjective Subjective: CHIEF COMPLAINTS TODAY : c/o cough /pleuritic pain rt chest posteriorly. mild postoperative pain . NO BOWEL MOVEMENT YET ROS. HEENT : N. Resp : POSITIVE COUGH, no wheezing , +ve pleuritic CP ,no hemoptysis Cardio : No anginal CP, PND, orthopnea, palpitation GI : No abd.pain, n/v ,diarrhea or GI bleeding . IN HOME SALES CONSULTANT : No headache, vertigo, focal deficit. Musculoskel : No joint swelling , Derm : No rash Psych : Normal affect. Ext : No swelling ,calf pain PE. Pt. is alert awake in no distress. V.S As noted in the chart Head ,ear nose,throat and eyes : Normal. Neck : Supple with normal carotids. Lungs: RHONCHI RIGHT SIDE POSTERIORLY. Heart : S1 & S2 normal with S4. No murmur. Abd : Soft , MILD TENDERNESS POSTOPERATIVE WOUND SITE with HYPOACTIVE bowel sounds. Neuro : Moves all ext. with no localized deficit. Ext : No edema with intact pulses.Non tender calves Derm : No rashes or decubitus ulcer. LABS/RADIOLOGY: REVIEWED ASSESSMENT/PLAN : POSTOPERATIVE S/P OPEN CHOLECYSTECTOMY. GANGRENOUS GALLBLADDER +VE STREP VIRIDANS lEUKOCYTOSIS R/O PNEUMONIA ? ASPIRATION. ASTHMA. PLAN WILL CHECK CHEST X-RAY. CONTINUE iv ANTIBIOTICS iv zOSYN 3.375 EVERY 8 HOURLY 04/26/17 iv fLAGYL 500 MG EVERY 8 HOURLY.04/26/17 PULMONARY TOILET/SPIROMETRY AT BEDSIDE. Objective - Vital Signs/Intake and Output Vital Signs (last 24 hours): Temp Pulse Resp BP Pulse Ox 97.9 F 83 20 137/75 98 04/26/17 17:40 04/26/17 17:40 04/26/17 17:40 04/26/17 17:40 04/26/17 17:40 - Medications Medications: Current Medications Acetaminophen (Tylenol 325mg Tab) 650 mg PO Q6 PRN PRN Reason: Temperature Last Admin: 04/26/17 16:42 Dose: 650 mg Albuterol Sulfate (Albuterol 0.042% Inhal Beatrice (1.25mg/3ml) Ud) 1.25 mg INH RQ6 [facility] Last Admin: 04/26/17 19:44 Dose: 1.25 mg Amlodipine Besylate (Norvasc) 5 mg PO DAILY [facility] Last Admin: 04/26/17 09:19 Dose: 5 mg Aspirin (Ecotrin) 81 mg PO DAILY [facility] Last Admin: 04/26/17 09:19 Dose: 81 mg Docusate Sodium (Colace) 100 mg PO BID [facility] Last Admin: 04/26/17 17:26 Dose: 100 mg Fenofibrate (Tricor) 145 mg PO DAILY [facility] Last Admin: 04/26/17 09:19 Dose: 145 mg Heparin Sodium (Porcine) (Heparin) 5,000 units SC Q8 [facility] Last Admin: 04/26/17 13:39 Dose: 5,000 units Hydromorphone HCl (Dilaudid) 0.5 mg IVP Q4H PRN PRN Reason: Pain, moderate (4-7) Last Admin: 04/26/17 00:40 Dose: 0.5 mg Metronidazole (Flagyl) 500 mg in 100 mls @ 100 mls/hr IVPB Q8H [facility] Last Admin: 04/26/17 16:41 Dose: 100 mls/hr Piperacillin Sod/Tazobactam Sod (Zosyn 3.375 Gm Iv Premix) 3.375 gm in 50 mls @ 100 mls/hr IVPB Q8H [facility] Last Admin: 04/26/17 17:26 Dose: 100 mls/hr Ondansetron HCl (Zofran Tab) 4 mg PO Q6 PRN PRN Reason: Nausea/Vomiting Pantoprazole Sodium (Protonix Ec Tab) 40 mg PO DAILY [facility] Last Admin: 04/26/17 09:19 Dose: 40 mg Rosuvastatin Calcium (Crestor) 10 mg PO HS [facility] Last Admin: 04/25/17 21:27 Dose: 10 mg - Labs Labs: 04/26/17 08:05 04/26/17 08:05 PT 14.4 SECONDS (9.7-12.2) H 04/18/17 11:15 INR 1.3 04/18/17 11:15 APTT 32 SECONDS (21-34) 04/18/17 11:15 Assessment and Plan (1) Acute gangrenous cholecystitis Status: Acute (2) Status post cholecystectomy Status: Acute (3) Abdominal pain Status: Acute (4) Asthma Status: Acute
--- NOTE | 2017-04-26 23:28 | CP.PCM.PN ---
Subjective - Date & Time of Evaluation Date of Evaluation: 04/26/17 Time of Evaluation: 07:25 - Subjective Subjective: Surgery Progress note. Dr. Hill Pt seen and examined at bedside. No acute events overnight. Does report some increased distention this morning. Does report flatus, no BM. No N/V/D. Abd pain well tolerated. No F/C. No new complaints. Objective - Vital Signs/Intake and Output Vital Signs (last 24 hours): Temp Pulse Resp BP Pulse Ox 97.9 F 83 20 137/75 98 04/26/17 17:40 04/26/17 17:40 04/26/17 17:40 04/26/17 17:40 04/26/17 17:40 - Medications Medications: Current Medications Acetaminophen (Tylenol 325mg Tab) 650 mg PO Q6 PRN PRN Reason: Temperature Last Admin: 04/26/17 16:42 Dose: 650 mg Albuterol Sulfate (Albuterol 0.042% Inhal Beatrice (1.25mg/3ml) Ud) 1.25 mg INH RQ6 [facility] Last Admin: 04/26/17 19:44 Dose: 1.25 mg Amlodipine Besylate (Norvasc) 5 mg PO DAILY [facility] Last Admin: 04/26/17 09:19 Dose: 5 mg Aspirin (Ecotrin) 81 mg PO DAILY [facility] Last Admin: 04/26/17 09:19 Dose: 81 mg Docusate Sodium (Colace) 100 mg PO BID [facility] Last Admin: 04/26/17 17:26 Dose: 100 mg Fenofibrate (Tricor) 145 mg PO DAILY [facility] Last Admin: 04/26/17 09:19 Dose: 145 mg Hydromorphone HCl (Dilaudid) 0.5 mg IVP Q4H PRN PRN Reason: Pain, moderate (4-7) Last Admin: 04/26/17 00:40 Dose: 0.5 mg Metronidazole (Flagyl) 500 mg in 100 mls @ 100 mls/hr IVPB Q8H [facility] Last Admin: 04/26/17 16:41 Dose: 100 mls/hr Piperacillin Sod/Tazobactam Sod (Zosyn 3.375 Gm Iv Premix) 3.375 gm in 50 mls @ 100 mls/hr IVPB Q8H [facility] Last Admin: 04/26/17 17:26 Dose: 100 mls/hr Ondansetron HCl (Zofran Tab) 4 mg PO Q6 PRN PRN Reason: Nausea/Vomiting Pantoprazole Sodium (Protonix Ec Tab) 40 mg PO DAILY [facility] Last Admin: 04/26/17 09:19 Dose: 40 mg Rosuvastatin Calcium (Crestor) 10 mg PO HS [facility] Last Admin: 04/26/17 21:57 Dose: 10 mg - Labs Labs: 04/26/17 08:05 04/26/17 08:05 PT 14.4 SECONDS (9.7-12.2) H 04/18/17 11:15 INR 1.3 04/18/17 11:15 APTT 32 SECONDS (21-34) 04/18/17 11:15 - Constitutional Appears: Well, No Acute Distress - Head Exam Head Exam: ATRAUMATIC, NORMAL INSPECTION, NORMOCEPHALIC - Eye Exam Eye Exam: EOMI, Normal appearance - ENT Exam ENT Exam: Mucous Membranes Moist - Respiratory Exam Respiratory Exam: NORMAL BREATHING PATTERN. absent: Accessory Muscle Use, Respiratory Distress - Cardiovascular Exam Cardiovascular Exam: +S1, +S2. absent: JVD - GI/Abdominal Exam GI & Abdominal Exam: Soft Additional comments: dressing clean, dry and intact. Abd soft. mildly distended. No rebound, no guarding. Mild tenderness to palpation. - Extremities Exam Extremities Exam: Normal Inspection. absent: Calf Tenderness - Neurological Exam Neurological Exam: Alert, Awake, Oriented x3 - Psychiatric Exam Psychiatric exam: Normal Affect, Normal Mood - Skin Skin Exam: Dry, Intact, Normal Color, Warm Assessment and Plan - Assessment and Plan (Free Text) Assessment: 81yo M with acute gangrenous cholecystitis s/p lap converted to open cholecystectomy with IOC POD#4 -GB tissue culture: Strep Viridans - H/H stable - Continue IV Abx as per ID - Encourage OOB to chair. Encourage ambulation and IS use Further recs as per Dr. Liz Garvin PGY1 surgery pager: [phone]
[2017-04-27] MEDS: metroNIDAZOLE IV 500 mg/100 ml 500 MG/100 ML BAG IVPB SCH ×3 (00:58→16:22)
[2017-04-27] MEDS: HYDROmorphone 0.5 mg/0.5 ml ISec IVP PRN (01:02)
[2017-04-27] MEDS: Albuterol 0.042% Inhal Sol (1.25 mg/3 mL) UD INH SCH ×4 (01:20→19:41)
[2017-04-27] MEDS: Piperacill/Tazo 3.375gm in Dex 3.375 GM/50 ML BAG IVPB SCH ×3 (02:00→18:04)
[2017-04-27] MEDS: Pantoprazole 40 mg EC Tab PO SCH (09:16)
--- NOTE | 2017-04-27 11:13 | RAD ---
HISTORY: Cough COMPARISON: Portable chest 04/17/2017. FINDINGS: LUNGS: Diminished inspiratory volume is appreciate bilaterally. Limited airspace disease seen in the left retrocardiac space. Borderline right infrahilar airspace disease identified in the interval. PLEURA: Minimal right pleural effusion is noted. None is seen at the left. No pneumothorax bilaterally. CARDIOVASCULAR: Normal. OSSEOUS STRUCTURES: No significant abnormalities. VISUALIZED UPPER ABDOMEN: Normal. OTHER FINDINGS: None. IMPRESSION: Minimal right pleural effusion identified with questionable airspace disease in the retrocardiac space well as right infrahilar space in the interval. This may be a function of limited inspiratory effort. Please see discussion above.
--- NOTE | 2017-04-27 12:25 | CP.PCM.PN ---
Subjective - Date & Time of Evaluation Date of Evaluation: 04/27/17 Time of Evaluation: 07:45 - Subjective Subjective: Surgery progress note. Dr. Hill Pt seen and examined at bedside. No acute events overnight. Patient reports large BM this morning. Denies any F/C. No N/V/D. No new complaints. Objective - Vital Signs/Intake and Output Vital Signs (last 24 hours): Temp Pulse Resp BP Pulse Ox 98.6 F 81 20 156/73 H 99 04/27/17 07:00 04/27/17 07:00 04/27/17 07:00 04/27/17 07:00 04/27/17 07:00 Intake and Output: 04/27/17 04/27/17 06:59 18:59 Intake Total 390 Output Total 600 Balance -210 - Medications Medications: Current Medications Acetaminophen (Tylenol 325mg Tab) 650 mg PO Q6 PRN PRN Reason: Temperature Last Admin: 04/26/17 16:42 Dose: 650 mg Albuterol Sulfate (Albuterol 0.042% Inhal Beatrice (1.25mg/3ml) Ud) 1.25 mg INH RQ6 [facility] Last Admin: 04/27/17 07:57 Dose: 1.25 mg Amlodipine Besylate (Norvasc) 5 mg PO DAILY [facility] Last Admin: 04/27/17 09:16 Dose: 5 mg Aspirin (Ecotrin) 81 mg PO DAILY [facility] Last Admin: 04/27/17 09:16 Dose: 81 mg Docusate Sodium (Colace) 100 mg PO BID [facility] Last Admin: 04/27/17 09:16 Dose: 100 mg Fenofibrate (Tricor) 145 mg PO DAILY [facility] Last Admin: 04/27/17 09:17 Dose: 145 mg Hydromorphone HCl (Dilaudid) 0.5 mg IVP Q4H PRN PRN Reason: Pain, moderate (4-7) Last Admin: 04/27/17 01:02 Dose: 0.5 mg Metronidazole (Flagyl) 500 mg in 100 mls @ 100 mls/hr IVPB Q8H [facility] Last Admin: 04/27/17 09:20 Dose: 100 mls/hr Piperacillin Sod/Tazobactam Sod (Zosyn 3.375 Gm Iv Premix) 3.375 gm in 50 mls @ 100 mls/hr IVPB Q8H [facility] Last Admin: 04/27/17 10:20 Dose: 100 mls/hr Ondansetron HCl (Zofran Tab) 4 mg PO Q6 PRN PRN Reason: Nausea/Vomiting Pantoprazole Sodium (Protonix Ec Tab) 40 mg PO DAILY [facility] Last Admin: 04/27/17 09:16 Dose: 40 mg Rosuvastatin Calcium (Crestor) 10 mg PO HS [facility] Last Admin: 04/26/17 21:57 Dose: 10 mg - Labs Labs: 04/26/17 08:05 04/26/17 08:05 PT 14.4 SECONDS (9.7-12.2) H 04/18/17 11:15 INR 1.3 04/18/17 11:15 APTT 32 SECONDS (21-34) 04/18/17 11:15 - Constitutional Appears: Well, No Acute Distress - Head Exam Head Exam: ATRAUMATIC, NORMAL INSPECTION, NORMOCEPHALIC - Eye Exam Eye Exam: EOMI - ENT Exam ENT Exam: Mucous Membranes Moist - Respiratory Exam Respiratory Exam: NORMAL BREATHING PATTERN. absent: Accessory Muscle Use, Respiratory Distress - Cardiovascular Exam Cardiovascular Exam: RRR, +S1, +S2. absent: JVD - GI/Abdominal Exam GI & Abdominal Exam: Soft Additional comments: periincisional tenderness. Dressings clean, dry and intact. - Extremities Exam Extremities Exam: Normal Inspection. absent: Calf Tenderness - Neurological Exam Neurological Exam: Alert, Awake, Oriented x3 - Psychiatric Exam Psychiatric exam: Normal Affect, Normal Mood - Skin Skin Exam: Dry, Intact, Normal Color, Warm Assessment and Plan - Assessment and Plan (Free Text) Assessment: 81yo M with acute gangrenous cholecystitis s/p lap converted to open cholecystectomy with IOC POD#5 -GB tissue culture: Strep Viridans - Continue Abx as per ID - Encourage OOB to chair and ambulation. Encourage IS use - Cleared for discharge from surgical standpoint. F/u with Dr. Hill in 1 week Further recs as per Dr. Liz Garvin PGY1 surgery pager: [phone]
--- NOTE | 2017-04-27 23:57 | PN ---
DAILY PROGRESS NOTE DATE: 04/27/2017 SUBJECTIVE: The patient is seen today, 04/27/2017. He is so far tolerating diet. There is abdominal pain at the site of the surgery and the patient is on vancomycin treating the strep infection of the gangrenous gallbladder. OBJECTIVE: VITAL SIGNS: Blood pressure 146/67, temperature 98.2, respiratory rate 18 and pulse 90. HEENT: Pupils equal, reactive to light. Pallor mucosa of the conjunctivae. NECK: Supple. No JVD. No carotid bruit. No lymph node. No thyromegaly. CHEST AND LUNGS: Bilateral symmetrical expansion. Good air exchange. No rales. No rhonchi. CARDIOVASCULAR SYSTEM: PMI not localized. S1, S2. No additional sounds. ABDOMEN: Normoactive bowel sounds. No tenderness. No organomegaly. No masses. EXTREMITIES: No cyanosis . No clubbing. No edema. CHANGE MANAGEMENT DIRECTOR: Alert, awake, oriented x2 and no neurological deficit could be appreciated. ASSESSMENT: 1. Status post open cholecystectomy found to have gangrenous gallbladder. 2. Anemia of acute blood loss. 3. Hypertension. 4. Hypercholesterolemia. PLAN: We will supplement iron and continue physical therapy. Continue current IV antibiotics as per ID. Kevin MD Magdi
[2017-04-28] MEDS: HYDROmorphone 0.5 mg/0.5 ml ISec IVP PRN (00:07)
[2017-04-28] MEDS: metroNIDAZOLE IV 500 mg/100 ml 500 MG/100 ML BAG IVPB SCH ×2 (00:10→09:40)
[2017-04-28] MEDS: Piperacill/Tazo 3.375gm in Dex 3.375 GM/50 ML BAG IVPB SCH ×3 (02:00→18:02)
[2017-04-28] MEDS: Albuterol 0.042% Inhal Sol (1.25 mg/3 mL) UD INH SCH ×5 (02:06→19:43)
[2017-04-28 06:36] LABS: BASO # 0.1 K/uL (0.0-0.2); BASO % 0.5 % (0.0-2.0); EOS # 0.3 K/uL (0.0-0.7); EOS % 2.3 % (0.0-4.0); HEMATOCRIT 25.6 % (35.0-51.0); LYMPH # 1.3 K/uL (1.0-4.3); LYMPH % 11.6 % (20.0-40.0); MEAN CELL VOLUME 72.1 fL (80.0-94.0); MEAN CORPUSCULAR HEMOGLOBIN 23.9 pg (27.0-31.0); MEAN CORPUSCULAR HGB CONC 33.1 g/dL (33.0-37.0); MEAN PLATELET VOLUME 7.2 fL (7.2-11.7); MONO % 8.7 % (0.0-10.0); WHITE BLOOD COUNT 11.5 K/uL (4.8-10.8)
[2017-04-28 06:52] LABS: ALB/GLOB RATIO 0.8 (1.0-2.1); ALKALINE PHOSPHATASE 90 U/L (38-126); ALT/SGPT 45 U/L (21-72); AST/SGOT 33 U/L (17-59); BILIRUBIN,DIRECT 0.2 mg/dL (0.0-0.4); BILIRUBIN,TOTAL 0.4 mg/dL (0.2-1.3); BLOOD UREA NITROGEN 10 mg/dL (9-20); CALCIUM 7.8 mg/dl (8.6-10.4); CARBON DIOXIDE 22 mmol/L (22-30); CHLORIDE 107 mmol/L (98-107); GFR AFRICAN-AMERICAN > 60; GLUCOSE,RANDOM 97 mg/dL (75-110); POTASSIUM 3.5 mmol/L (3.6-5.2); SODIUM 136 mmol/L (132-148)
[2017-04-28] MEDS: Pantoprazole 40 mg EC Tab PO SCH (09:40)
--- NOTE | 2017-04-28 09:46 | PN ---
DATE: 04/24/2017 DAILY PROGRESS NOTE SUBJECTIVE: The patient was postoperative, day #2. Still complaining of abdominal pain at the site of the surgery. PHYSICAL EXAMINATION: VITAL SIGNS: Blood pressure 142/71, temperature 98.3, respiratory rate 20 and pulse 69. HEENT: Pupils equal, reactive to light. Normal-appearing mucosa of the conjunctivae, oropharyngeal and nasal membrane mucosa. NECK: Supple. No JVD. No carotid bruit. No lymph node. No thyromegaly. CHEST AND LUNGS: Bilateral symmetrical expansion. Good air exchange. No rales. No rhonchi. CARDIOVASCULAR SYSTEM: PMI not localized. S1 and S2. No additional sounds. ABDOMEN: Normoactive bowel sounds. No tenderness. No organomegaly. No masses. EXTREMITIES: No cyanosis. No clubbing. No edema. CENTRAL NERVOUS SYSTEM: Alert, awake, oriented x2. No neurological deficit could be appreciated. ASSESSMENT: 1. Postoperative day #2, status post cholecystectomy of gangrenous gallbladder. 2. Hypertension. 3. Hypercholesterolemia. PLAN: Advance diet as per Surgery. Continue monitor electrolytes, physical therapy. Kevin MD Magdi
--- NOTE | 2017-04-28 09:48 | PN ---
DATE: 04/25/2017 SUBJECTIVE: He is having less pain and he is tolerating diet so far. PHYSICAL EXAMINATION: VITAL SIGNS: Blood pressure 117/62, temperature 98.6, respiratory rate 20 and pulse 100. HEENT: Pupils equal and reactive to light. Normal-appearing mucosa of the conjunctivae, oropharynx and nasal membrane mucosa. NECK: Supple. No JVD. No carotid bruit. No lymph node. No thyromegaly. CHEST AND LUNGS: Bilateral symmetrical expansion. Good air exchange. No rales. No rhonchi. CARDIOVASCULAR SYSTEM: PMI not localized. S1, S2. No additional sounds. ABDOMEN: Normoactive bowel sounds. No tenderness. No organomegaly. No masses. EXTREMITIES: No cyanosis. No clubbing. No edema. DOUGH MAKER: Alert, awake, oriented x3. No neurological deficit could be appreciated. ASSESSMENT: 1. Status post open cholecystectomy for gangrenous gallbladder. Culture of the gallbladder showed Streptococcus viridans which is sensitive to vancomycin. 2. Postoperative day #3 status post open cholecystectomy. 3. Hypertension. 4. Hypercholesterolemia. PLAN: ID consult. Start the patient on vancomycin. Discontinue Cipro. Advance diet as tolerated. Follow surgical recommendations. Russell Fairbanks MD
--- NOTE | 2017-04-28 17:30 | RAD ---
HISTORY: COUGH, R/O INFILTRATE COMPARISON: Chest x-ray performed 04/27/17 TECHNIQUE: Chest PA and lateral FINDINGS: LUNGS: Right lower lobe opacity may reflect consolidation and/or pleural effusion. Wedge shaped or triangular opacity abutting the left heart border in the left lower lobe, correlate for consolidation or atelectasis. Biapical pleural thickening. No definite pneumothorax. Please note that chest x-ray has limited sensitivity for the detection of pulmonary masses. CARDIOVASCULAR: Cardiomegaly. OSSEOUS STRUCTURES: Degenerative changes of the spine. Osseous proliferation at the AC joint. VISUALIZED UPPER ABDOMEN: Unremarkable. OTHER FINDINGS: Right upper quadrant surgical clips. IMPRESSION: Right lower lobe opacity may reflect consolidation and/or pleural effusion. Follow-up to complete resolution in order to exclude possibility of underlying neoplasm. Wedge shaped or triangular opacity abutting the left heart border in the left lower lobe, correlate for consolidation or atelectasis.
--- NOTE | 2017-04-28 19:18 | CP.PCM.PN ---
Subjective - Date & Time of Evaluation Date of Evaluation: 04/28/17 Time of Evaluation: 19:18 - Subjective Subjective: CHIEF COMPLAINTS TODAY : C/O PLEURITIC CHEST PAIN RIGHT/LEFT SIDE POSTERIORLY ON COUGHING mild postoperative pain ABDOMINAL WOUND +VE AMELIE. Minimal drainage from the Ramiro[place]Frank[place] site on the dressing. patient moved his bowels. ROS. HEENT : N. Resp : POSITIVE COUGH, no wheezing , +ve pleuritic CP ,no hemoptysis Cardio : No anginal CP, PND, orthopnea, palpitation GI : No abd.pain, n/v ,diarrhea or GI bleeding . GLASS CUTTING MACHINE FEEDER : No headache, vertigo, focal deficit. Musculoskel : No joint swelling , Derm : No rash Psych : Normal affect. Ext : No swelling ,calf pain PE. Pt. is alert awake in no distress. V.S As noted in the chart Head ,ear nose,throat and eyes : Normal. Neck : Supple with normal carotids. Lungs: RHONCHI RIGHT SIDE,BRONCHIAL BS AT LT BASE POSTERIORLY Heart : S1 & S2 normal with S4. No murmur. Abd : Soft , MILD TENDERNESS POSTOPERATIVE WOUND SITE with HYPOACTIVE bowel sounds. Neuro : Moves all ext. with no localized deficit. Ext : No edema with intact pulses.Non tender calves Derm : No rashes or decubitus ulcer. LABS/RADIOLOGY: CXR 04/28/17.right lower lobe opacity/consolidation ?effusion. Left side wedge- shaped opacity wbc 11.5 improving h./h 8.5/25.6. CREATININE 1.2/bun OF 10. BLOOD CULTURES 04/25/17 -VE ASSESSMENT/PLAN : POSTOPERATIVE S/P OPEN CHOLECYSTECTOMY. GANGRENOUS GALLBLADDER +VE STREP VIRIDANS pleuritic chest pain R/O PNEUMONIA vs PE ASTHMA. PLAN CASE DISCUSSED WITH DR GUILLEN. CONSIDER CT ANGIOGRAM PE- PROTOCOL R/O PE VS / PNEUMONIA CONTINUE iv ANTIBIOTICS iv ZOSYN 3.375 EVERY 8 HOURLY 04/26/17 iv fLAGYL 500 MG EVERY 8 HOURLY.04/26/17 d. dimer. PULMONARY TOILET/SPIROMETRY AT BEDSIDE. Objective - Vital Signs/Intake and Output Vital Signs (last 24 hours): Temp Pulse Resp BP Pulse Ox 98.5 F 82 20 144/70 97 04/28/17 15:40 04/28/17 15:40 04/28/17 15:40 04/28/17 15:40 04/28/17 15:40 Intake and Output: 04/28/17 04/29/17 18:59 06:59 Intake Total 630 Output Total 450 Balance 180 - Medications Medications: Current Medications Acetaminophen (Tylenol 325mg Tab) 650 mg PO Q6 PRN PRN Reason: Temperature Last Admin: 04/26/17 16:42 Dose: 650 mg Albuterol Sulfate (Albuterol 0.042% Inhal Beatrice (1.25mg/3ml) Ud) 1.25 mg INH RQ6 [facility] Last Admin: 04/28/17 13:48 Dose: 1.25 mg Amlodipine Besylate (Norvasc) 5 mg PO DAILY [facility] Last Admin: 04/28/17 09:40 Dose: 5 mg Aspirin (Ecotrin) 81 mg PO DAILY [facility] Last Admin: 04/28/17 09:40 Dose: 81 mg Docusate Sodium (Colace) 100 mg PO BID [facility] Last Admin: 04/28/17 18:02 Dose: 100 mg Fenofibrate (Tricor) 145 mg PO DAILY [facility] Last Admin: 04/28/17 10:52 Dose: 145 mg Piperacillin Sod/Tazobactam Sod (Zosyn 3.375 Gm Iv Premix) 3.375 gm in 50 mls @ 100 mls/hr IVPB Q8H [facility] Last Admin: 04/28/17 18:02 Dose: 100 mls/hr Ondansetron HCl (Zofran Tab) 4 mg PO Q6 PRN PRN Reason: Nausea/Vomiting Pantoprazole Sodium (Protonix Ec Tab) 40 mg PO DAILY [facility] Last Admin: 04/28/17 09:40 Dose: 40 mg Rosuvastatin Calcium (Crestor) 10 mg PO HS [facility] Last Admin: 04/27/17 21:30 Dose: 10 mg - Labs Labs: 04/28/17 06:24 04/28/17 06:24 PT 14.4 SECONDS (9.7-12.2) H 04/18/17 11:15 INR 1.3 04/18/17 11:15 APTT 32 SECONDS (21-34) 04/18/17 11:15 Assessment and Plan (1) Acute gangrenous cholecystitis Status: Acute (2) Status post cholecystectomy Status: Acute (3) Abdominal pain Status: Acute (4) Asthma Status: Acute
[2017-04-29] MEDS: metroNIDAZOLE IV 500 mg/100 ml 500 MG/100 ML BAG IVPB SCH ×3 (00:39→15:32)
[2017-04-29] MEDS ORDERED: Iodixanol 320 MG/ML 100 ML BOTTLE IV ONE (00:55)
[2017-04-29] MEDS: Piperacill/Tazo 3.375gm in Dex 3.375 GM/50 ML BAG IVPB SCH ×3 (02:03→16:31)
--- NOTE | 2017-04-29 08:33 | PN ---
DATE: 04/28/2017 SUBJECTIVE: Patient is seen today, 04/28/2017. He still has abdominal pain at the site of the surgery. Patient moved bowel twice today. PHYSICAL EXAMINATION: VITAL SIGNS: Blood pressure 144/70, temperature 98.5, respiratory rate 20, and pulse 82. HEENT: Pupils equal, reactive to light. Normal-appearing mucosa of the conjunctivae, oropharynx, and nasal membrane mucosa. NECK: Supple. No JVD. No carotid bruit. No lymph node. No thyromegaly. CHEST AND LUNGS: Bilateral symmetrical expansion. Good air exchange. No rales. No rhonchi. CARDIOVASCULAR SYSTEM: PMI not localized. S1 and S2. No additional sounds. ABDOMEN: Normoactive bowel sounds. No tenderness. No organomegaly. No masses. EXTREMITIES: No cyanosis, no clubbing, no edema. CENTRAL NERVOUS SYSTEM: Alert, awake, oriented x2. No neurological deficit could be appreciated. ASSESSMENT: 1. Postoperative, status post open cholecystectomy with Streptococcus viridans infected gallbladder. 2. Status post small-bowel obstruction. 3. Hypertension. 4. Hypercholesterolemia. PLAN: Continue current antibiotics and follow recommendations of ID. Monitor electrolytes. Follow surgical recommendations. Russell Fairbanks MD
--- NOTE | 2017-04-29 08:49 | CP.PCM.PN ---
Subjective - Date & Time of Evaluation Date of Evaluation: 04/29/17 Time of Evaluation: 08:49 - Subjective Subjective: Gen Surgery: Dr Hill Pt S&E. Pt reportedly had some sob and pain with inspiratio last nightn. D- dimer was ordered and pt sent for CT angio of the chest. D-dimer elevated but this is likely secondary to surgery. CT prelimary read does not show any evidence PE - awaiting final read per radiologist. Pt demonstrates no tachycardia or hypoxia. Pt reports to me the pain is above his incision site, worse with movement and inspiration. He states the pain makes it hard for him to take in deep breathes. He states this pain is not anything new since the surgery, and he actually feels it has improved significantly. He is tolerating diet, ambulating , and having BMs. Denies N/V, F/C. Pt states he wants to go home. Objective - Vital Signs/Intake and Output Vital Signs (last 24 hours): Temp Pulse Resp BP Pulse Ox 98.1 F 79 20 130/71 97 04/28/17 23:15 04/28/17 23:15 04/28/17 23:15 04/28/17 23:15 04/28/17 23:15 Intake and Output: 04/29/17 04/29/17 06:59 18:59 Intake Total 550 Output Total 750 400 Balance -750 150 - Medications Medications: Current Medications Acetaminophen (Tylenol 325mg Tab) 650 mg PO Q6 PRN PRN Reason: Temperature Last Admin: 04/26/17 16:42 Dose: 650 mg Amlodipine Besylate (Norvasc) 5 mg PO DAILY [facility] Last Admin: 04/28/17 09:40 Dose: 5 mg Aspirin (Ecotrin) 81 mg PO DAILY [facility] Last Admin: 04/28/17 09:40 Dose: 81 mg Docusate Sodium (Colace) 100 mg PO BID [facility] Last Admin: 04/28/17 18:02 Dose: 100 mg Fenofibrate (Tricor) 145 mg PO DAILY [facility] Last Admin: 04/28/17 10:52 Dose: 145 mg Heparin Sodium (Porcine) (Heparin) 5,000 units SC Q12 [facility] Last Admin: 04/29/17 00:40 Dose: 5,000 units Piperacillin Sod/Tazobactam Sod (Zosyn 3.375 Gm Iv Premix) 3.375 gm in 50 mls @ 100 mls/hr IVPB Q8H [facility] Last Admin: 04/29/17 02:03 Dose: 100 mls/hr Metronidazole (Flagyl) 500 mg in 100 mls @ 100 mls/hr IVPB Q8H [facility] Last Admin: 04/29/17 06:09 Dose: 100 mls/hr Ondansetron HCl (Zofran Tab) 4 mg PO Q6 PRN PRN Reason: Nausea/Vomiting Pantoprazole Sodium (Protonix Ec Tab) 40 mg PO DAILY [facility] Last Admin: 04/28/17 09:40 Dose: 40 mg Rosuvastatin Calcium (Crestor) 10 mg PO HS [facility] Last Admin: 04/28/17 21:17 Dose: 10 mg - Labs Labs: 04/28/17 06:24 04/28/17 06:24 PT 14.4 SECONDS (9.7-12.2) H 04/18/17 11:15 INR 1.3 04/18/17 11:15 APTT 32 SECONDS (21-34) 04/18/17 11:15 - Constitutional Appears: Non-toxic, No Acute Distress - ENT Exam ENT Exam: Mucous Membranes Moist - Respiratory Exam Respiratory Exam: Clear to Ausculation Bilateral. absent: Accessory Muscle Use , Respiratory Distress - Cardiovascular Exam Cardiovascular Exam: REGULAR RHYTHM. absent: Tachycardia - GI/Abdominal Exam GI & Abdominal Exam: Soft, Tenderness (around incision). absent: Distended Additional comments: dressing c/d/i - Neurological Exam Neurological Exam: Alert, Awake, Oriented x3 - Psychiatric Exam Psychiatric exam: Normal Affect, Normal Mood - Skin Skin Exam: Normal Color, Warm Assessment and Plan - Assessment and Plan (Free Text) Assessment: 81M s/p laparoscopic converted open cholecystectomy Plan: Pt doing well post-op wbc trending down clear for d/c home from surgery pending final CT read will d/w Dr Liz Díaz, PGY3
[2017-04-29] MEDS ORDERED: Albuterol-Ipratrop 3 mg / 0.5 (3 ml) UD INH PRN (09:01)
--- NOTE | 2017-04-29 09:15 | CT ---
PROCEDURE: CT Chest with contrast (Pulmonary Angiogram) HISTORY: Chest pain. COMPARISON: None available. TECHNIQUE: Axial computed tomography images were obtained of the chest in the pulmonary arterial phase of enhancement. Coronal and sagittal reformatted images were created and reviewed. Intravenous contrast dose: 100 ml Visipaque 320 Radiation dose: Total exam DLP = 409.67 MGy-cm. This CT exam was performed using one or more of the following dose reduction techniques: Automated exposure control, adjustment of the mA and/or kV according to patient size, and/or use of iterative reconstruction technique. FINDINGS: PULMONARY ARTERIES: Unremarkable. No pulmonary embolism. AORTA: No acute findings. No thoracic aortic aneurysm. LUNGS: Bilateral atelectasis posterior basal segments. No nodules or mass. PLEURAL SPACES: Unremarkable. No effusion or pneuomothorax. HEART: Unremarkable. No cardiomegaly. No significant pericardial effusion. LYMPH NODES: No lymphadenopathy. BONES, CHEST WALL: Unremarkable. No fracture or destructive lesion OTHER FINDINGS: There is a large hiatal hernia. IMPRESSION: No pulmonary embolus. Bilateral atelectasis.
[2017-04-29] MEDS: Pantoprazole 40 mg EC Tab PO SCH (09:31)
--- NOTE | 2017-04-29 11:57 | CP.PCM.PN ---
Subjective - Date & Time of Evaluation Date of Evaluation: 04/28/17 Time of Evaluation: 16:30 - Subjective Subjective: PT SEEN WITH DR. GUILLEN ON ROUNDS. ALSO SEEN WITH DR. BRADEN DURING HER ROUNDS. PT COMPLAINING OF LEFT AND RIGHT SIDED LATERAL AND POSTERIOR RIB PAIN UPON COUGHING. ALSO ADMITS THAT HE FEELS SHARP "KNIFE-LIKE" PAIN UPON DEEP INSPIRATION. OTHER THAN THIS PT IS IN GOOD SPIRITS. EXAMINED BY DR. BRADEN. PER HER RECOMMENDATIONS ORDER A STAT CXR PA/LAT TO R/O POSSIBILITY OF PNEUMONIA. WILL CONTINUE IV ABX. PENDING CXR PT MAY BE D/C HOME TOMORROW WITH PO ABX. 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 NO FURTHER ORDERS. Objective - Vital Signs/Intake and Output Vital Signs (last 24 hours): Temp Pulse Resp BP Pulse Ox 97.5 F L 83 20 152/69 H 96 04/29/17 08:49 04/29/17 08:49 04/29/17 08:49 04/29/17 08:49 04/29/17 08:49 Intake and Output: 04/29/17 04/29/17 06:59 18:59 Intake Total 550 Output Total 750 400 Balance -750 150 - Medications Medications: Current Medications Acetaminophen (Tylenol 325mg Tab) 650 mg PO Q6 PRN PRN Reason: Temperature Last Admin: 04/26/17 16:42 Dose: 650 mg Albuterol/Ipratropium (Duoneb 3 Mg/0.5 Mg (3 Ml) Ud) 3 ml INH RQ2 PRN PRN Reason: Shortness of Breath Amlodipine Besylate (Norvasc) 5 mg PO DAILY [facility] Last Admin: 04/29/17 09:31 Dose: 5 mg Aspirin (Ecotrin) 81 mg PO DAILY [facility] Last Admin: 04/29/17 09:31 Dose: 81 mg Docusate Sodium (Colace) 100 mg PO BID [facility] Last Admin: 04/29/17 09:31 Dose: 100 mg Fenofibrate (Tricor) 145 mg PO DAILY [facility] Last Admin: 04/29/17 09:31 Dose: 145 mg Heparin Sodium (Porcine) (Heparin) 5,000 units SC Q12 [facility] Last Admin: 04/29/17 09:33 Dose: 5,000 units Piperacillin Sod/Tazobactam Sod (Zosyn 3.375 Gm Iv Premix) 3.375 gm in 50 mls @ 100 mls/hr IVPB Q8H [facility] Last Admin: 04/29/17 09:32 Dose: 100 mls/hr Metronidazole (Flagyl) 500 mg in 100 mls @ 100 mls/hr IVPB Q8H [facility] Last Admin: 04/29/17 06:09 Dose: 100 mls/hr Ondansetron HCl (Zofran Tab) 4 mg PO Q6 PRN PRN Reason: Nausea/Vomiting Pantoprazole Sodium (Protonix Ec Tab) 40 mg PO DAILY [facility] Last Admin: 04/29/17 09:31 Dose: 40 mg Rosuvastatin Calcium (Crestor) 10 mg PO HS [facility] Last Admin: 04/28/17 21:17 Dose: 10 mg - Labs Labs: 04/28/17 06:24 04/28/17 06:24 PT 14.4 SECONDS (9.7-12.2) H 04/18/17 11:15 INR 1.3 04/18/17 11:15 APTT 32 SECONDS (21-34) 04/18/17 11:15
--- NOTE | 2017-04-29 12:02 | CP.PCM.PN ---
Subjective - Date & Time of Evaluation Date of Evaluation: 04/29/17 Time of Evaluation: 12:02 - Subjective Subjective: afebrile Feeling better today. States pain is improving bilaterally lower chest LABS NOTED; D-DIMER ELEVATED / SEC TO SURGERY/INFECTION CT ANGIO CHEST-VE fOR PULMONARY EMBOLISM. BILATERAL ATELECTASIS. CASE DISCUSSED WITH MS CORONA HANNON. PATIENT ANXIOUS TO GO HOME. SWITCHED TO BY MOUTH AUGMENTIN 875MG TWICE A DAY X 5 DAYS. Objective - Vital Signs/Intake and Output Vital Signs (last 24 hours): Temp Pulse Resp BP Pulse Ox 97.5 F L 83 20 152/69 H 96 04/29/17 08:49 04/29/17 08:49 04/29/17 08:49 04/29/17 08:49 04/29/17 08:49 Intake and Output: 04/29/17 04/29/17 06:59 18:59 Intake Total 550 Output Total 750 400 Balance -750 150 - Medications Medications: Current Medications Acetaminophen (Tylenol 325mg Tab) 650 mg PO Q6 PRN PRN Reason: Temperature Last Admin: 04/26/17 16:42 Dose: 650 mg Albuterol/Ipratropium (Duoneb 3 Mg/0.5 Mg (3 Ml) Ud) 3 ml INH RQ2 PRN PRN Reason: Shortness of Breath Amlodipine Besylate (Norvasc) 5 mg PO DAILY [facility] Last Admin: 04/29/17 09:31 Dose: 5 mg Aspirin (Ecotrin) 81 mg PO DAILY [facility] Last Admin: 04/29/17 09:31 Dose: 81 mg Docusate Sodium (Colace) 100 mg PO BID [facility] Last Admin: 04/29/17 09:31 Dose: 100 mg Fenofibrate (Tricor) 145 mg PO DAILY [facility] Last Admin: 04/29/17 09:31 Dose: 145 mg Heparin Sodium (Porcine) (Heparin) 5,000 units SC Q12 [facility] Last Admin: 04/29/17 09:33 Dose: 5,000 units Piperacillin Sod/Tazobactam Sod (Zosyn 3.375 Gm Iv Premix) 3.375 gm in 50 mls @ 100 mls/hr IVPB Q8H [facility] Last Admin: 04/29/17 09:32 Dose: 100 mls/hr Metronidazole (Flagyl) 500 mg in 100 mls @ 100 mls/hr IVPB Q8H [facility] Last Admin: 04/29/17 06:09 Dose: 100 mls/hr Ondansetron HCl (Zofran Tab) 4 mg PO Q6 PRN PRN Reason: Nausea/Vomiting Pantoprazole Sodium (Protonix Ec Tab) 40 mg PO DAILY [facility] Last Admin: 04/29/17 09:31 Dose: 40 mg Rosuvastatin Calcium (Crestor) 10 mg PO HS [facility] Last Admin: 04/28/17 21:17 Dose: 10 mg - Labs Labs: 04/28/17 06:24 04/28/17 06:24 PT 14.4 SECONDS (9.7-12.2) H 04/18/17 11:15 INR 1.3 04/18/17 11:15 APTT 32 SECONDS (21-34) 04/18/17 11:15 - Constitutional Appears: No Acute Distress - Head Exam Head Exam: NORMAL INSPECTION - Eye Exam Eye Exam: EOMI, PERRL - ENT Exam ENT Exam: Normal Oropharynx - Respiratory Exam Respiratory Exam: Decreased Breath Sounds (BASES BILATERALLY.), NORMAL BREATHING PATTERN - Cardiovascular Exam Cardiovascular Exam: REGULAR RHYTHM, +S1, +S2 - GI/Abdominal Exam GI & Abdominal Exam: Soft, Tenderness (MILD TENDERNESS POSTOPERATIVE SITE. dRESSING DRY AND CLEAN. Gideon IN PLACE.), Normal Bowel Sounds - Extremities Exam Extremities Exam: Normal Capillary Refill. absent: Calf Tenderness - Neurological Exam Neurological Exam: Awake, CN II-XII Intact, Normal Gait, Oriented x3 - Psychiatric Exam Psychiatric exam: Normal Mood - Skin Skin Exam: Normal Color, Warm Assessment and Plan (1) Acute gangrenous cholecystitis Status: Acute (2) Status post cholecystectomy Status: Acute (3) Abdominal pain Status: Acute (4) Asthma Status: Acute
[2017-04-29 14:12] LABS: BASO % 0.4 % (0.0-2.0); EOS # 0.2 K/uL (0.0-0.7); EOS % 2.2 % (0.0-4.0); HEMATOCRIT 29.9 % (35.0-51.0); LYMPH # 1.4 K/uL (1.0-4.3); LYMPH % 13.3 % (20.0-40.0); MEAN CELL VOLUME 72.2 fL (80.0-94.0); MEAN CORPUSCULAR HEMOGLOBIN 23.8 pg (27.0-31.0); MEAN CORPUSCULAR HGB CONC 32.9 g/dL (33.0-37.0); MEAN PLATELET VOLUME 7.6 fL (7.2-11.7); MONO # 0.8 K/uL (0.0-0.8); MONO % 7.9 % (0.0-10.0); NRBC % 0.2 % (0.0-2.0); RED CELL DISTRIBUTION WIDTH 19.7 % (11.5-14.5); WHITE BLOOD COUNT 10.5 K/uL (4.8-10.8)
[2017-04-29 14:25] LABS: BLOOD UREA NITROGEN 9 mg/dL (9-20); CALCIUM 8.2 mg/dl (8.6-10.4); CARBON DIOXIDE 23 mmol/L (22-30); CHLORIDE 105 mmol/L (98-107); GFR AFRICAN-AMERICAN > 60; GLUCOSE,RANDOM 119 mg/dL (75-110); POTASSIUM 3.5 mmol/L (3.6-5.2); SODIUM 138 mmol/L (132-148)
[2017-04-29] MEDS ORDERED: Potassium Chloride 20 mEq ER Tab PO ONE (15:30)
[2017-04-29 15:50] VITALS: BP 126/70; PULSE 86; RESP 18; TEMP 98.6; O2SAT 98
--- NOTE | 2017-04-29 16:47 | CP.PCM.PN ---
Subjective - Date & Time of Evaluation Date of Evaluation: 04/29/17 Time of Evaluation: 16:45 - Subjective Subjective: PT CLEARED FOR D/C BY DR. Darcy BRADEN. PER DR. SAMPSON ESCOBAR DC PT WITH PO AUGMENTIN 875 MG BID X5 DAYS. 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 GORDY PEREA PT CLEARED FOR D/C PER HIS PERSPECTIVE; TO F/U IN HIS OFFICE NEXT WEEK FOR STAPLE REMOVAL. DR. GUILLEN MADE AWARE OF PLAN AND OK TO D/C TODAY. PT ENCOURAGED TO DO INC SPIR QHOUR. RX SENT TO HIS PHARMACY. RX FOR HOME HEALTH AIDE EVAL GIVEN TO CIRCUIT RIDER FOR THE PT PER HIS REQUEST. ALL D/C, MEDS, AND F/U INFORMATION DISCUSSED WITH PT AND HE VERBALIZES UNDERSTANDING OF ALL. Objective - Vital Signs/Intake and Output Vital Signs (last 24 hours): Temp Pulse Resp BP Pulse Ox 98.6 F 86 18 126/70 98 04/29/17 15:49 04/29/17 15:49 04/29/17 15:49 04/29/17 15:49 04/29/17 15:49 Intake and Output: 04/29/17 04/29/17 06:59 18:59 Intake Total 550 Output Total 750 400 Balance -750 150 - Medications Medications: Current Medications Acetaminophen (Tylenol 325mg Tab) 650 mg PO Q6 PRN PRN Reason: Temperature Last Admin: 04/26/17 16:42 Dose: 650 mg Albuterol/Ipratropium (Duoneb 3 Mg/0.5 Mg (3 Ml) Ud) 3 ml INH RQ2 PRN PRN Reason: Shortness of Breath Amlodipine Besylate (Norvasc) 5 mg PO DAILY [facility] Last Admin: 04/29/17 09:31 Dose: 5 mg Aspirin (Ecotrin) 81 mg PO DAILY [facility] Last Admin: 04/29/17 09:31 Dose: 81 mg Docusate Sodium (Colace) 100 mg PO BID [facility] Last Admin: 04/29/17 16:32 Dose: 100 mg Fenofibrate (Tricor) 145 mg PO DAILY [facility] Last Admin: 04/29/17 09:31 Dose: 145 mg Heparin Sodium (Porcine) (Heparin) 5,000 units SC Q12 [facility] Last Admin: 04/29/17 09:33 Dose: 5,000 units Piperacillin Sod/Tazobactam Sod (Zosyn 3.375 Gm Iv Premix) 3.375 gm in 50 mls @ 100 mls/hr IVPB Q8H [facility] Last Admin: 04/29/17 16:31 Dose: 100 mls/hr Metronidazole (Flagyl) 500 mg in 100 mls @ 100 mls/hr IVPB Q8H [facility] Last Admin: 04/29/17 15:32 Dose: 100 mls/hr Ondansetron HCl (Zofran Tab) 4 mg PO Q6 PRN PRN Reason: Nausea/Vomiting Pantoprazole Sodium (Protonix Ec Tab) 40 mg PO DAILY [facility] Last Admin: 04/29/17 09:31 Dose: 40 mg Rosuvastatin Calcium (Crestor) 10 mg PO HS [facility] Last Admin: 04/28/17 21:17 Dose: 10 mg - Labs Labs: 04/29/17 14:06 04/29/17 14:06 PT 14.4 SECONDS (9.7-12.2) H 04/18/17 11:15 INR 1.3 04/18/17 11:15 APTT 32 SECONDS (21-34) 04/18/17 11:15
--- NOTE | 2017-04-29 23:55 | CARD ---
APPROVED REPORT EKG Measurement Heart [id number] DC 124P64 [id number] <Conclusion> Normal sinus rhythm Normal ECG
--- NOTE | 2017-05-01 08:57 | DS ---
REASON FOR ADMISSION: This is an 81-year-old male with history of multiple admissions for small bowel obstruction, was admitted for abdominal pain, thought to be due to obstruction. HOSPITAL COURSE: Patient was admitted to medical floor and he has his obstruction symptom resolved, but patient stated that he continued to have some abdominal pain and found to have leukocytosis. Abdominal ultrasound showed suggestion for cholecystitis and patient underwent HIDA scan that showed cystic duct occlusion. The patient had a surgical consult done by Dr. Hill and patient underwent open cholecystectomy. The patient was found to have gangrenous gallbladder for which he was continued on antibiotics and was discharged to home in a stable condition to continue p.o. antibiotics for another 5 days and follow up with both Surgery and primary care physician. FINAL DIAGNOSES: 1. Acute cholecystitis, status post cholecystectomy. 2. Hypertensin. 3. Hypercholesterolemia. 4. Small bowel obstruction. Russell Fairbanks MD
== END 2017-04-29 18:54 | disposition home or self-care (01) | DRG 415 ==
LOC: C.ER 15:58 → C.9E 21:20 → C.6T 22:40 → OBSVTOIN 04-20 20:14
PROVIDERS: ADMIT Internal Medicine; ATTEND Internal Medicine
PROC: 0FJ44ZZ Inspection of Gallbladder, Percutaneous Endoscopic Approach (ICD-10-PCS; 2017-04-22)
PROC: BF03YZZ Plain Radiography of Gallbladder and Bile Ducts using Other Contrast (ICD-10-PCS; 2017-04-22)
PROC: 0FT40ZZ Resection of Gallbladder, Open Approach (ICD-10-PCS; principal; 2017-04-22 11:30)
DX: K80.01 Calculus of gallbladder with acute cholecystitis with obstruction (principal); D62 Acute posthemorrhagic anemia; K56.50 Intestinal adhesions [bands], unspecified as to partial versus complete obstruction; J98.11 Atelectasis; E78.00 Pure hypercholesterolemia, unspecified; I10 Essential (primary) hypertension; J45.909 Unspecified asthma, uncomplicated; K21.9 Gastro-esophageal reflux disease without esophagitis; K57.90 Diverticulosis of intestine, part unspecified, without perforation or abscess without bleeding; Z85.038 Personal history of other malignant neoplasm of large intestine; Z90.49 Acquired absence of other specified parts of digestive tract; Z87.01 Personal history of pneumonia (recurrent); Z79.82 Long term (current) use of aspirin; Z79.899 Other long term (current) drug therapy

== ENCOUNTER 2017-09-29 00:52 | Inpatient (IN) | payer OTHER ==
--- NOTE | 2017-09-29 00:59 | C.PDOC ---
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 Paramedics arrived to the scene and patient complained of 7/10 pain he described as pressure. Patient was give 324 aspirin and 3 sublingual nitro enroute; on arrival patient no longer complains of chest pain. Time Seen by Provider: 09/29/17 00:58 Chief Complaint (Nursing): Chest Pain History Per: Patient History/Exam Limitations: no limitations Onset/Duration Of Symptoms: Hrs Current Symptoms Are (Timing): Gone Severity: Moderate Pain Scale Rating Of: 7 Quality: Pressure Associated Symptoms: denies: Nausea, Dyspnea, Diaphoresis, Syncope Modifying Factors: None Exacerbating Factors: None Alleviating Factors: None Nitro Therapy Administered: 3, Per EMS, Complete Relief Recent travel outside of the [place]: No Past Medical History Reviewed: Historical Data, Nursing Documentation, Vital Signs Vital Signs: Last Vital Signs Temp 98.9 F 09/29/17 00:57 Pulse 94 H 09/29/17 01:32 Resp 18 09/29/17 01:32 BP 133/65 09/29/17 01:32 Pulse Ox 94 L 09/29/17 01:35 - Medical History PMH: Asthma, Bronchitis, HTN, Hypercholesterolemia, Pneumonia (2010) Surgical History: Appendectomy, Endoscopy, Hernia Repair - [facility] Procedures INSPECTION OF GALLBLADDER, PERCUTANEOUS ENDOSCOPIC APPROACH (04/20/17) INSPECTION OF LOWER INTESTINAL TRACT, ENDO (02/18/16) RADIOGRAPHY OF GALLBLADDER & BILE DUCT USING OTH CONTRAST (04/20/17) RESECTION OF GALLBLADDER, OPEN APPROACH (04/20/17) Family History: States: No Known Family Hx - Social History Hx Tobacco Use: No Hx Alcohol Use: No Hx Substance Use: No - Immunization History Hx Tetanus Toxoid Vaccination: Yes Hx Influenza Vaccination: Yes Hx Pneumococcal Vaccination: Yes Review Of Systems Constitutional: Negative for: Fever, Chills Eyes: Negative for: Vision Change Cardiovascular: Positive for: Chest Pain. Negative for: Palpitations Respiratory: Negative for: Cough, Shortness of Breath Gastrointestinal: Negative for: Nausea, Vomiting Genitourinary: Negative for: Dysuria, Hematuria Musculoskeletal: Negative for: Neck Pain Skin: Negative for: Rash Neurological: Negative for: Weakness, Numbness Physical Exam - Physical Exam Appears: Non-toxic, Other (Awake, alert) Skin: Warm, Dry Head: Normacephalic Eye(s): bilateral: Normal Inspection Oral Mucosa: Moist Neck: Trachea Midline, No Midline Cervical Tenderness, No Paracervical Tenderness, No Step Off Deformity, Supple Lymphatic: No Adenopathy Chest: Symmetrical, No Tenderness Cardiovascular: Rhythm Regular Respiratory: No Rales, No Rhonchi, No Wheezing Gastrointestinal/Abdominal: Soft, No Tenderness, No Distention, Other (RUQ scar) Back: No CVA Tenderness Neurological/Psych: Oriented x3, Other (No focal deficits) ED Course And Treatment - Laboratory Results Result Diagrams: 09/29/17 01:12 09/29/17 01:12 ECG: Interpreted By Me, Viewed By Me ECG Rhythm: Sinus Rhythm (98), L BBB, Nonspecific Changes (changed from 04/21/17 ) O2 Sat by Pulse Oximetry: 94 Pulse Ox Interpretation: Normal - Radiology CXR: Interpreted by Me, Viewed By Me CXR Interpretation: Yes: Cardiomegaly, Other (mild chf). No: Infiltrates, Fracture Progress Note: EKG, blood work, CXR, and urinalysis ordered. 12:44AM sent ekg from original tracing to dr garduno. 12:49 sent ekg from the ed and previous one. As pt is cp free, does not meet criteria of code heart as per Dr Garduno. 1 am vitals stable, still cp free Critical Care Time - Critical Care Note Total Time (in mins): 30 Documented critical care: time excludes all time spent performing seperately billable procedures. Disposition Discussed With : Russell Fairbanks Comment: accepted the pt on his service and took over the care at 1:59AM Doctor Will See Patient In The: Hospital Counseled Patient/Family Regarding: Studies Performed, Diagnosis - Disposition Referrals: Russell Fairbanks MD [Primary Care Provider] - Disposition: HOSPITALIZED Disposition Time: 00:58 Condition: GUARDED Forms: [facility] (Telugu) - Clinical Impression Clinical Impression: Chest pain - Scribe Statement The provider has reviewed the documentation as recorded by the Scribe John Valente All medical record entries made by the Scribe were at my direction and personally dictated by me. I have reviewed the chart and agree that the record accurately reflects my personal performance of the history, physical exam, medical decision making, and the department course for this patient. I have also personally directed, reviewed, and agree with the discharge instructions and disposition. Decision To Admit - Pt Status Changed To: Hospital Disposition Of: Inpatient - Admit Certification Admit to Inpatient:: After my assessment, the patient will require hospitalization for at least two midnights. This is because of the severity of symptoms shown, intensity of services needed, and/or the medical risk in this patient being treated as an outpatient. - InPatient: Physician Admission Certification: I certify that this patient requires 2 or more midnights of care for the following reason:: After my assessment, the patient will require hospitalization for at least two midnights. This is because of the severity of symptoms shown, intensity of services needed, and/or the medical risk in this patient being treated as an outpatient. - . Bed Request Type: Telemetry Admitting Physician: Russell Fairbanks Patient Diagnosis: Chest pain
[2017-09-29 01:05] VITALS: BMI 25.1
[2017-09-29 01:19] LABS: BASO # 0.1 K/uL (0.0-0.2); BASO % 1.6 % (0.0-2.0); EOS # 0.2 K/uL (0.0-0.7); EOS % 3.6 % (0.0-4.0); HEMOGLOBIN 9.9 g/dL (12.0-18.0); LYMPH # 1.7 K/uL (1.0-4.3); LYMPH % 25.6 % (20.0-40.0); MEAN CELL VOLUME 67.2 fL (80.0-94.0); MEAN CORPUSCULAR HEMOGLOBIN 21.5 pg (27.0-31.0); MEAN CORPUSCULAR HGB CONC 31.9 g/dL (33.0-37.0); MEAN PLATELET VOLUME 9.3 fL (7.2-11.7); MONO # 0.7 K/uL (0.0-0.8); MONO % 10.5 % (0.0-10.0); NEUT # 3.8 K/uL (1.8-7.0); NEUT % 58.7 % (50.0-75.0); NRBC % 0.1 % (0.0-2.0); RBC 4.61 Mil/uL (4.40-5.90); RED CELL DISTRIBUTION WIDTH 19.7 % (11.5-14.5); WHITE BLOOD COUNT 6.5 K/uL (4.8-10.8)
[2017-09-29 01:34] LABS: INR 1.1
[2017-09-29 01:41] LABS: ALB/GLOB RATIO 1.2 (1.0-2.1); ALBUMIN 3.9 g/dL (3.5-5.0); ALT/SGPT 23 U/L (21-72); AST/SGOT 30 U/L (17-59); BLOOD UREA NITROGEN 15 mg/dL (9-20); CALCIUM 8.8 mg/dl (8.6-10.4); GFR AFRICAN-AMERICAN > 60; GFR NON-AFRICAN AMERICAN 58; LIPASE 86 U/L (23-300)
[2017-09-29 01:53] LABS: B-TYPE NATRIURETIC PEPTIDE 195 pg/mL (0-900)
[2017-09-29 02:56] LABS: SQUAMOUS EPITHIAL < 1 /hpf (0-5); URINE BILIRUBIN NEGATIVE (NEGATIVE); URINE BLOOD NEGATIVE (NEGATIVE); URINE CLARITY Clear (Clear); URINE COLOR Straw (YELLOW); URINE GLUCOSE (UA) NORMAL (Normal); URINE LEUKOCYTE ESTERASE NEG Leu/uL (Negative); URINE PROTEIN NEGATIVE (NEGATIVE); URINE UROBILINOGEN NORMAL mg/dL (0.2-1.0)
--- NOTE | 2017-09-29 08:21 | RAD ---
Chest x-ray single frontal view History: Chest pain. Comparison: 04/28/2017 Findings: Moderate venous congestion with right hilar prominence. Cardiomegaly. Calcification at the aortic knob. Degenerative changes in the spine and shoulders. Productive bone formation at the undersurface of the distal right clavicle. Surgical clips in the right upper abdomen. Impression: Moderate venous congestion with right hilar prominence. Cardiomegaly. Calcification at the aortic knob. Degenerative changes in the spine and shoulders. Productive bone formation at the undersurface of the distal right clavicle. Surgical clips in the right upper abdomen.
[2017-09-29] MEDS ORDERED: Enoxaparin 40 mg Syringe SC SCH (10:00)
[2017-09-29] MEDS ORDERED: Pantoprazole 40 mg EC Tab PO SCH (12:00)
[2017-09-29] MEDS ORDERED: PrednisoLONE 1% Opht Susp(5 ml) OS SCH (12:00)
[2017-09-29 12:25] LABS: CK-MB 5.28 ng/mL (0.0-3.38); TROPONIN I 0.573 ng/mL (0.00-0.120)
[2017-09-29] MEDS ORDERED: Enoxaparin 60 mg Syringe SC SCH (18:00)
[2017-09-29 18:10] LABS: CK-MB 4.24 ng/mL (0.0-3.38); TROPONIN I 0.687 ng/mL (0.00-0.120)
--- NOTE | 2017-09-29 20:14 | CP.PCM.PN ---
Subjective - Date & Time of Evaluation Date of Evaluation: 09/29/17 Time of Evaluation: 20:09 - Subjective Subjective: Evaluated rhythm upon request of Dr. Garner, as reported as Vtach, which LBBB noticed which preceded by p wave, rate in 115/min, the shape of complex unchanged from the prior qrs complex on the monitor and prior ekg suggesting sinus origin rather ventricular with continued LBBB, patient was asymptomatic, cp reported only last night at time of presentation then resolved. Labs, meds reviewed, d/w Dr. Garner, patient anyway going to [facility] for cath for NSTEMI, which he could go from the same floor. 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 Objective - Vital Signs/Intake and Output Vital Signs (last 24 hours): Temp Pulse Resp BP Pulse Ox 97.9 F 76 18 170/81 H 95 09/29/17 16:31 09/29/17 19:36 09/29/17 19:30 09/29/17 19:30 09/29/17 19:30 Intake and Output: 09/29/17 09/30/17 18:59 06:59 Intake Total 400 Output Total 180 200 Balance 220 -200 - Medications Medications: Current Medications Aspirin (Ecotrin) 81 mg PO DAILY [facility]S [facility] Last Admin: 09/29/17 12:54 Dose: 81 mg Clopidogrel Bisulfate (Plavix) 75 mg PO DAILY [facility] 234 [facility]S [facility] Last Admin: 09/29/17 14:48 Dose: 75 mg Enoxaparin Sodium (Lovenox) 60 mg SC BID [facility] 234 [facility]S [facility] Last Admin: 09/29/17 18:31 Dose: 60 mg Loratadine (Claritin) 10 mg PO DAILY [facility] Last Admin: 09/29/17 12:54 Dose: 10 mg Metoprolol Tartrate (Lopressor) 25 mg PO BID [facility] 234 [facility]S [facility] Last Admin: 09/29/17 17:37 Dose: 25 mg Pantoprazole Sodium (Protonix Ec Tab) 40 mg PO DAILY [facility] 234 [facility]S [facility] Last Admin: 09/29/17 12:54 Dose: 40 mg Prednisolone Acetate (Pred Forte 1% Opht Susp) 0 ml OS DAILY [facility] 234 B[facility]S [facility] Last Admin: 09/29/17 13:34 Dose: 1 drop Rosuvastatin Calcium (Crestor) 40 mg PO [facility] Tramadol HCl (Ultram) 50 mg PO DAILY PRN PRN Reason: Pain, moderate (4-7) - Labs Labs: 09/29/17 01:12 09/29/17 01:12 PT 12.0 SECONDS (9.7-12.2) 09/29/17 01:12 INR 1.1 09/29/17 01:12 APTT 32 SECONDS (21-34) 09/29/17 01:12
--- NOTE | 2017-09-29 21:40 | CARD ---
APPROVED REPORT EKG Measurement Heart [id number] CO 132P60 [id number] <Conclusion> Normal sinus rhythm Left bundle branch block Abnormal ECG
--- NOTE | 2017-09-30 01:47 | CON ---
DATE: REASON FOR CONSULTATION: Chest pain. HISTORY OF PRESENT ILLNESS: The patient is an 82-year-old male who has known prior cardiac history according to him, presented because of chest pain and exertional dyspnea as well as periods of palpitation. The history was obtained by maritime pilot, who happened to be the weatherization technician at the bedside. At the moment of my history, the patient was chest pain free. SOCIAL HISTORY: Nonsmoker, nondrinker. MEDICATIONS: The patient's home medications include Crestor 10 mg once a day, tramadol 50 mg daily, omeprazole 40 mg once a day, Claritin 10 mg once a day, aspirin 81 mg once a day, and Protonix 40 mg twice a day. REVIEW OF SYSTEMS: No fever or chills. No dizziness or syncope. No productive cough. PHYSICAL EXAMINATION: GENERAL: The patient is an elderly male who does not appear to be in any distress. VITAL SIGNS: Blood pressure 172/78, heart rate 85, temperature 97.5, respirations 20. HEENT: Normocephalic. NECK: No JVD. CHEST: Clear. HEART: S1 and S2, regular. ABDOMEN: Soft. EXTREMITIES: No edema. LABORATORY DATA: SMA-7: Sodium 140, potassium 4, chloride 107, CO2 of 22, glucose 104, BUN 15, creatinine 1.2. Troponins were as follows 0.059 and 0.573. Lipase is within normal limits. PT, PTT, and INR are within normal limits. Hemoglobin and hematocrit 9.9 and 30.9. White count and platelet count are within normal limits. EKG reveals sinus rhythm, with left bundle branch block. Chest x-ray revealed borderline cardiomegaly, prominent central vasculature. ASSESSMENT: 1. Chest pain, consider a small myocardial infraction. 2. Left bundle branch block which is a new finding. Most recent EKG was in March of last year which was normal sinus rhythm. 3. Anemia with history of stool occult positive in 01/2016. RECOMMENDATIONS: Continue current aspirin 81 mg once a day, increase Lovenox to 60 mg twice a day. Start Plavix 75 mg one a day. Continue oral Protonix. Continue aspirin 81 mg once a day. Start Crestor 20 mg once a day, Lopressor 25 mg twice a day. Cardiac catheterization was recommended. The patient will be scheduled for 12 noon tomorrow. Jono Marquis MD
--- NOTE | 2017-09-30 01:53 | PN ---
DATE: ____ It was reported to me by the nurse that the patient's third enzyme is more elevated at 0.687 and it is trending up. I was also notified that the patient has recurrent nonsustained ventricular tachycardia. The patient was earlier scheduled for cardiac catheterization for tomorrow after discussing the procedure with the patient's sister and the patient's nephew; however, in view of these findings and the fact that the patient has baseline left bundle branch block, I discussed the case with the primary physician, Dr. Fairbanks, and an urgent cardiac catheterization was advised with the possibility of intervention to be performed at [facility]. Dr. Hartman was contacted, and he is able to accept the patient and do the procedure on an urgent basis. I did contact the family at the two available numbers on the chart. The first number, , which is the patient's sister Stella Schwartz, and I left the message; and the other available number [phone] did not accept the messages. The patient himself is capable of making his own decision and at this point, we will proceed with the transfer to [facility]. Jono Marquis MD
--- NOTE | 2017-09-30 06:36 | HP ---
HISTORY OF PRESENT ILLNESS: This is an 82-year-old male with history of multiple medical problems presented to emergency room with chest pain. The patient stated that he went to sleep, and he woke up with pressure-like severe chest pain, 03/04. The patient called 911. The patient was given aspirin and nitroglycerin on his way to the hospital. The patient was found to have elevated troponin of 0.57 and elevated CPK, CK-MB of 5.28. The patient was treated in the emergency room and admitted for further management. Cardiology consultation was called also for further management. Other review of system is negative. ALLERGIES: POSITIVE FOR DIPHENHYDRAMINE. MEDICATIONS: As per MAR. PAST MEDICAL HISTORY: Hypertension, status post partial colectomy, status post cholecystectomy, hypercholesterolemia. SOCIAL HISTORY: Ex-smoker, ex-ETOH abuse, and no other substance abuse. FAMILY HISTORY: Not contributory. PHYSICAL EXAMINATION: GENERAL: The patient is in bed, not in any cardiopulmonary distress at the time of this examination. VITAL SIGNS: Blood pressure 171/85, temperature 97.9, respiratory rate 20, and pulse 84. HEENT: Pupils equal and reactive to light. Normal-appearing mucosa of the conjunctivae, oropharynx, and nasal membrane mucosa. NECK: Supple. No JVD. No carotid bruit. No lymph node. No thyromegaly. CHEST AND LUNGS: Bilateral symmetrical expansion. Good air exchange. No rales, no rhonchi. CARDIOVASCULAR SYSTEM: PMI not localized. S1, S2. No additional sounds. ABDOMEN: Normoactive bowel sounds. No tenderness. No organomegaly. No masses. EXTREMITIES: No cyanosis, no clubbing, no edema. PUBLIC RELATIONS SPECIALIST: Alert, awake, oriented x2. No neurological deficit could be appreciated. ASSESSMENT: 1. Chest pain with fractional elevation of troponin. 2. Hypertension. 3. Hypercholesterolemia. 4. Hypothyroidism. 5. Gastroesophageal reflux disease. 6. Status post partial colectomy. 7. Status post cholecystectomy. PLAN: Cardiology consult and follow recommendations. Trend cardiac enzymes. Continue aspirin and beta-graciela. Echocardiogram. [facility] MD Magdi
[2017-09-30 07:52] LABS: BASO % 0.5 % (0.0-2.0); EOS # 0.1 K/uL (0.0-0.7); EOS % 3.1 % (0.0-4.0); HEMOGLOBIN 9.9 g/dL (12.0-18.0); LYMPH # 1.1 K/uL (1.0-4.3); LYMPH % 22.9 % (20.0-40.0); MEAN CELL VOLUME 66.4 fL (80.0-94.0); MEAN CORPUSCULAR HGB CONC 33.1 g/dL (33.0-37.0); MEAN PLATELET VOLUME 9.1 fL (7.2-11.7); MONO # 0.6 K/uL (0.0-0.8); MONO % 12.9 % (0.0-10.0); NEUT # 2.8 K/uL (1.8-7.0); NEUT % 60.6 % (50.0-75.0); NRBC % 0.1 % (0.0-2.0); RBC 4.52 Mil/uL (4.40-5.90); RED CELL DISTRIBUTION WIDTH 19.6 % (11.5-14.5); WHITE BLOOD COUNT 4.6 K/uL (4.8-10.8)
[2017-09-30 08:05] LABS: ALBUMIN 3.6 g/dL (3.5-5.0); ALT/SGPT 29 U/L (21-72); AST/SGOT 35 U/L (17-59); BLOOD UREA NITROGEN 13 mg/dL (9-20); CALCIUM 8.7 mg/dl (8.6-10.4); GFR AFRICAN-AMERICAN > 60; GFR NON-AFRICAN AMERICAN 58
[2017-09-30 08:40] VITALS: BP 169/84; PULSE 80; RESP 20; TEMP 98; O2SAT 99
--- NOTE | 2017-09-30 12:51 | CARD ---
APPROVED REPORT EKG Measurement Heart [id number] <Conclusion> Normal sinus rhythm Cannot rule out Anterior infarct, age undetermined Prolonged QT Abnormal ECG
== END 2017-09-30 23:15 | disposition short-term general hospital (02) | DRG 281 ==
LOC: SUPCPDRO 00:52 → C.ER 00:52 → C.9E 01:58 → C.5S 07:03
PROVIDERS: ADMIT Internal Medicine; ATTEND Internal Medicine
DX: I21.4 Non-ST elevation (NSTEMI) myocardial infarction (principal); I47.2 Ventricular tachycardia; I10 Essential (primary) hypertension; I44.7 Left bundle-branch block, unspecified; K21.9 Gastro-esophageal reflux disease without esophagitis; E03.9 Hypothyroidism, unspecified; E78.00 Pure hypercholesterolemia, unspecified; F10.11 Alcohol abuse, in remission; Z87.891 Personal history of nicotine dependence; Z90.49 Acquired absence of other specified parts of digestive tract